=== PATIENT | female | born 1955 | race Caucasian/White ===

== ENCOUNTER → 2023-08-12 | Outpatient (CLI) | payer SELFPAY ==
--- NOTE | 2023-08-12 16:26 | CT_ITS ---
INDICATION: dilated bile ducts EXAMINATION: CT ABDOMEN WITH IV CONTRAST CT Abdomen W/ Contrast Injection TECHNIQUE: Helically acquired images were obtained of the abdomen following IV contrast. A radiation dose optimization technique was used for this scan. IV Contrast dosage and agent: Oral contrast: None. RADIATION DOSAGE (If Supplied By Facility): CTDIvol = ( 16.58 ) mGy, DLP = ( 551.69 ) mGycm COMPARISON: FINDINGS: LOWER CHEST: Lung bases are clear. No cardiomegaly or pericardial effusion. LIVER: Homogeneous. No focal mass. GALLBLADDER AND BILIARY TREE: Cholelithiasis. Mild gallbladder wall thickening. There is intra- and extrahepatic biliary ductal dilation. PANCREAS: No focal cystic or solid mass. SPLEEN: Normal size without focal cystic or solid mass. ADRENAL GLANDS: No nodules. KIDNEYS AND URETERS: Normal renal size and position. No hydronephrosis. PERITONEUM: No ascites or free air. No other fluid collection. BOWEL: No stomach or bowel distension. No focal inflammatory change. LYMPH NODES: No enlarged mesenteric or retroperitoneal lymph nodes. VESSELS: Aorta is non-dilated. ABDOMINAL WALL: No discrete abdominal wall hernia. BONES: No lytic or blastic abnormality. Disc protrusion at L5-S1 posteriorly. CT/Abdomen WITH IV Contrast IMPRESSION: Cholelithiasis. Mild gallbladder wall thickening. There is intra- and extrahepatic biliary ductal dilation. Electronically Signed: Abdirizak Esposito DO at 17:04 EDT ,
[2023-08-12 17:00] LABS: CREATININE FINGERSTICK < 1.0 mg/dL (0.55-1.02); EGFR FINGERSTICK > 60.0000 mL/min (>60)
== END | disposition home or self-care (01) ==
PROVIDERS: PCP Physician Assistant; Referring Provider Surgery; Visit Provider Surgery
DX: K83.8 Other specified diseases of biliary tract (principal); K80.20 Calculus of gallbladder without cholecystitis without obstruction; R74.8 Abnormal levels of other serum enzymes
CPT/HCPCS: 74160; Q9967

== ENCOUNTER → 2023-08-12 | Outpatient (CLI) | payer SELFPAY ==
[2023-08-12 14:48] LABS: Absolute Lymphocyte Count 1.99 X10^3/uL (0.83-4.51); Absolute Neutrophil Count 1.9 X10^3/uL (2.0-7.7); Basophil# 0.03 X10^3/uL; Basophil% 0.7 % (0-1); Eosinophil# 0.08 X10^3/uL; Eosinophils% 1.8 % (0-5); Hematocrit 40.2 % (37-47); Hemoglobin 13.3 g/dL (12.0-15.0); Lymphocyte # 1.99 X10^3/ul (0.83-4.51); Lymphocyte % 44.5 % (19-41); Mean Corp Hgb Conc 33.1 g/dL (32-36); Mean Corpuscular Volume 90.5 fL (81-99); Mean Platelet Vol. 9.2 fl (6.2-12.0); Monocyte# 0.43 X10^3/uL; Monocyte% 9.6 % (0-10); NRBC Flagged by Analyzer 0 % (0-5); Neutrophil # 1.93 X10^3/uL (2.7-7.7); Neutrophil % 43.2 % (47-70); Platelet Count 171 K/mm3 (150-450); RBC Distribution Width CV 12.6 % (11.6-14.6); RBC Distribution Width SD 41.7 fl (35.1-43.9); Red Blood Count 4.44 M/mm3 (4.2-5.4); White Blood Count 4.5 K/mm3 (4.4-11.0)
[2023-08-12 15:09] LABS: AST(SGOT) 26 U/L (15-37); Alanine Aminotransfer ALT/SGPT 44 U/L (13-56); Albumin, Serum 3.6 g/dL (3.2-5.0); Alkaline Phosphatase 217 U/L (45-117); Bilirubin, Direct 0.16 mg/dL (0.00-0.30); Globulin 3.5 g/dL (2.2-4.2); Protein, Total 7.1 g/dL (6.4-8.2)
== END | disposition home or self-care (01) ==
LOC: PAVLAB 14:19
PROVIDERS: PCP Physician Assistant; Referring Provider Surgery; Visit Provider Surgery
DX: K80.20 Calculus of gallbladder without cholecystitis without obstruction (principal)
CPT/HCPCS: 36415; 80076; 85025

== ENCOUNTER 2023-09-02 08:48 | Observation (INO) | payer SELFPAY ==
--- NOTE | 2023-09-01 | GALL_PTH ---
PATIENT: HELENA BRYAN LOC: MS3 U#:[id number] AGE/SX: 67/F ROOM: [facility] [place] RE09/02/[address]: Dr. Samra Duval MD : 1955 BED: 1 DIS: 09/02/2023 SPEC #: [id number] RECD: 09/02/23 11:05 STATUS: GUILLERMO RELuigi #: [id number] FRANCINE: 09/01/23 00:[address]: Samra Duval DEPT: SURGICAL PATHOLOGY RECD BY: Ben Jiménez ENTERED: 09/02/23 11:05 SP TYPE: RONY SANTOS DR: Camron Christianson PA-C Tissues: Gallbladder, NOS Procedures: Surgery Specimen Level III HEADER OPERATION: Laparoscopic, cholecystectomy with IOC PRE-OP DIAGNOSIS: Cholelithiasis, elevated liver enzymes, dilated bile duct TISSUE SUBMITTED: Gallbladder MICROSCOPIC DIAGNOSIS Gallbladder, cholecystectomy: Chronic cholecystitis and cholelithiasis. AM/mr 09/03/2023 MICROSCOPIC DESCRIPTION Slides are reviewed. GROSS DESCRIPTION Received is one container labeled with the patient's name and designated gallbladder. The specimen consists of a previously partially opened gallbladder measuring 8.0 cm in length and up to 2.7 cm in diameter. The external surface is pink-brady, smooth and glistening for the most part. Focally it is granular, hemorrhagic and contains cautery artifact. The gallbladder contains small amount of brownish-hemorrhagic bile. Present in the gallbladder and in the container are multiple multifaceted brown stone measuring in aggregate 7.0 x 4.0 x 3.0 cm and 0.2 to 3.5 cm in greatest dimension. The mucosa is bile-stained and without any mass lesions. The gallbladder wall measures up to 0.3 cm in thickness. Brine Room Laborer sections from the gallbladder and the cystic duct are submitted in one cassette. / SJ: 09/02/23 TC:3 CPT: 22558
[2023-09-02] VITALS (15 sets, daily range): BP systolic 112–166; BP diastolic 64–78; PULSE 58–87; RESP 16–18; TEMP 36.1–36.9; O2SAT 92–100; BMI 33.3
--- NOTE | 2023-09-02 06:30 | RAD_ITS ---
STUDY: INTRAOPERATIVE CHOLANGIOGRAM. REASON FOR EXAM: Female, 67 years old. Laparoscopic cholecystectomy. FLUOROSCOPY TIME (if supplied): ( 40.7 seconds ) minutes/seconds. 13.29 mGy. TECHNIQUE: An intraoperative cholangiogram was performed by the surgeon. Imaging was submitted. COMPARISON: None. FINDINGS: No intraluminal filling defect is seen. There is free flow of contrast into the duodenum. RAD/Cholangiogram/ O R,Initial IMPRESSION: Unremarkable intraoperative cholangiogram. Electronically Signed: Torrey Silverman MD at 8:41 EDT ,
[2023-09-02] MEDS: Lactated Ringers 1,000 ML 15 ML IV (06:44)
--- NOTE | 2023-09-02 06:46 | EKG12_ITS ---
Test Reason : PREOP Blood Pressure : / mmHG Vent. Rate : 062 BPM Atrial Rate : 062 BPM P-R Int : 170 ms QRS Dur : 084 ms QT Int : 416 ms P-R-T Axes : 028 002 014 degrees QTc Int : 422 ms Normal sinus rhythm Inferior infarct , age undetermined Cannot rule out Anterior infarct , age undetermined vs V2, V3 lead reversal Abnormal ECG Confirmed by Janak Yang ([id number]), web content editor FILIPPO BILL ([id number]) on 09/10/2023 1:16:09 PM Referred By: Camron Christianson Confirmed By:Janak Yang
--- NOTE | 2023-09-02 07:10 | HP.PCM.SX_ITS ---
HPI - General General Date of Service: 09/02/23 HPI Narrative HELENA BRYAN, is a 67 F who presents for laparoscopic cholecystectomy with cholangiograms. Patient's repeat blood work at time of office visit LFTs were normal also did a CAT scan did not obviously see any choledocholithiasis like the first CAT scan and the ducts were less dilated. Patient's epigastric abdominal pain has improved with the omeprazole given at time of appointment. office visit 08/12/23 HPI HPI: 67-year-old female presents for epigastric pain states she has had it for about a couple months describes as more of a pressure but rates it a 5/10 does not take any pain meds for it. Patient did have a CT abdomen pelvis with called a dilated common bile duct as well as a large gallstone in the gallbladder and her AST and ALT were elevated with an elevated alk phos but normal total bili on 07/11/2023. Patient does state her pain was worse at that time currently states it is little better. Patient was able to eat a chicken sandwich as well as chicken nuggets for lunch today without any increased issues or nausea. Patient's never had any abdominal surgeries not on any medications. [facility] Medical History (Updated 09/02/23 @ 07:[address] Samra Duval MD) Wears glasses Wears dentures Post-menopausal Arthritis Gastric reflux Non-smoker Leg cramps History of edema Constipation Home Medications ?Medication ?Instructions ?Recorded ?Last Taken ?Type ascorbic acid (vitamin C) 500 mg 500 mg PO DAILY 08/29/23 09/01/23 History tablet (C-500) omeprazole 40 mg capsule,delayed 40 mg PO DAILY 08/29/23 09/02/23 History release Allergy/AdvReac Type Severity Reaction Status Date / Time No Known Allergies Allergy Verified 09/02/23 06:27 Family History (Updated 08/12/23 @ 13:34 by Alexa Wade) Mother Hypertension Surgical History (Updated 08/29/23 @ 09:56 by Jyoti Saure) Hx of vaginal surgery Social History (Updated 08/12/23 @ 13:35 by Alexa Wade) Smoking Status: Never smoker alcohol intake: never Vital Signs Vital Signs Vital Signs: 09/02/23 06:30 09/02/23 06:32 Temperature 97.0 F L Temperature Source Temporal Pulse Rate 67 Respiratory Rate 18 Respiratory Pattern Normal Blood Pressure 140/68 H Blood Pressure Mean 92 Blood Pressure Source Monitor Blood Pressure Position Semi-Fowlers Blood Pressure Location Left Arm Pulse Ox 100 Oxygen Delivery Method Warm Humidified Isolette Weight Weight: 176 lb 2.389 oz Body Mass Index (BMI) 33.3 Physical Exam Const alert, oriented x3 and no apparent distress HEENT normocephalic and head/scalp atraumatic Resp normal respiratory effort Cardio regular rate GI soft to palpation and non-tender; Negative for non-distended Palpation: Negative for guarding Extremity no clubbing, cyanosis or edema Skin no rashes or lesions noted Neuro CN's II-XII intact bilaterally Psych mental status grossly normal Assessment & Plan Assessment/Plan (1) Cholelithiasis: (2) Elevated liver enzymes: (3) Dilated bile duct: PLAN: Plan Patient's elevated liver functions as well as dilated bile ducts had resolved/improved per CAT scan done at the time of office visit 08/12/2023 Reviewed the anatomy with the patient and discussed the procedure: laparoscopic cholecystectomy with possible cholangiograms, possible open. Review risks including but not limited to bleeding, infection, hernia, bile leak, retained gallstones requiring another procedure ERCP- Endoscopic Retrograde Cholangiopancreatography, injury to another organ (bile ducts, common bile duct, small bowel, etc.) and conversion to an open procedure. All questions were answered. Samra Duval M.D. Pager: [phone] [facility] [address] [place] [address], [address] [place] [id number] Office: [phone]
[2023-09-02] MEDS: Cefazolin 2 GM in 0.9% Normal Saline (100mL Bag) 100 ML IV (07:23)
[2023-09-02] MEDS: Bupivacaine Mpf 0.5% 30 ML VIAL (08:45)
--- NOTE | 2023-09-02 08:47 | OP.PCM_ITS ---
Report of Operation Date of Procedure: 09/02/23 Pre-Operative Diagnosis: Cholelithiasis, history of elevated LFTs and dilated c ommon bile duct Post-Operative Diagnosis: same, choledocholithiasis Surgery/Procedure Performed:: laparoscopic cholecystectomy with cholangiograms Description of Surgical Findings:: distal common bile duct stone seen on cholangiogram Surgeon: Samra Duval safety belt installer: Elida Mayo Type of Anesthesia: General/Supplemental
--- NOTE | 2023-09-02 08:47 | PCM.OPRPT ---
Report of Operation Date of Procedure: 09/02/23 Pre-Operative Diagnosis: Cholelithiasis, history of elevated LFTs and dilated common bile duct Post-Operative Diagnosis: same, choledocholithiasis Surgery/Procedure Performed:: laparoscopic cholecystectomy with cholangiograms Description of Surgical Findings:: distal common bile duct stone seen on cholangiogram Surgeon: Samra Duval benchroom shop optician: Elida Mayo Type of Anesthesia: General/Supplemental Anesthesiologist: Roberto Ingram Special Medications: Ancef 2 g IV x 1 Specimen's removed: gallbladder and stones Estimated Blood Loss (mL): 10 cc Description of Procedure: Indications: this is a 67 year-old female who developed abdominal pain and on workup was initially found to have choledocholithiasis/dilated bile ducts and elevated liver functions which did resolve with repeat testing/imaging and had cholelithiasis. Laparoscopic cholecystectomy with cholangiograms was elected. Description procedure: The patient was placed on operating table in supine position. A timeout was completed verifying correct patient, procedure, site, position and special equipment prior to beginning procedure. General Anesthesia was induced. The abdomen was prepped and draped in usual sterile fashion. An incision was made in the natural skin line [above] the umbilicus. The fascia was elevated and incised. The peritoneum was elevated and incised. Entry into the peritoneum was confirmed visually and no bowel was noted in the vicinity of the incision. Ramirez trocar was placed. The abdomen was insufflated with carbon dioxide to a pressure of 12-15 mmHg. Patient tolerated insufflation well. The laparoscope was then inserted and abdomen inspected. No injuries from initial trocar placement were noted. Additional trochars were then inserted in the following locations 5 mm trocar in the epigastrium and 2 more 5 mm trochars along the right costal margin. The abdomen was inspected Noted to have a dilated common bile duct. The table is placed in reverse Trendelenburg position with the right side up. The adhesions between the gallbladder and omentum were lysed sharply. The dome of the gallbladder was grasped with atraumatic grasper passed through the lateral port and retracted over the dome of the liver. Infundibulum was then grasped with atraumatic grasper through the midclavicular port and retracted to the right lower quadrant. Graspers did cause a hole in gallbladder wall inadvertently due to the thin walled gallbladder. Due to multiple stones this hole was enlarged and stones removed and placed in the endoscopic retrieval bag to prevent losing any stones during the procedure. This maneuver exposed Calot's triangle. The peritoneum overlying the gallbladder infundibulum was then incised and cystic duct and artery identified and circumferentially dissected. Ford catheter was used for cholangiograms. The cholangiogram showed Choledocholithiasis in the distal common bile duct some contrast did make it to the duodenum, good filling of the right and left bile ducts as well. The cystic duct and artery were then doubly clipped and divided close to the gallbladder. The gallbladder then dissected from its peritoneal attachments by electrocautery. Hemostasis was checked and the gallbladder and contained stones were removed using the endoscopic retrieval bag through the umbilical port?this was enlarged due to the 2 and half centimeter stone. The gallbladder is passed off table as specimen. The gallbladder fossa was irrigated with saline and hemostasis obtained and all stones were removed. There is no evidence of bleeding from the gallbladder fossa or cystic artery leakage of bile from the cystic duct stump. Secondary trochars removed under direct vision. No bleeding was noted the trocar sites. The laparoscope was withdrawn and umbilical trocar removed. The abdomen was allowed to collapse. The fascia of the 12 mm trocar was closed with 3 [id number] 0 Vicryl suture. The skin was closed with sutures of 4-0 Monocryl and Steri-Strips. The patient was extubated. The patient tolerated procedure well and was taken to the postanesthesia care unit in stable condition. Complications none
[2023-09-02] MEDS: Pantoprazole Sodium 40 MG in 0.9% Normal Saline (100mL MB+) 100 ML 330 MG IV (09:58)
[2023-09-02] MEDS: 0.9% Normal Saline (1000mL) 1,000 ML 100 ML IV (11:10)
[2023-09-02] MEDS: Piperacil/Tazobactam 3.375 GM in 0.9% Normal Saline (50mL MB+) 50 ML IV (11:17)
--- NOTE | 2023-09-02 11:54 | DCINST_ITS ---
Discharge Instructions Diet Discharge Diet: Light diet - advance as tolerated Activity Discharge Activity: May Not Drive (while taking narcotic pain medications.) May shower in (days): 1 Lifting Restrictions: no lifting >20 lbs x 2 wks, no strenuous exercise for 4 wks Dressing / Incision Call your doctor if your incision/area has: Continuous Slow Oozing, Sudden Increased Bleeding, Increased Pain/ Swelling, Increased Redness, Foul Smelling Discharge and Swelling at the incision site Call your doctor if you observe: Fever of 101 or Higher Remove Dressing in: 2 days Cleanse incision/area with: Soap & Water Additional Dressing/Incision Instructions:: Steri-Strips will fall off in 7 to 10 days, if they do not fall off okay to remove after 10 days. Follow Up Care Please Follow Up With: Samra Duval MD When: Call the office for a follow-up appointment 2 weeks; after 5 PM and on the weekends call [phone] with any concerns. Test Results: Test results from this visit will be discussed in further detail at your follow- up appointment, if applicable. Discharge Plan Admission Admit Date/Time: 09/02/23 08:48 Primary Reason for Your Visit: s/p lap cecy and ERCP Attending Provider: Samra Duval Primary Care Provider: Camron Christianson Discharge Orders/Prescriptions Prescriptions: New tramadol 50 mg tablet 50 mg PO Q6H PRN (Reason: pain) Qty: 10 0RF Continued omeprazole 40 mg capsule,delayed release(DR/EC) 40 mg PO DAILY ascorbic acid (vitamin C) [C-500] 500 mg tablet 500 mg PO DAILY Referrals / Follow Up: Camron Christianson PA-C [Primary Care Provider] - FriendEvaristo DO [Med Staff - Active Staff] - Within 1 Month (for ERCP stent removal) Disposition Disposition (needs filled in before D/C Order can be placed): Home, Self Care
--- NOTE | 2023-09-02 15:45 | RAD_ITS ---
Fluoroscopic guided ERCP INDICATION: Cholelithiasis and bile ductal dilatation TECHNIQUE: Fluoroscopic-guided ERCP was performed in usual fashion by racing secretary. DLP was 13.76 mGy FINDINGS: Fluoroscopic-guided ERCP was performed in the anterior projection in usual fashion. 10 images were obtained to document findings during the study. For more complete information recommend correlation with gastroenterology notes RAD/ERCP Biliary/Pancreas IMPRESSION: Fluoroscopic guided ERCP Electronically Signed: Nacho Younger MD at 19:55 EDT ,
--- NOTE | 2023-09-02 16:26 | OP.CCLET_ITS ---
09/02/2023 Camron Christianson Do Re : ERCP procedure for Lindsay Foster Dear Sammy This procedure was performed on Saturday, September 02, 2023. My impressions and recommendations are as follows: Impressions : - The biliary system were moderately dilated, with a stone causing an obstruction. - Choledocholithiasis was found. Complete removal was accomplished by biliary sphincterotomy and balloon extraction. - A biliary sphincterotomy was performed. - The biliary tree was swept. - The left main hepatic duct was successfully dilated. - One temporary stent was placed into the common bile duct. Recommendations : My findings are described in the full procedure note, which is enclosed. If I can be of further assistance, please feel free to contact me at . Sincerely, Evaristo Bagley DO 09/02/2023 4:25:31 PM This report has been signed electronically.
--- NOTE | 2023-09-02 16:26 | OP.ERCP_ITS ---
Patient Name: Lindsay Foster Procedure Date: 09/02/2023 3:27 PM Date of : 1955 Age: 67 Procedure: ERCP Indications: Bile duct stone(s) Providers: Evaristo Bagley DO Referring MD: Camron Christianson Do Medicines: Monitored Anesthesia Care Patient Profile: This is a 67 year old female. Refer to note in patient chart for documentation of history and physical. Patient has symptoms of acute right upper quadrant abdominal pain. She is status post laparoscopic cholecystectomy. Complications: No immediate complications. Procedure: Pre-Anesthesia Assessment: - Prior to the procedure, a History and Physical was performed, and patient medications and allergies were reviewed. The patient is competent. The risks and benefits of the procedure and the sedation options and risks were discussed with the patient. All questions were answered and informed consent was obtained. Patient identification and proposed procedure were verified by the physician. Mental Status Examination: alert and oriented. Airway Examination: normal oropharyngeal airway and neck mobility. Respiratory Examination: clear to auscultation. CV Examination: normal. Prophylactic Antibiotics: The patient does not require prophylactic antibiotics. Prior Anticoagulants: The patient has taken no anticoagulant or antiplatelet agents. ASA Grade Assessment: II - A patient with mild systemic disease. After reviewing the risks and benefits, the patient was deemed in satisfactory condition to undergo the procedure. The anesthesia plan was to use general anesthesia. Immediately prior to administration of medications, the patient was re-assessed for adequacy to receive sedatives. The heart rate, respiratory rate, oxygen saturations, blood pressure, adequacy of pulmonary ventilation, and response to care were monitored throughout the procedure. The physical status of the patient was re-assessed after the procedure. After obtaining informed consent, the scope was passed under direct vision. Throughout the procedure, the patient's blood pressure, pulse, and oxygen saturations were monitored continuously. The Duodenoscope was introduced through the mouth, and advanced to the duodenum and used to inject contrast into the bile duct. The ERCP was accomplished without difficulty. The patient tolerated the procedure well. Scope In: 4:04:54 PM Scope Out: 4:17:37 PM Total Procedure Duration Time 0 hours 12 minutes 43 seconds Findings: The regional sales coordinator film was normal. The esophagus was successfully intubated under direct vision. The scope was advanced to a normal major papilla in the descending duodenum without detailed examination of the pharynx, larynx and associated structures, and upper GI tract. The upper GI tract was grossly normal. The bile duct was deeply cannulated with the short-nosed traction sphincterotome. Contrast was injected. I personally interpreted the bile duct images. There was brisk flow of contrast through the ducts. Image quality was excellent. Contrast extended to the entire biliary tree. Opacification of the entire biliary tree except for the cystic duct and gallbladder was successful. The maximum diameter of the ducts was 9 mm. The upper third of the main bile duct contained one stone, which was 6 mm in diameter. The entire biliary tree except for the cystic duct and gallbladder were moderately dilated, with a stone causing an obstruction. The largest diameter was 10 mm. A straight Roadrunner wire was passed into the biliary tree. A 5 mm biliary sphincterotomy was made with a traction (standard) sphincterotome. The sphincterotomy oozed blood. The biliary tree was swept with a 12 mm balloon starting at the bifurcation. All stones were removed. Dilation of the left main hepatic duct with 5-7-8.5 Fr catheter dilator was successful. One 10 Fr by 5 cm temporary stent was placed 5 cm into the common bile duct. Bile flowed through the stent. The stent was in good position. Impression: - The biliary system were moderately dilated, with a stone causing an obstruction. - Choledocholithiasis was found. Complete removal was accomplished by biliary sphincterotomy and balloon extraction. - A biliary sphincterotomy was performed. - The biliary tree was swept. - The left main hepatic duct was successfully dilated. - One temporary stent was placed into the common bile duct. Procedure Code(s): --- Professional --- 49062, Endoscopic retrograde cholangiopancreatography (ERCP); with placement of endoscopic stent into biliary or pancreatic duct, including pre- and post-dilation and guide wire passage, when performed, including sphincterotomy, when performed, each stent 64449, Endoscopic retrograde cholangiopancreatography (ERCP); with removal of calculi/debris from biliary/pancreatic duct(s) 24446, 26, Endoscopic catheterization of the biliary ductal system, radiological supervision and interpretation 32405, Unlisted procedure, biliary tract CPT copyright 2021 [employer]. All rights reserved. The codes documented in this report are preliminary and upon pump erector helper review may be revised to meet current compliance requirements. Evaristo Bagley DO 09/02/2023 4:25:31 PM This report has been signed electronically. Number of Addenda: 0 Note Initiated On: 09/02/2023 3:27 PM
== END 2023-09-02 18:49 | disposition home or self-care (01) ==
LOC: SDC 10:26 → MS3 10:26
PROVIDERS: Internal Medicine Gastroenterology; Admitting Provider Surgery; PCP Physician Assistant; Referring Provider Physician Assistant; Visit Provider Surgery
PROC: (CPT 47610; principal; 2023-09-02 07:10)
DX: K80.65 Calculus of gallbladder and bile duct with chronic cholecystitis with obstruction (principal); K21.9 Gastro-esophageal reflux disease without esophagitis; Z79.899 Other long term (current) drug therapy; R94.31 Abnormal electrocardiogram [ECG] [EKG]
CPT/HCPCS: 47563; 00790; 43264; 43274; 74300; 74330; 76000; 88304; 93005; 94668; 99221; J7030; J7120; G0378; J2405

== ENCOUNTER 2023-10-13 11:22 | Day surgery (SDC) | payer SELFPAY ==
[2023-10-13] VITALS (9 sets, daily range): BP systolic 112–146; BP diastolic 67–86; PULSE 52–64; RESP 16; TEMP 36.2–36.8; O2SAT 96–100; BMI 33.2
--- NOTE | 2023-10-13 11:30 | PCM.HP.STD ---
HPI - General General Date of Admission: 10/13/23 Date of Service: 10/13/23 Chief Complaint: Stent removal HPI Narrative HELENA BRYAN, is a 68 F -year-old female presented for epigastric pain states she has had it for about a couple months describes as more of a pressure but rates it a 5/10 does not take any pain meds for it. Patient did have a CT abdomen pelvis with called a dilated common bile duct as well as a large gallstone in the gallbladder and her AST and ALT were elevated with an elevated alk phos but normal total bili on 07/11/2023. Patient does state her pain was worse at that time currently states it is little better. Patient was able to eat a chicken sandwich as well as chicken nuggets for lunch today without any increased issues or nausea. Patient's never had any abdominal surgeries not on any medications. She was identified as having acute cholecystitis and choledocholithiasis. She underwent cholecystectomy she underwent an ERCP with stone extraction and stent placement. She comes back in for stent removal today. [facility] Medical History Wears glasses Wears dentures Post-menopausal Arthritis Gastric reflux Non-smoker Leg cramps History of edema Constipation Home Medications ?Medication ?Instructions ?Recorded ?Last Taken ?Type NK 10/10/23 Unknown History Allergy/AdvReac Type Severity Reaction Status Date / Time No Known Allergies Allergy Verified 10/13/23 11:49 Family History Mother Hypertension Surgical History S/P ERCP S/P laparoscopic cholecystectomy Hx of vaginal surgery Social History Smoking Status: Never smoker alcohol intake: never ROS Review of Systems ROS Unobtainable: other Constitutional Constitutional: Denies fatigue, fever(s), poor appetite, weight gain or weight loss ENT HEENT: Denies mouth lesions Cardiovascular Cardiovascular: Denies abdominal bloating, abdominal edema or abdominal pain Respiratory/Chest Respiratory/Chest: Denies change in mental status, change in phlegm color, chest congestion or chest tightness Gastrointestinal Gastrointestinal: Denies belching, bloating, change in bowel habits, change in stool character, chewing difficulty, coffee ground emesis, constipation, cramping, diarrhea, dyspepsia, dysphagia, early satiety, excessive flatus, fecal incontinence, heartburn, hematemesis, hematochezia, hemorrhoids, loose stools, melena, nausea, odynophagia, rectal bleeding, tenesmus, vomiting or weight changes Genitourinary Genitourinary: Denies abdominal discomfort, burning urination or itching Musculoskeletal Musculoskeletal: Reports as per HPI; Denies muscle weakness or myalgias Integumentary Integumentary: Denies jaundice Neurologic Neurologic: Denies lack of coordination or weakness Psychiatric Psychiatric: Denies confusion, depression, memory loss, mood swings, paranoia or suicidal ideation Endocrine Endocrinology: Denies systems reviewed and no addt'l complaints, except as documented Hematologic/Lymphatic Hematologic/Lymphatic: Denies anemia, easy bleeding, easy bruising or lymphadenopathy Allergic/Immunologic Allergic/Immunologic: Denies systems reviewed and no addt'l complaints, except as documented Vital Signs Vital Signs Vital Signs: 10/13/23 11:49 10/13/23 11:49 10/13/23 12:41 Temperature 98.2 F 98.2 F Temperature Source Temporal Pulse Rate 64 64 Respiratory Rate 16 16 Respiratory Pattern Normal Blood Pressure 112/73 112/73 Blood Pressure Mean 86 Blood Pressure Source Monitor Blood Pressure Position Semi-Fowlers Blood Pressure Location Left Arm Baseline BP Pulse Ox 100 100 Oxygen Delivery Method Room Air 10/13/23 16:01 10/13/23 16:05 10/13/23 16:10 Temperature 97.1 F L Temperature Source Temporal Pulse Rate 62 60 58 L Respiratory Rate 16 16 16 Respiratory Pattern Normal Blood Pressure 146/86 H 141/82 H 136/71 H Blood Pressure Mean 106 101 92 Blood Pressure Source Monitor Monitor Monitor Blood Pressure Position Semi-Fowlers Semi-Fowlers Semi-Fowlers Blood Pressure Location Left Arm Left Arm Left Arm Baseline BP 112/73 112/73 112/73 Pulse Ox 96 96 97 Oxygen Delivery Method Room Air Room Air Room Air 10/13/23 16:11 10/13/23 16:15 10/13/23 16:29 Temperature 97.3 F L 97.2 F L Temperature Source Temporal Pulse Rate 62 59 L 52 L Respiratory Rate 16 16 16 Respiratory Pattern Blood Pressure 146/86 H 137/83 H 146/67 H Blood Pressure Mean 101 93 Blood Pressure Source Monitor Monitor Blood Pressure Position Semi-Fowlers Semi-Fowlers Blood Pressure Location Left Arm Left Arm Baseline BP 112/73 112/73 Pulse Ox 96 97 99 Oxygen Delivery Method Room Air Room Air Room Air 10/13/23 16:58 10/13/23 16:58 Temperature Temperature Source Pulse Rate Respiratory Rate Respiratory Pattern Normal Blood Pressure Blood Pressure Mean Blood Pressure Source Blood Pressure Position Blood Pressure Location Baseline BP 112/73 Pulse Ox Oxygen Delivery Method Weight Weight: 176 lb Body Mass Index (BMI) 33.2 Physical Exam Const alert, oriented x3 and no apparent distress HEENT normocephalic and head/scalp atraumatic Resp normal respiratory effort Cardio regular rate GI soft to palpation and non-tender; Negative for non-distended Palpation: Negative for guarding Extremity no clubbing, cyanosis or edema Skin no rashes or lesions noted Neuro CN's II-XII intact bilaterally Psych mental status grossly normal Assessment & Plan Assessment/Plan (1) S/P laparoscopic cholecystectomy: (2) Choledocholithiasis: PLAN: Plan 68-year-old comes in with acute abdominal pain discovered to have cholelithiasis and cholecystitis along with choledocholithiasis status post laparoscopic cholecystectomy and status post ERCP with stent placement after sphincterotomy and balloon extraction. She should undergo repeat ERCP with removal of the patient's stent or replacement. She was explained alternatives, risk, benefits include understanding bleeding, infection, sepsis, perforation, need for emergent. She have an ASA of 3.
--- NOTE | 2023-10-13 11:35 | EKG12_ITS ---
Test Reason : PREOP Blood Pressure : / mmHG Vent. Rate : 066 BPM Atrial Rate : 066 BPM P-R Int : 152 ms QRS Dur : 072 ms QT Int : 402 ms P-R-T Axes : 038 -01 013 degrees QTc Int : 421 ms Normal sinus rhythm AN NOT RULE OUT Inferior infarct (cited on or before 02-SEP-2023) Cannot rule out Anterior infarct (cited on or before 02-SEP-2023) Abnormal ECG When compared with ECG of 02-SEP-2023 06:32, No significant change was found Reconfirmed by Janak Yang ([id number]), storekeeper steward FILIPPO BILL ([id number]) on 10/20/2023 10:41:52 AM Referred By: Camron Christianson Confirmed By:Janak Yang
[2023-10-13] MEDS: Lactated Ringers 1,000 ML 15 ML IV (11:57)
--- NOTE | 2023-10-13 12:32 | PRE.ANES_ITS ---
ASA Classification* ASA Classification ASA Classification: 2 Assessment & Plan Anesthesia* Anesthesia Assessment Anesthesia Assessment: Discussed sedation and/or anesthesia options, risks, benefits, and alternatives with patient/parents/legal guardian/POA. Questions invited. The patient/parents/legal guardian/POA seems to understand and agrees to proceed with anesthesia plan. Reviewed the physical assessment, medical history, allergy history and patient home medications list prior to surgery/procedure/anesthetic and documented any changes. Performed airway and anesthesia risk assessments. Anesthesia Type Anesthesia Type: MAC History Source History Obtained from:: Patient and Chart Pre-Assessment Diagnosis/Proposed Procedure Planned Operative Procedure(s): ERCP STENT PULL Anesthesia History Anesthesia History - professional nurse: Anesthesia History - professional nurse Hx Hospitalization No 10/10/23 14:07 Any Problems With Anesthesia No 10/10/23 14:07 Cholinesterase deficiency No 10/10/23 14:07 You/Your Family Experience No 10/10/23 14:07 fever (hyperthermia) with Relationship Recent Exposure to Contagious No 10/13/23 11:49 Disease Does patient have nerve No 10/10/23 14:07 stimulator Patient instructed to have device shut off --Does patient have Pacemaker No 10/13/23 11:49 or ICD? When Was Last Pacemaker Check QUESTION #4 FULL TEXT: You/Your Family Experience fever (hyperthermia) with Anesthesia Last Oral Intake Last Oral intake: Last Oral Intake NPO since 00:00 10/13/23 11:49 Meds taken in AM with sips of water? Meds patient instructed to take am of surgery PONV PONV - professional nurse: PONV - professional nurse Female Yes 10/10/23 14:07 HX of Motion Sickness No 10/10/23 14:07 HX of N/V After Surgery No 10/10/23 14:07 Non-Smoker Yes 10/10/23 14:07 Duration of Surgery greater Yes 10/10/23 14:07 than 60 minutes Number of Risk Factors 3 10/10/23 14:07 PONV Score Moderate Risk 10/10/23 14:07 Height & Weight Height & Weight: Anesthesia: Height & Weight Height 5 ft 1 in 10/13/23 11:49 Weight: 79.832 kg 10/13/23 11:49 Body Mass Index (BMI) 33.2 10/13/23 11:49 Respiratory Assessment Respiratory Assessment - professional nurse: Respiratory Tract Infection Hx - professional nurse Hx Respiratory Tract Infection No 10/10/23 14:07 STOP Sleep Apnea STOP Sleep Apnea - professional nurse: STOP Sleep Apnea - professional nurse Hx Hypertension No 10/10/23 14:07 Hx Sleep Apnea No 10/10/23 14:07 CPAP BIPAP Do you snore loudly (louder Yes 10/10/23 14:07 than talking or can be heard Do you often feel tired/ Yes 10/10/23 14:07 fatigued/ sleepy during daytime? Has anyone observed you stop No 10/10/23 14:07 breathing during sleep? STOP Results Positive 10/10/23 14:07 QUESTION #5 FULL TEXT : Do you snore loudly (louder than talking or can be heard through closed doors)? Tobacco Use History Tobacco Use History - professional nurse: Tobacco Use History - professional nurse Tobacco Use Smoking Status Never smoker 10/10/23 14:07 Hx Tobacco Use No 10/10/23 14:07 Years Smoking Packs Smoked per Day Smoking Cessation Date was within the last 15 years Hx Smoking Cessation Date Hx Smoking Cessation Counseling Hematologic Medial History Hematologic Hx - professional nurse: Hematologic Medical Hx - pattern chain builder Hx of Blood Transfusion No 10/10/23 14:07 Hx of Transfusion in last 3 No 10/10/23 14:07 Months Date of Last Transfusion (if within last 3 months) Ever experience any problems No 10/10/23 14:07 with transfusion(s)? Specify any problems Hx of Preganancy in last 3 No 10/10/23 14:07 Months Nurse Filling Out Transfusion DSCHRIBER 10/10/23 14:07 & Questions: Date: 10/10/23 10/10/23 14:07 Time: 14:07 10/10/23 14:07 Patient unable to answer at this time (ie. confused, unrespo /Reproduction History /Reproductive History - professional nurse: /Reproductive Hx- professional nurse Hx Now Gestational Age (in weeks): EDC: Hx Hx Para Hx Section SAB No 10/10/23 14:07 Active Medications Active Medications: Current Medications Generic Name Dose Route Start Last Admin Trade Name Freq PRN Reason Stop Dose Admin Lactated Ringer's 1,000 mls @ 15 mls/hr 10/13/23 11:45 10/13/23 11:57 IV 15 mls/hr .Q48H RICKI Administration Anesthesia Focused Assessment* Temperature: 98.2 F Pulse Rate: 64 Blood Pressure: 112/73 Respiratory Rate: 16 Pulse Ox: 100 Airway Assessment Mouth opens: >3 cm Mallampati Score: I Teeth Condition: Dentures (Top dentures are out) and Missing (Missing a couple molars on the bottom. Rest are tight) Neck Range of motion (ROM): Full ROM Pertinent Findings EKG Pertinent Findings:: October 13, 2023 normal sinus rhythm. Possible inferior infarct possible anterior infarct. No change from September 02, 2019 Focused Labs Anesthesia Preop lab: CBC WBC 4.5 K/mm3 (4.4-11.0) 08/12/23 14:34 RBC 4.44 M/mm3 (4.2-5.4) 08/12/23 14:34 Hgb 13.3 g/dL (12.0-15.0) 08/12/23 14:34 Hct 40.2 % (37-47) 08/12/23 14:34 Plt Count 171 K/mm3 (150-450) 08/12/23 14:34 CHEMISTRY COAG Review of Systems (Anesthesia) ROS Narrative System reviewed and no additional complaints, except as documented. [facility] Medical History Wears glasses Wears dentures Post-menopausal Arthritis Gastric reflux Non-smoker Leg cramps History of edema Constipation Home Medications ?Medication ?Instructions ?Recorded ?Last Taken ?Type NK 10/10/23 Unknown History Allergy/AdvReac Type Severity Reaction Status Date / Time No Known Allergies Allergy Verified 10/13/23 11:49 Family History Mother Hypertension Surgical History S/P ERCP S/P laparoscopic cholecystectomy Hx of vaginal surgery Social History Smoking Status: Never smoker alcohol intake: never
--- NOTE | 2023-10-13 13:00 | FLU_PTH ---
PATIENT: HELENA BRYAN LOC: [facility] U#:[id number] AGE/SX: 68/F ROOM: RE10/13/[address]: Dr. Evaristo Bagley DO : 1955 BED: DIS: 10/13/2023 SPEC #: [id number] RECD: 10/13/23 16:10 STATUS: GUILLERMO QUAN #: [id number] FRANCINE: 10/13/23 13:[address]: Evaristo Bagley DEPT: CYTOLOGY RECD BY: Sangeetha Newton ENTERED: 10/14/23 08:22 SP TYPE: Fluid OTHR DR: Camron Christianson PA-C Tissues: A - Biliary tract, NOS B - Biliary tract, NOS C - Biliary tract, NOS Procedures: Special Stain Group II Surgery Specimen Level IV Cytospin Fluid Cytology Other HEADER OPERATION: ERCP, stent pull, brushings, stent placement PRE-OP DIAGNOSIS: Stent removal TISSUE SUBMITTED: A- ERCP stent for cytology, B- Cytology brushings of biliary stricture x3 slides, C- Cytology brush DIAGNOSIS CYTOLOGY A. ERCP stent and fluid for cytology (cytospin and cellblock): Negative for malignant cells. B. Cytology brush fluid (cytospin and cellblock): Negative for malignant cells. C. Biliary stricture brushing (smears): Negative for malignant cells. / 10/15/2023 COMMENT Correlation with clinical findings and appropriate follow up are necessary. CYTOLOGY STUDY Slides are reviewed. CYTOLOGY GROSS A. Received is 1 black stent and 0.2 ml of yellow material labeled with the patient's name and and designated per the requisition as ERCP Stent. Submitted for cytology preparation including cell block. B. Received are 3 smears labeled with the patient's name and designated per the requisition as Cytology brushings of biliary stricture. Submitted for staining. C. Received is 0.5 ml of yellow fluid with brush labeled with the patient's name and and designated per the requisition as Cytology brush. Submitted for cytology preparation including cell block. 10/14/2023 TC:5 CPT: 29655t2,40241f2,88562
--- NOTE | 2023-10-13 15:15 | RAD_ITS ---
STUDY: ERCP. REASON FOR EXAM: Female, 68 years old. ERCP, STENT PULL FLUOROSCOPY TIME (if supplied): ( ) minutes/seconds TECHNIQUE: COMPARISON: None. FINDINGS: RAD/ERCP Biliary/Pancreas IMPRESSION: Electronically Signed: Torrey Silverman MD at 11:15 EDT ,
--- NOTE | 2023-10-13 16:01 | PCM.POST.ANE ---
Anesthesia: Postop Eval I Current Vital Signs Temperature: 97.3 F Pulse Rate: 62 Blood Pressure: 146/86 Respiratory Rate: 16 Pulse Ox: 96 Oxygen Delivery Method: Room Air Assessment Airway patent: Yes Spontaneous unlabored respirations: Yes Mental status: Asleep nausea: No Vomiting: No Anesthesia Complication: No Fluid Hydration Crystalloid volume administer (ml): 1,200 Total IV fluid infused: 1,200 Progress Note Anesthesia document: Postop Eval 1 completed: Yes
--- NOTE | 2023-10-13 16:03 | OP.ERCP_ITS ---
Patient Name: Lindsay Foster Procedure Date: 10/13/2023 3:03 PM Date of : 1955 Age: 68 Procedure: ERCP Indications: Stent removal Providers: Evaristo Bagley DO Medicines: Monitored Anesthesia Care Patient Profile: This is a 68 year old female. Refer to note in patient chart for documentation of history and physical. Patient has symptoms of acute right upper quadrant abdominal pain and acute jaundice. Complications: No immediate complications. Procedure: Pre-Anesthesia Assessment: - Prior to the procedure, a History and Physical was performed, and patient medications and allergies were reviewed. The patient is competent. The risks and benefits of the procedure and the sedation options and risks were discussed with the patient. All questions were answered and informed consent was obtained. Patient identification and proposed procedure were verified by the physician in the pre-procedure area. Mental Status Examination: alert and oriented. Airway Examination: normal oropharyngeal airway and neck mobility. Respiratory Examination: clear to auscultation. CV Examination: normal. Prophylactic Antibiotics: The patient does not require prophylactic antibiotics. Prior Anticoagulants: The patient has taken no anticoagulant or antiplatelet agents. After reviewing the risks and benefits, the patient was deemed in satisfactory condition to undergo the procedure. The anesthesia plan was to use monitored anesthesia care (MAC). Immediately prior to administration of medications, the patient was re-assessed for adequacy to receive sedatives. The heart rate, respiratory rate, oxygen saturations, blood pressure, adequacy of pulmonary ventilation, and response to care were monitored throughout the procedure. The physical status of the patient was re-assessed after the procedure. After obtaining informed consent, the scope was passed under direct vision. Throughout the procedure, the patient's blood pressure, pulse, and oxygen saturations were monitored continuously. The Duodenoscope was introduced through the mouth, and advanced to the duodenum and used to inject contrast into the bile duct. The ERCP was accomplished without difficulty. The patient tolerated the procedure well. Scope In: 3:27:57 PM Scope Out: 3:49:05 PM Total Procedure Duration Time 0 hours 21 minutes 8 seconds Findings: The grease maker head film was normal. The esophagus was successfully intubated under direct vision. The scope was advanced to a normal major papilla in the descending duodenum without detailed examination of the pharynx, larynx and associated structures, and upper GI tract. The upper GI tract was grossly normal. The bile duct was deeply cannulated with the short-nosed traction sphincterotome. Contrast was injected. I personally interpreted the bile duct images. There was brisk flow of contrast through the ducts. Image quality was excellent. Contrast extended to the entire biliary tree. The main bile duct and entire biliary tree were diffusely dilated, secondary to a stricture. The largest diameter was 12 mm. A cholecystectomy had been performed. A straight Roadrunner wire was passed into the biliary tree. A 5 mm biliary sphincterotomy was made with a traction (standard) sphincterotome using ERBE electrocautery. There was no post-sphincterotomy bleeding. To discover objects, the biliary tree was swept with a 12 mm balloon starting at the bifurcation. Sludge was swept from the duct. Debris was swept from the duct. One stent was removed from the biliary tree using a snare and sent for cytology. The stent was found to be patent via the water column test. Cells for cytology were obtained by brushing in the middle third of the main bile duct and the left main hepatic duct. One 7 Fr by 12 cm temporary stent with a single external flap and a single internal flap was placed 5 cm into the common bile duct. Bile flowed through the stent. The stent was in good position. Impression: - The entire main bile duct and entire biliary tree were dilated, secondary to a stricture. - The patient has had a cholecystectomy. - A biliary sphincterotomy was performed. - The biliary tree was swept and sludge and debris were found. - One stent was removed from the biliary tree. - Cells for cytology obtained in the middle third of the main bile duct and in the left main hepatic duct. - One temporary stent was placed into the common bile duct. Procedure Code(s): --- Professional --- 65362, Endoscopic retrograde cholangiopancreatography (ERCP); with removal and exchange of stent(s), biliary or pancreatic duct, including pre- and post-dilation and guide wire passage, when performed, including sphincterotomy, when performed, each stent exchanged 88507, Endoscopic retrograde cholangiopancreatography (ERCP); with removal of calculi/debris from biliary/pancreatic duct(s) 28826, 26, Endoscopic catheterization of the biliary ductal system, radiological supervision and interpretation CPT copyright 2021 [employer]. All rights reserved. The codes documented in this report are preliminary and upon auto specialty services manager review may be revised to meet current compliance requirements. Evaristo Bagley DO 10/13/2023 4:02:27 PM This report has been signed electronically. Number of Addenda: 0 Note Initiated On: 10/13/2023 3:03 PM
--- NOTE | 2023-10-13 16:03 | OP.CCLET_ITS ---
10/13/2023 Camron Christianson Do Re : ERCP procedure for Lindsay Foster Dear Sammy This procedure was performed on Friday, October 13, 2023. My impressions and recommendations are as follows: Impressions : - The entire main bile duct and entire biliary tree were dilated, secondary to a stricture. - The patient has had a cholecystectomy. - A biliary sphincterotomy was performed. - The biliary tree was swept and sludge and debris were found. - One stent was removed from the biliary tree. - Cells for cytology obtained in the middle third of the main bile duct and in the left main hepatic duct. - One temporary stent was placed into the common bile duct. Recommendations : My findings are described in the full procedure note, which is enclosed. If I can be of further assistance, please feel free to contact me at . Sincerely, Evaristo Bagley DO 10/13/2023 4:02:27 PM This report has been signed electronically.
--- NOTE | 2023-10-14 10:56 | PCM.POSTANE2 ---
Anesthesia Postop Eval I Sum Postop Eval Completion status Anesthesia document: Postop Eval 1 completed: Yes Anesthesia Postop Eval I Summary Anesthesia Postop Eval I Summary: Anesthesia Postop Eval I: Assessment Summary Airway patent Yes 10/13/23 16:11 [email or web address] Spontaneous unlabored Yes 10/13/23 16:11 [email or web address] respirations Mental status Asleep 10/13/23 16:11 [email or web address] nausea No 10/13/23 16:11 [email or web address] Vomiting No 10/13/23 16:11 [email or web address] Anesthesia Postop Eval I: Fluid Summary Crystalloid volume administer 1,200 10/13/23 16:11 [email or web address] (ml) Colloids volume administered ( ml) Blood Product volume administered (ml) Total IV fluid infused 1,200 10/13/23 16:11 [email or web address] Anesthesia Postop Eval I: Summary Notes Anesthesia Complication No 10/13/23 16:11 [email or web address] Anesthesia Complication Comment: Post-operative progress note Anesthesia: Postop Eval II Evaluation Mental status: Awake and Calm Pain Level: 0 nausea: No Vomiting: No Complications Anesthesia Complication: No
[2023-10-15 16:10] LABS: Carbohydrate AG 19-9 42 U/mL (0-35); Cytoplasmic Ab (C-ANCA) <1:20 titer (Neg:<1:20); Perinuclear Ab (P-ANCA) <1:20 titer (Neg:<1:20)
== END 2023-10-13 17:45 | disposition home or self-care (01) ==
LOC: EN 11:26 → AC 11:27
PROVIDERS: PCP Physician Assistant; Referring Provider Physician Assistant; Visit Provider Internal Medicine Gastroenterology
PROC: (CPT 43260; principal; 2023-10-13 12:40)
DX: K83.1 Obstruction of bile duct (principal); Z90.49 Acquired absence of other specified parts of digestive tract
CPT/HCPCS: 43276; 43264; 36415; 74330; 76000; 86256; 86301; 88108; 88161; 88305; 88313; 93005; J7120; J2405

== ENCOUNTER 2023-10-15 17:37 | Inpatient (IN) | payer OTHER, SELFPAY ==
[2023-10-15] VITALS (8 sets, daily range): BP systolic 121–144; BP diastolic 64–73; PULSE 72–86; RESP 16–21; TEMP 36.6–37.7; O2SAT 93–100; BMI 32.5
--- NOTE | 2023-10-15 18:13 | EX.ED.DYSGE1 ---
HPI History of Present Illness Chief Complaint: Fever Detail of Chief Complaint: Fever Informant: patient Narrative Narrative: Patient presents to the emergency department complaint of a fever and not feeling well today. Patient states that 2 days ago she had a stent was placed in her biliary duct by Dr. Bagley. He also did some biopsies of the biliary duct. Today she developed a fever up to 104. She described chills and sweats. She denies cough or sore throat or runny nose. She denies vomiting or diarrhea. Denies significant abdominal pain. Patient denies urinary symptoms. She denies rashes. Denies sick contacts. [facility] Medical History Wears glasses Wears dentures Post-menopausal Arthritis Gastric reflux Non-smoker Leg cramps History of edema Constipation Home Medications ?Medication ?Instructions ?Recorded ?Last Taken ?Type NK 10/10/23 Unknown History Allergy/AdvReac Type Severity Reaction Status Date / Time No Known Allergies Allergy Verified 10/15/23 17:39 Family History Mother Hypertension Surgical History S/P ERCP S/P laparoscopic cholecystectomy Hx of vaginal surgery Social History household members: spouse Smoking Status: Never smoker alcohol intake: never substance use type: does not use ROS ROS ED Review of Systems ROS Unobtainable: other Constitutional Constitutional ED: Reports chills, fever(s), lethargy and sweats; Denies weight loss Eyes Eyes: Denies blurry vision, change in vision or diplopia ENT ENT ED: Denies rhinorrhea or sore throat Cardiovascular Cardiovascular: Denies chest pain, orthopnea or racing heartbeat Respiratory/Chest Respiratory/Chest: Denies cough, dyspnea, dyspnea on exertion, orthopnea or sputum Gastrointestinal Gastrointestinal: Denies abdominal pain, diarrhea, nausea or vomiting Genitourinary Genitourinary ED: Denies dysuria, hematuria or urinary frequency Musculoskeletal Musculoskeletal: Denies arthralgias, back pain, myalgias or neck pain Integumentary Denies abscess, Abrasions or rash Neurologic Neurologic: Denies headache(s) or weakness Psychiatric Psychiatric: Denies anxiety, depression or suicidal thoughts Endocrine Endocrinology: Denies polydipsia, polyphagia or polyuria Hematologic/Lymphatic Hematologic/Lymphatic: Denies easy bleeding, easy bruising or lymphadenopathy Allergic/Immunologic Allergic/Immunologic ED: Denies mouth swelling, tongue swelling or urticaria EXAM Physical Exam Const Vital Signs: 10/15/23 17:37 10/15/23 17:48 10/15/23 17:50 Temperature 97.8 F 99.1 F Temperature Source Temporal Oral Pulse Rate 79 75 Respiratory Rate 16 18 Respiratory Effort Normal Non-Labored Respiratory Pattern Normal Blood Pressure 127/73 H 129/66 H Blood Pressure Mean 91 87 Pulse Ox 100 97 Oxygen Delivery Method Room Air Room Air Positive well nourished and well developed General Appearance ED: well developed and NAD HEENT Reports TM's clear and moist mucous membranes normocephalic and atraumatic; Negative for trauma or tenderness Tympanic Membrane ED: Yes TM's clear Eyes PERRL and EOMs intact bilaterally General Eye ED: Negative for pale conjunctiva or scleral icterus Neck no lymphadenopathy, supple and no JVD General: Negative for tenderness Chest Wall inspection of chest normal and palpation of chest normal Chest: Negative for tenderness Resp normal respiratory effort and clear to auscultation bilaterally Effort and Inspection: Negative for respiratory distress or pain with movement Auscultation: Negative for rhonchi, wheezes or diminished lung sounds Cardio regular rate, regular rhythm, S1 normal heart sound, S2 normal heart sound and no murmurs Peripheral Pulses: pulses 2+ throughout GI normal to inspection, nondistended, normoactive bowel sounds, soft to palpation, non-tender and no masses GI Narrative: Abdomen soft with minimal discomfort in the epigastric region. There is no rebound, rigidity, or perineal signs. No mass palpated. Back/Spine no CVA tenderness and no thoracic nor lumbar tenderness Extremity normal to inspection General Extremety ED: Negative for edema General Extremity: Negative for edema Neuro oriented x3, CN's II-XII intact bilaterally, no sensory deficits noted and gait normal Sensorium / Orientation: awake, alert, oriented to person, oriented to place and oriented to time Motor Exam: strength 5/5 throughout and strength abnormal Psych mental status grossly normal Skin no rashes or lesions noted and no wounds MDM MDM MDM Narrative Medical decision making narrative: Patient presents with fever after having stent placed in the biliary duct. Denies significant abdominal pain. Denies any cough or sore throat. She had some vomiting after her procedure on her way home from the hospital 2 days ago. She has had no diarrhea. IV line established. Blood cultures ordered. CBC with differential obtained showed a normal WBC count. Chemistries unremarkable. LFTs had slight elevation. CT scan abdomen pelvis showed the recent placement of the biliary stent. No other acute abnormalities noted. Urinalysis was negative for infection. COVID flu and RSV testing was negative. 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 At this point etiology of fever unclear but would entertain possibility of a transient bacteremia from the procedure. Will start on Zosyn. Will admit until culture results return. Lab Data Attestation: I reviewed the patient's lab results. Discharge Plan Triage Chief Complaint: Fever ED Provider: Jacy Montero Dx/Rx/DC Orders Clinical Impression: Fever and chills, Elevated liver enzymes Prescriptions: No Action NK Primary Care Provider: Camron Christianson Referrals: Camron Christianson PA-C [Primary Care Provider] - Print Language: Belarusian Disposition Disposition: Acute Care Hospital [facility]
--- NOTE | 2023-10-15 18:18 | RAD_ITS ---
STUDY: X-RAY CHEST REASON FOR EXAM: Female, 68 years old. fever TECHNIQUE: AP portable COMPARISON: None. FINDINGS: Elevated right hemidiaphragm and minor basilar atelectasis or infiltrate.. There is no demonstrated pleural abnormality. Normal size heart. Normal mediastinum and blayne. Normal visualized pulmonary arteries. Normal visualized aortic arch and descending thoracic aorta. Normal visualized thoracic spine. Normal visualized ribs, clavicles, and shoulders. There is no demonstrated abnormality of the visualized soft tissue structures of the upper abdomen. RAD/Chest 1 View (Portable) IMPRESSION: Elevated right hemidiaphragm and minor basilar atelectasis or infiltrate Electronically Signed: Nacho Younger MD at 19:10 EDT ,
[2023-10-15] MEDS: 0.9% Normal Saline (1000mL) 1,000 ML 150 ML IV (18:50)
[2023-10-15 19:07] LABS: Bacteria 0 SEEN /hpf (None Seen); Mucous, Urine 0 SEEN /hpf (<or=2+); Red Blood Cells-Urine 0 SEEN /hpf (0-5); Squamous Epithelial Cells - UA 0 SEEN /hpf (5-10); White Blood Cells 0 SEEN /hpf (0-5)
[2023-10-15 19:08] LABS: Absolute Lymphocyte Count 0.88 X10^3/uL (0.83-4.51); Absolute Neutrophil Count 6.8 X10^3/uL (2.0-7.7); Basophil# 0.03 X10^3/uL; Basophil% 0.4 % (0-1); Eosinophil# 0.01 X10^3/uL; Eosinophils% 0.1 % (0-5); Hematocrit 41.6 % (37-47); Lymphocyte # 0.88 X10^3/ul (0.83-4.51); Lymphocyte % 10.8 % (19-41); Mean Corp Hgb Conc 33.7 g/dL (32-36); Mean Corpuscular Hgb 30.5 pg (27.0-32.0); Mean Corpuscular Volume 90.6 fL (81-99); Monocyte# 0.42 X10^3/uL; Monocyte% 5.2 % (0-10); NRBC Flagged by Analyzer 0 % (0-5); Neutrophil # 6.76 X10^3/uL (2.7-7.7); Neutrophil % 83.3 % (47-70); Platelet Count 162 K/mm3 (150-450); RBC Distribution Width CV 12.9 % (11.6-14.6); RBC Distribution Width SD 42.2 fl (35.1-43.9); Red Blood Count 4.59 M/mm3 (4.2-5.4); White Blood Count 8.1 K/mm3 (4.4-11.0)
[2023-10-15 19:08] LABS: Color, Urine Yellow (Yellow); Glucose, Dipstick Normal (Normal); Ketone-Dipstick Negative (Negative); Leukocyte Esterase-Dipstick Negative /ul (Negative); Nitrite-Dipstick Negative (Negative); Occult Blood-Urine Negative /ul (Negative); Protein-Dipstick Negative (Negative); Specific Gravity, Urine 1.005 (1.002-1.030); Urine Bilirubin Dipstick Negative (Negative); Urine Clarity Clear (Clear); Urine Urobilinogen Normal (Normal)
[2023-10-15 19:26] LABS: ALB/GLOB Ratio 0.9 RATIO (0.9-2.4); AST(SGOT) 56 U/L (15-37); Alanine Aminotransfer ALT/SGPT 62 U/L (13-56); Albumin, Serum 3.3 g/dL (3.2-5.0); Alkaline Phosphatase 167 U/L (45-117); Anion Gap 4 (5-15); BUN 12 mg/dL (7-18); BUN/Creat Ratio 13.2 RATIO (10-20); Calcium,Total 8.9 mg/dL (8.5-10.1); Chloride 105 mmol/L (98-107); Creatinine, Serum 0.91 mg/dL (0.55-1.02); EST Glomerular Filtration Rate 65 mL/min (>60); Est Glom Filt Rate - Afr Amer 79 mL/min (>60); Estimated Creatinine Clearance 55.19 ml/min; Globulin 3.8 g/dL (2.2-4.2); Glucose 122 mg/dL (74-106); Lipase 26 U/L (13-75); Potassium 3.6 mmol/L (3.5-5.1); Protein, Total 7.1 g/dL (6.4-8.2); Sodium Level 137 mmol/L (136-145)
[2023-10-15 19:52] LABS: Lactic Acid 1.2 mmol/L (0.4-1.9)
--- NOTE | 2023-10-15 20:00 | CT_ITS ---
STUDY: CT ABDOMEN AND PELVIS WITH CONTRAST REASON FOR EXAM: Female, 68 years old. ABDOMINAL PAIN HAD BILE DUCT STENT PLACED DIYA NOW HAVING FEVER RADIATION DOSAGE (If Supplied By Facility): CTDIvol = ( 14.15 ) mGy, DLP = ( 775.63 ) mGycm TECHNIQUE: Transaxial images were obtained from the dome of the diaphragm to the symphysis pubis without oral contrast. IV 100mL [id number]-[id number] was administered. Sagittal and coronal images were reconstructed. Individualized dose optimization techniques were used for this CT. COMPARISON: August 12, 2023 FINDINGS: The visualized lung bases are unremarkable. The visualized portions of the heart are within normal limits. There is elongation of right lobe of the liver consistent with normal variant. Tiny hypoattenuated density in the left lobe which is too small to characterize most likely cyst. Bile ducts are nondilated.. Gallbladder has been removed surgically and there is a biliary ductal stent noted. Normal spleen. Normal pancreas. Normal bilateral adrenal glands. Normal right kidney. Normal left kidney. Normal visualized stomach. Normal small intestine. Normal colon. The appendix is visualized and appears normal. Mild atherosclerotic changes of the aorta without evidence for aneurysm. Normal inferior vena cava. Normal retroperitoneum. There is a small fibroid noted within the uterine fundus. Incompletely distended mildly thick walled bladder likely of no significance... Small amount of free fluid in the cul-de-sac. Small left ovarian cyst measuring approximately 1.6 x 1.23 cm. Small subcentimeter inguinal nodes likely benign.. Normal osseous structures. CT/Abdomen/Pelvis W IV Cont ONLY IMPRESSION: Postop change status post cholecystectomy and biliary ductal stent placement. Small left ovarian cyst and mild fluid in the cul-de-sac of uncertain significance Small uterine fibroid. No evidence for small bowel obstruction or other acute abnormality Other findings as above Electronically Signed: Nacho Younger MD at 20:36 EDT ,
--- NOTE | 2023-10-15 22:57 | PCM.HP.STD ---
HPI - General General Date of Admission: 10/15/23 Date of Service: 10/15/23 Chief Complaint: Fever, chills, recent biliary stent placement. HPI Narrative The patient is a 68 y/o F w/ PMHx: Obesity, GERD, OA, choledocholithiasis status post recent ERCP with biliary stent placement status post previous cholecystectomy 09/02/23 with ongoing issues with epigastric discomfort following with Dr. Bagley gastroenterology who presents to the [facility] ED on 10/15/2023 with complaint of fever up to 104 with associated diaphoresis and chills as well as general fatigue and malaise on day of presentation with history of stent in the biliary duct placed per Dr. Bagley 2 days previously with some biopsies of the biliary duct also at that time with no nausea or emesis nor marked abdominal pain or changes to her bowel patterns but given the symptoms and recent intervention prompted ED evaluation. She notes her abdominal discomfort has significantly improved since her cholecystectomy and recent intervention. She notes she has normal bowel movements which are mildly constipated and unchanged per her. workup in the ED included Tmax 100, heart rate 79, BP 127/73, respiratory rate 16, 100% on room air, CBC with WBC 8.1, hemoglobin 14, platelet 162 without marked shift, CMP with glucose 122, AST/ALT 56/62, alk phos 167, lipase 26, lactic acid 1.2, unremarkable urinalysis, blood culture x 2 pending per ED, rapid SARS COVID/influenza/RSV PCR negative, chest x-ray with elevated right hemidiaphragm and minor basilar atelectasis, CT abdomen and pelvis with postoperative changes status postcholecystectomy and biliary ductal stent placement, small left ovarian cyst and mild fluid in the cul-de-sac of uncertain significance, small uterine fibroid, no evidence of any bowel obstruction or acute intra-abdominal finding. In the ED patient ministered maintenance IV fluids and IV zosyn. ED discussed case with Dr. Bagley Gastroenterology. [facility] Medical History Wears glasses Wears dentures Post-menopausal Arthritis Gastric reflux Non-smoker Leg cramps History of edema Constipation Home Medications ?Medication ?Instructions ?Recorded ?Last Taken ?Type NK 10/10/23 Unknown History Allergy/AdvReac Type Severity Reaction Status Date / Time No Known Allergies Allergy Verified 10/15/23 17:39 Family History Mother Hypertension Father No problems noted. Surgical History S/P ERCP S/P laparoscopic cholecystectomy Hx of vaginal surgery Social History household members: spouse Smoking Status: Never smoker alcohol intake: never substance use type: does not use Vital Signs Vital Signs Vital Signs: 10/15/23 17:37 10/15/23 17:48 10/15/23 17:50 Temperature 97.8 F 99.1 F Temperature Source Temporal Oral Pulse Rate 79 75 Respiratory Rate 16 18 Respiratory Effort Normal Non-Labored Respiratory Pattern Normal Blood Pressure 127/73 H 129/66 H Blood Pressure Mean 91 87 Pulse Ox 100 97 Oxygen Delivery Method Room Air Room Air 10/15/23 18:49 10/15/23 20:00 10/15/23 21:00 Temperature 99.5 F H 99.7 F H 98.7 F Temperature Source Oral Oral Temporal Pulse Rate 75 80 72 Respiratory Rate 18 21 H 21 H Respiratory Effort Respiratory Pattern Blood Pressure 127/68 H 144/68 H 121/65 H Blood Pressure Mean 87 93 83 Pulse Ox 93 96 94 Oxygen Delivery Method Room Air Room Air Room Air 10/15/23 22:19 10/15/23 22:53 Temperature 99.8 F H 100 F H Temperature Source Oral Oral Pulse Rate 82 86 Respiratory Rate 21 H 17 Respiratory Effort Respiratory Pattern Blood Pressure 122/64 H 128/68 H Blood Pressure Mean 83 88 Pulse Ox 95 94 Oxygen Delivery Method Room Air Room Air Weight Weight: 172 lb 3 oz Body Mass Index (BMI) 32.5 Physical Exam Narrative Physical Examination: General: Awake, alert, oriented x 3 and cooperative, laying in the ED bed, fatigued, denies any pain at this time. Skin: Mildly flushed color, normal turgor, no icterus, no cyanosis. HEENT: AT/NC, EOMI, PERRLA, dry MM, no carotid bruits or JVD noted. Lungs: Mildly diminished, greater bases, appropriate effort, no rales, ronchi or wheezing. Heart: Regular rate and rhythm; no gallop, rub audible. Abdomen: Soft, obese, NTTP, ND, mildly hyperactive BS, no appreciated HSM. Extremities: No cyanosis, clubbing, or edema. Neurological: Patient awake, alert, oriented as noted, cognitive function intact; pupils equally reactive to light and accommodation, cranial nerves grossly normal, moving all 4 extremities, no focal deficits, strength mildly globally creased. Psychiatric: Affect appears fatigued otherwise normal, no acute evidence of depressive or anxiety feelings. Results Lab / Micro Data 10/15/23 18:54 10/15/23 18:54 Labs: Laboratory Results - last 24 hr 10/15/23 18:54: WBC 8.1, RBC 4.59, Hgb 14.0, Hct 41.6, MCV 90.6, MCH 30.5, MCHC 33.7, RDW Std Deviation 42.2, RDW Coeff of Alicia 12.9, Plt Count 162, MPV 9.0, Immature Gran % (Auto) 0.200, Neut % (Auto) 83.3 H, Lymph % (Auto) 10.8 L, Bowman % (Auto) 5.2, Eos % (Auto) 0.1, Baso % (Auto) 0.4, Absolute Neuts (auto) 6.8, Absolute Lymphs (auto) 0.88, Nucleated RBC % 0, Sodium 137, Potassium 3.6, Chloride 105, Carbon Dioxide 28.0, Anion Gap 4 L, BUN 12, Creatinine 0.91, Estim Creat Clear Calc 55.19, Est GFR (MDRD) Af Amer 79, Est GFR (MDRD) Non-Af 65, BUN/Creatinine Ratio 13.2, Glucose 122 H, Lactic Acid 1.2, Calcium 8.9, Total Bilirubin 0.80, AST 56 H, ALT 62 H, Alkaline Phosphatase 167 H, Total Protein 7.1, Albumin 3.3, Globulin 3.8, Albumin/Globulin Ratio 0.9, Lipase 26 10/15/23 19:01: Urine Color Yellow, Urine Clarity Clear, Urine pH 7.0, Ur Specific Garrison 1.005, Urine Protein Negative, Urine Glucose (UA) Normal, Urine Ketones Negative, Urine Occult Blood Negative, Urine Nitrite Negative, Urine Bilirubin Negative, Urine Urobilinogen Normal, Ur Leukocyte Esterase Negative, Urine RBC 0 SEEN, Urine WBC 0 SEEN, Ur Squamous Epith Cells 0 SEEN, Urine Bacteria 0 SEEN, Urine Mucus 0 SEEN Micro: Microbiology 06/26/24 18:39 Mucosa - Nose SARS-CoV-2, Influenza & RSV (PCR) - Final Imaging Radiology Impression Chest X-Ray 10/15/23 18:18 IMPRESSION: Elevated right hemidiaphragm and minor basilar atelectasis or infiltrate Electronically Signed: Nacho Younger MD at 19:10 EDT , Abdomen/Pelvis CT 10/15/23 20:00 IMPRESSION: Postop change status post cholecystectomy and biliary ductal stent placement. Small left ovarian cyst and mild fluid in the cul-de-sac of uncertain significance Small uterine fibroid. No evidence for small bowel obstruction or other acute abnormality Other findings as above Electronically Signed: Nacho Younger MD at 20:36 EDT , Assessment & Plan Assessment/Plan (1) Fever and chills: PLAN: Plan The patient is a 68 y/o F w/ PMHx: Obesity, GERD, OA, choledocholithiasis status post recent ERCP with biliary stent placement status post previous cholecystectomy 09/02/23 with ongoing issues with epigastric discomfort following with Dr. Bagley gastroenterology who presents to the [facility] ED on 10/15/2023 with complaint of fever up to 104 with associated diaphoresis and chills as well as general fatigue and malaise on day of presentation with history of stent in the biliary duct placed per Dr. Bagley 2 days previously with some biopsies of the biliary duct also at that time with no nausea or emesis nor marked abdominal pain or changes to her bowel patterns but given the symptoms and recent intervention prompted ED evaluation. #1. Fever of unclear significance with mild transaminitis status post recent biliary stent, questionable transient bacteremia following recent intervention, low suspicion for any kind of cholangitis: To be cautious will admit to medical surgical floor, will maintain on IV fluids, will continue IV Zosyn initiated in the ED, blood culture x 2 pending per ED, will continue consultation with gastroenterology given recent stent intervention, will trend CBC and CMP, procalcitonin requested. #2. Obesity: Weight loss and lifestyle changes encouraged. #3. GERD: Will maintain on PPI. #4. DVT prophylaxis: Low risk, observation admission, encourage ambulation. Charges/Coding Visit Charges Inpatient E&M: 15887 Init Hosp L2
[2023-10-15] MEDS: Piperacil/Tazobactam 4.5 GM in 0.9% Normal Saline (100mL MB+) 100 ML IV (23:44)
[2023-10-16] VITALS (9 sets, daily range): BP systolic 110–132; BP diastolic 59–68; PULSE 67–81; RESP 16–18; TEMP 35.8–37.4; O2SAT 94–97; BMI 32.5
[2023-10-16 00:24] LABS: Procalcitonin 0.74 ng/mL (0.00-0.09)
[2023-10-16] MEDS: 0.9% Normal Saline (1000mL) 1,000 ML 125 ML IV ×2 (01:13→09:13)
[2023-10-16 05:21] LABS: Absolute Lymphocyte Count 0.78 X10^3/uL (0.83-4.51); Absolute Neutrophil Count 4.3 X10^3/uL (2.0-7.7); Basophil# 0.04 X10^3/uL; Basophil% 0.7 % (0-1); Eosinophil# 0.03 X10^3/uL; Eosinophils% 0.5 % (0-5); Hemoglobin 12.4 g/dL (12.0-15.0); Lymphocyte # 0.78 X10^3/ul (0.83-4.51); Mean Corp Hgb Conc 33.5 g/dL (32-36); Mean Corpuscular Hgb 30.4 pg (27.0-32.0); Mean Corpuscular Volume 90.7 fL (81-99); Mean Platelet Vol. 9.1 fl (6.2-12.0); Monocyte# 0.36 X10^3/uL; Monocyte% 6.5 % (0-10); NRBC Flagged by Analyzer 0 % (0-5); Neutrophil # 4.32 X10^3/uL (2.7-7.7); Neutrophil % 77.8 % (47-70); Platelet Count 141 K/mm3 (150-450); RBC Distribution Width CV 12.9 % (11.6-14.6); RBC Distribution Width SD 42.6 fl (35.1-43.9); Red Blood Count 4.08 M/mm3 (4.2-5.4); White Blood Count 5.6 K/mm3 (4.4-11.0)
[2023-10-16] MEDS: Piperacil/Tazobactam 3.375 GM in 0.9% Normal Saline (50mL MB+) 50 ML IV ×3 (05:39→21:36)
[2023-10-16 05:41] LABS: ALB/GLOB Ratio 0.8 RATIO (0.9-2.4); AST(SGOT) 69 U/L (15-37); Alanine Aminotransfer ALT/SGPT 70 U/L (13-56); Albumin, Serum 2.7 g/dL (3.2-5.0); Alkaline Phosphatase 141 U/L (45-117); Anion Gap 7 (5-15); BUN 9 mg/dL (7-18); BUN/Creat Ratio 12.6 RATIO (10-20); Calcium,Total 8.3 mg/dL (8.5-10.1); Chloride 109 mmol/L (98-107); Creatinine, Serum 0.72 mg/dL (0.55-1.02); EST Glomerular Filtration Rate 86 mL/min (>60); Est Glom Filt Rate - Afr Amer 104 mL/min (>60); Estimated Creatinine Clearance 62.82 ml/min; Globulin 3.3 g/dL (2.2-4.2); Glucose 129 mg/dL (74-106); Sodium Level 140 mmol/L (136-145)
--- NOTE | 2023-10-16 07:48 | PCM.PN.HOSP ---
Reason for Visit Reason for Visit: Diagnoses Fever, unspecified (10/15/23) Objective Data Objective Data Vital Signs: Vital Signs Temp Pulse Resp BP Pulse Ox O2 Del Method 98.4 F 68 18 110/60 95 Room Air 10/16/23 05:41 10/16/23 05:41 10/16/23 05:41 10/16/23 05:41 10/16/23 05:41 10/16/23 06:00 Oxygen Delivery Method Room Air Weight: 172 lb 6.424 oz Body Mass Index (BMI) 32.5 Intake & Output: Intake and Output for Last 24 Hours 10/14/23 10/15/23 10/16/23 23:59 23:59 23:59 Intake Total 1000 / 1000 500 / 500 Balance 1000 / 1000 500 / 500 Lab / Micro Data 10/16/23 05:01 10/16/23 05:01 Labs: Laboratory Results - last 24 hr 10/15/23 18:54: WBC 8.1, RBC 4.59, Hgb 14.0, Hct 41.6, MCV 90.6, MCH 30.5, MCHC 33.7, RDW Std Deviation 42.2, RDW Coeff of Alicia 12.9, Plt Count 162, MPV 9.0, Immature Gran % (Auto) 0.200, Neut % (Auto) 83.3 H, Lymph % (Auto) 10.8 L, [place] % (Auto) 5.2, Eos % (Auto) 0.1, Baso % (Auto) 0.4, Absolute Neuts (auto) 6.8, Absolute Lymphs (auto) 0.88, Nucleated RBC % 0, Sodium 137, Potassium 3.6, Chloride 105, Carbon Dioxide 28.0, Anion Gap 4 L, BUN 12, Creatinine 0.91, Estim Creat Clear Calc 55.19, Est GFR (MDRD) Af Amer 79, Est GFR (MDRD) Non-Af 65, BUN/Creatinine Ratio 13.2, Glucose 122 H, Lactic Acid 1.2, Calcium 8.9, Total Bilirubin 0.80, AST 56 H, ALT 62 H, Alkaline Phosphatase 167 H, Total Protein 7.1, Albumin 3.3, Globulin 3.8, Albumin/Globulin Ratio 0.9, Lipase 26 10/15/23 19:01: Urine Color Yellow, Urine Clarity Clear, Urine pH 7.0, Ur Specific [place] 1.005, Urine Protein Negative, Urine Glucose (UA) Normal, Urine Ketones Negative, Urine Occult Blood Negative, Urine Nitrite Negative, Urine Bilirubin Negative, Urine Urobilinogen Normal, Ur Leukocyte Esterase Negative, Urine RBC 0 SEEN, Urine WBC 0 SEEN, Ur Squamous Epith Cells 0 SEEN, Urine Bacteria 0 SEEN, Urine Mucus 0 SEEN 10/15/23 23:46: Procalcitonin 0.74 H 10/16/23 05:01: WBC 5.6, RBC 4.08 L, Hgb 12.4, Hct 37.0, MCV 90.7, MCH 30.4, MCHC 33.5, RDW Std Deviation 42.6, RDW Coeff of Alicia 12.9, Plt Count 141 L, MPV 9.1, Immature Gran % (Auto) 0.500, Neut % (Auto) 77.8 H, Lymph % (Auto) 14.0 L, [place] % (Auto) 6.5, Eos % (Auto) 0.5, Baso % (Auto) 0.7, Absolute Neuts (auto) 4.3, Absolute Lymphs (auto) 0.78 L, Nucleated RBC % 0, Sodium 140, Potassium 3.0 L, Chloride 109 H, Carbon Dioxide 24.0, Anion Gap 7, BUN 9, Creatinine 0.72, Estim Creat Clear Calc 62.82, Est GFR (MDRD) Af Amer 104, Est GFR (MDRD) Non-Af 86, BUN/Creatinine Ratio 12.6, Glucose 129 H, Calcium 8.3 L, Total Bilirubin 0.70, AST 69 H, ALT 70 H, Alkaline Phosphatase 141 H, Total Protein 6.0 L, Albumin 2.7 L, Globulin 3.3, Albumin/Globulin Ratio 0.8 L Micro: Microbiology 10/15/23 18:39 Mucosa - Nose SARS-CoV-2, Influenza & RSV (PCR) - Final Radiography Diagnostic Testing: Radiology Impression Chest X-Ray 10/15/23 18:18 IMPRESSION: Elevated right hemidiaphragm and minor basilar atelectasis or infiltrate Electronically Signed: Nacho Younger MD at 19:10 EDT , Abdomen/Pelvis CT 10/15/23 20:00 IMPRESSION: Postop change status post cholecystectomy and biliary ductal stent placement. Small left ovarian cyst and mild fluid in the cul-de-sac of uncertain significance Small uterine fibroid. No evidence for small bowel obstruction or other acute abnormality Other findings as above Electronically Signed: Nacho Younger MD at 20:36 EDT Reading Location ID and State: [facility] / [place] Tel , Service support , Physical Exam Narrative Seen and examined. Patient admitted with high-grade fever. Denies flulike symptoms, cough, nausea vomiting or abdominal pain. No acute burning micturition. Physical exam General: Alert, Oriented x3, Cooperative. Obesity grade 1 BMI 32.6 kg/m?. HEENT: Atraumatic, PERRLA, EOMI, Normocephalic Oral: Oral mucosa moist. No Gingival or Mucosal Lesions/ Ulcerations Neck: Supple, No JVD, Negative Carotid Bruits Chest wall/Lungs: Air entry diminished in bilateral lung bases. No crepitation/rhonchi Cardiovascular: Sinus rhythm, Normal S1, Normal S2, No M/G/R Abdomen: Lap cecy port scars healed. Bowel Sounds Present, Soft, Non Tender, Non-Distended. No ascites. : No dysuria. No renal angle tenderness. No suprapubic tenderness. Extremities: No edema, Capillary Refill Less than 3 Seconds Skin: No rashes, No breakdown Musculoskeletal: No Tenderness to Palpation of Joints or Extremities Neurological: Cranial nerves II-XII grossly intact, DTR 2+/4. No acute focal neurological deficit. Psych/Mental Status: Normal Affect, Appropriate. Assessment & Plan Assessment/Plan (1) Fever and chills: PLAN: Plan The patient is a 68 y/o F was admitted with fever, D104 Fahrenheit associate with chills and diaphoresis, malaise. Denies cough sore throat, vomiting or diarrhea. No significant abdominal pain. #1. Fever of unclear significance but suspected hepatobiliary origin with history of choledocholithiasis, biliary stricture: Patient had choledocholithiasis with temporary stenting and lap cecy with cholangiogram and dilated CBD on 09/02/2023. Subsequently on 10/13/2023 patient had temporary stent and replaced. Blood cultures x 2 ordered. Patient on IV Zosyn. GI is consulted. Procalcitonin elevated. ERCP 10/13/2023 impressions : - The entire main bile duct and entire biliary tree were dilated, secondary to a stricture. - The patient has had a cholecystectomy. - A biliary sphincterotomy was performed. - The biliary tree was swept and sludge and debris were found. - One stent was removed from the biliary tree. - Cells for cytology obtained in the middle third of the main bile duct and in the left main hepatic duct. - One temporary stent was placed into the common bile duct. #2. Obesity: Weight loss and lifestyle changes encouraged. #3. GERD: Will maintain on PPI. #4. DVT prophylaxis: Low risk, observation admission, encourage ambulation. Microbiology Past 72 Hours 10/15/23 18:39 Mucosa - Nose SARS-CoV-2, Influenza & RSV (PCR) - Final Laboratory Results 10/15/23 18:54: WBC 8.1, RBC 4.59, Hgb 14.0, Hct 41.6, MCV 90.6, MCH 30.5, MCHC 33.7, RDW Std Deviation 42.2, RDW Coeff of Alicia 12.9, Plt Count 162, MPV 9.0, Immature Gran % (Auto) 0.200, Neut % (Auto) 83.3 H, Lymph % (Auto) 10.8 L, [place] % (Auto) 5.2, Eos % (Auto) 0.1, Baso % (Auto) 0.4, Absolute Neuts (auto) 6.8, Absolute Lymphs (auto) 0.88, Nucleated RBC % 0, Sodium 137, Potassium 3.6, Chloride 105, Carbon Dioxide 28.0, Anion Gap 4 L, BUN 12, Creatinine 0.91, Estim Creat Clear Calc 55.19, Est GFR (MDRD) Af Amer 79, Est GFR (MDRD) Non-Af 65, BUN/Creatinine Ratio 13.2, Glucose 122 H, Lactic Acid 1.2, Calcium 8.9, Total Bilirubin 0.80, AST 56 H, ALT 62 H, Alkaline Phosphatase 167 H, Total Protein 7.1, Albumin 3.3, Globulin 3.8, Albumin/Globulin Ratio 0.9, Lipase 26 10/15/23 19:01: Urine Color Yellow, Urine Clarity Clear, Urine pH 7.0, Ur Specific [place] 1.005, Urine Protein Negative, Urine Glucose (UA) Normal, Urine Ketones Negative, Urine Occult Blood Negative, Urine Nitrite Negative, Urine Bilirubin Negative, Urine Urobilinogen Normal, Ur Leukocyte Esterase Negative, Urine RBC 0 SEEN, Urine WBC 0 SEEN, Ur Squamous Epith Cells 0 SEEN, Urine Bacteria 0 SEEN, Urine Mucus 0 SEEN 10/15/23 23:46: Procalcitonin 0.74 H 10/16/23 05:01: WBC 5.6, RBC 4.08 L, Hgb 12.4, Hct 37.0, MCV 90.7, MCH 30.4, MCHC 33.5, RDW Std Deviation 42.6, RDW Coeff of Alicia 12.9, Plt Count 141 L, MPV 9.1, Immature Gran % (Auto) 0.500, Neut % (Auto) 77.8 H, Lymph % (Auto) 14.0 L, [place] % (Auto) 6.5, Eos % (Auto) 0.5, Baso % (Auto) 0.7, Absolute Neuts (auto) 4.3, Absolute Lymphs (auto) 0.78 L, Nucleated RBC % 0, Sodium 140, Potassium 3.0 L, Chloride 109 H, Carbon Dioxide 24.0, Anion Gap 7, BUN 9, Creatinine 0.72, Estim Creat Clear Calc 62.82, Est GFR (MDRD) Af Amer 104, Est GFR (MDRD) Non-Af 86, BUN/Creatinine Ratio 12.6, Glucose 129 H, Calcium 8.3 L, Total Bilirubin 0.70, AST 69 H, ALT 70 H, Alkaline Phosphatase 141 H, Total Protein 6.0 L, Albumin 2.7 L, Globulin 3.3, Albumin/Globulin Ratio 0.8 L Charges/Coding Visit Charges Inpatient E&M: 17354 Subs Hosp L2
[2023-10-16] MEDS: Pantoprazole Sodium 20 MG Tablet PO ×2 (09:16→21:37)
[2023-10-16] MEDS: Potassium Chloride Oral Tablet 20 MEQ 40 MEQ PO ×2 (11:23→14:39)
--- NOTE | 2023-10-16 11:30 | CASEMGMT ---
RN CM Face to Face with patient for initial transition planning/care coordination assessment. RN CM introduced self and role at [facility]. Patient lying in bed, alert and oriented, family at bedside. Patient willing to participate in assessment and is able to answer all questions appropriately. Care providers, pharmacy, and demographics verified. PCP: Sammy Specialists: none Preferred Pharmacy: [facility] Retail Insurance: none Prescription Benefit: none Living Will/HPOA: none LNOK: Living Arrangements: Patient lives with in a 2 story home with bed and bath on first floor, 2 steps to enter the home. Patient states she is independent at home. Transportation: Driving service DME/HHC: Patient had cane and walker at home. No previous HHC or SNF. Patient wishes to discharge home, denies need for home health at this time. Patient states he has no further needs or concerns at this time. CM to follow for discharge planning needs that may arise. Disposition Plan: Patient to discharge home with family support and follow-up plans in place. Linh LOVE, RN, CM
[2023-10-17 04:11] LABS: Absolute Lymphocyte Count 1.07 X10^3/uL (0.83-4.51); Absolute Neutrophil Count 3.4 X10^3/uL (2.0-7.7); Basophil# 0.04 X10^3/uL; Basophil% 0.8 % (0-1); Eosinophil# 0.19 X10^3/uL; Eosinophils% 3.6 % (0-5); Hematocrit 36.7 % (37-47); Hemoglobin 12.3 g/dL (12.0-15.0); Lymphocyte # 1.07 X10^3/ul (0.83-4.51); Lymphocyte % 20.3 % (19-41); Mean Corp Hgb Conc 33.5 g/dL (32-36); Mean Corpuscular Hgb 30.4 pg (27.0-32.0); Mean Corpuscular Volume 90.6 fL (81-99); Mean Platelet Vol. 9.4 fl (6.2-12.0); Monocyte% 11.4 % (0-10); NRBC Flagged by Analyzer 0 % (0-5); Neutrophil # 3.35 X10^3/uL (2.7-7.7); Neutrophil % 63.5 % (47-70); Platelet Count 135 K/mm3 (150-450); RBC Distribution Width CV 12.9 % (11.6-14.6); RBC Distribution Width SD 43.2 fl (35.1-43.9); Red Blood Count 4.05 M/mm3 (4.2-5.4); White Blood Count 5.3 K/mm3 (4.4-11.0)
[2023-10-17 04:35] LABS: Anion Gap 5 (5-15); BUN 7 mg/dL (7-18); BUN/Creat Ratio 9.4 RATIO (10-20); Calcium,Total 8.6 mg/dL (8.5-10.1); Chloride 110 mmol/L (98-107); Creatinine, Serum 0.74 mg/dL (0.55-1.02); EST Glomerular Filtration Rate 82 mL/min (>60); Est Glom Filt Rate - Afr Amer 100 mL/min (>60); Estimated Creatinine Clearance 62.82 ml/min; Glucose 103 mg/dL (74-106); Potassium 3.9 mmol/L (3.5-5.1); Sodium Level 141 mmol/L (136-145)
[2023-10-17 05:22] VITALS: BMI 32.5
[2023-10-17] MEDS: Piperacil/Tazobactam 3.375 GM in 0.9% Normal Saline (50mL MB+) 50 ML IV (05:59)
[2023-10-17 06:00] VITALS: BP 114/65; PULSE 63; RESP 18; TEMP 35.8; TEMP 35.9; O2SAT 98
[2023-10-17 09:33] VITALS: BP 137/69; PULSE 62; RESP 16; TEMP 36; O2SAT 97
[2023-10-17] MEDS: Pantoprazole Sodium 20 MG Tablet PO (10:42)
--- NOTE | 2023-10-17 13:52 | DCINST_ITS ---
Discharge Instructions Diet Discharge Diet: No restrictions Activity Discharge Activity: Return to Normal Activity Weight Bearing Status: Weight bearing as tolerated Dressing / Incision Call your doctor if you observe: Fever of 101 or Higher, Coldness, Increased Pain, Numbness or Tingling, Change in Color, Inability to urinate, Inability to have a bowel movement, Using more than 1 pad per hour, Shortness of breath, Dizziness, Fainting spells, Swelling in the ankles, Chest pain, Prolonged hiccupping, Increased palpitations (irregular heartbeat) and Calf discomfort Follow Up Care When: IN 2 WEEKS Test Results: Test results from this visit will be discussed in further detail at your follow- up appointment, if applicable. Discharge Plan Admission Admit Date/Time: 10/16/23 14:06 Attending Provider: Dane Patel Primary Care Provider: Camron Christianson Consulting Providers: Mandi Rey Instructions Additional Instructions / Restrictions: [id number] Tylenol 500 mg every 6 hourly as needed for fever, temperature more than 102 Fahrenheit or mild pain. Discharge Orders/Prescriptions Prescriptions: New levofloxacin 500 mg tablet 500 mg PO DAILY 5 Days Qty: 5 0RF No Action NK Referrals / Follow Up: Camron Christianson PA-C [Primary Care Provider] - Evaristo Bagley DO [Med Staff - Active Staff] - Within 1 Month Disposition Disposition (needs filled in before D/C Order can be placed): Home, Self Care
--- NOTE | 2023-10-17 14:03 | PCM.DC.SUM ---
Providers Date of Admission: 10/16/23 Date of Discharge: 10/17/23 Primary Care Physician: Camron Christianson PA-C Consultations 10/16/23 18:12 Consult: Gastroenterology Routine Consulting Provider: [facility] Reason for Consult: readmitted after biliary stent EMERGENT Consult: No MD Notified: Yes Date Notified: 10/16/23 Time Notified: 18:12 Method of Notification: Verbal Reason For Visit: FUO Diagnosis Discharge Diagnosis (1) Fever and chills: Status: Acute Code(s): R50.9 - Fever, unspecified Plan The patient is a 68 y/o F was admitted with fever, D104 Fahrenheit associate with chills and diaphoresis, malaise. Denies cough sore throat, vomiting or diarrhea. No significant abdominal pain. #1. Fever of unclear significance due to E. coli bacteremia from recent ERCP with history of choledocholithiasis, biliary stricture: Patient had choledocholithiasis with temporary stenting and lap cecy with cholangiogram and dilated CBD on 09/02/2023. Subsequently on 10/13/2023 patient had temporary stent and replaced. Blood cultures x 2 ordered. Patient on IV Zosyn. GI is consulted. Procalcitonin elevated. ERCP 10/13/2023 impressions : - The entire main bile duct and entire biliary tree were dilated, secondary to a stricture. - The patient has had a cholecystectomy. - A biliary sphincterotomy was performed. - The biliary tree was swept and sludge and debris were found. - One stent was removed from the biliary tree. - Cells for cytology obtained in the middle third of the main bile duct and in the left main hepatic duct. - One temporary stent was placed into the common bile duct. 10/16: Discussed with the wellness director Dr. Beverly. He came and saw the patient. Overall it seems patient has translocation of gram-negative huma probably E. coli after ERCP with bacteremia. Discussed with ID. Jimenez with 5 days of Levaquin as empiric treatment. Patient did not have abdominal pain or fever last 36 hours. Follow-up in GI clinic in 1 to 2 months. #2. Obesity: Weight loss and lifestyle changes encouraged. #3. GERD: Will maintain on PPI. #4. DVT prophylaxis: Low risk, observation admission, encourage ambulation. Discharge medication reconciliation done. Discharge follow-up instructions completed. Discharge process discussed with the patient and all questions were answered to patient's satisfaction. Follow with PCP in 1 to 2 weeks Total time spent, exact 35 minutes on discharge meds reconciliation, examination, coordination of care with nurses and ancillary staff, review of imaging and blood test and discussion with the patient on follow-up instructions. Microbiology Past 72 Hours 10/15/23 18:39 Mucosa - Nose SARS-CoV-2, Influenza & RSV (PCR) - Final Laboratory Results 10/15/23 18:54: WBC 8.1, RBC 4.59, Hgb 14.0, Hct 41.6, MCV 90.6, MCH 30.5, MCHC 33.7, RDW Std Deviation 42.2, RDW Coeff of Alicia 12.9, Plt Count 162, MPV 9.0, Immature Gran % (Auto) 0.200, Neut % (Auto) 83.3 H, Lymph % (Auto) 10.8 L, [place] % (Auto) 5.2, Eos % (Auto) 0.1, Baso % (Auto) 0.4, Absolute Neuts (auto) 6.8, Absolute Lymphs (auto) 0.88, Nucleated RBC % 0, Sodium 137, Potassium 3.6, Chloride 105, Carbon Dioxide 28.0, Anion Gap 4 L, BUN 12, Creatinine 0.91, Estim Creat Clear Calc 55.19, Est GFR (MDRD) Af Amer 79, Est GFR (MDRD) Non-Af 65, BUN/Creatinine Ratio 13.2, Glucose 122 H, Lactic Acid 1.2, Calcium 8.9, Total Bilirubin 0.80, AST 56 H, ALT 62 H, Alkaline Phosphatase 167 H, Total Protein 7.1, Albumin 3.3, Globulin 3.8, Albumin/Globulin Ratio 0.9, Lipase 26 10/15/23 19:01: Urine Color Yellow, Urine Clarity Clear, Urine pH 7.0, Ur Specific [place] 1.005, Urine Protein Negative, Urine Glucose (UA) Normal, Urine Ketones Negative, Urine Occult Blood Negative, Urine Nitrite Negative, Urine Bilirubin Negative, Urine Urobilinogen Normal, Ur Leukocyte Esterase Negative, Urine RBC 0 SEEN, Urine WBC 0 SEEN, Ur Squamous Epith Cells 0 SEEN, Urine Bacteria 0 SEEN, Urine Mucus 0 SEEN 10/15/23 23:46: Procalcitonin 0.74 H 10/16/23 05:01: WBC 5.6, RBC 4.08 L, Hgb 12.4, Hct 37.0, MCV 90.7, MCH 30.4, MCHC 33.5, RDW Std Deviation 42.6, RDW Coeff of Alicia 12.9, Plt Count 141 L, MPV 9.1, Immature Gran % (Auto) 0.500, Neut % (Auto) 77.8 H, Lymph % (Auto) 14.0 L, [place] % (Auto) 6.5, Eos % (Auto) 0.5, Baso % (Auto) 0.7, Absolute Neuts (auto) 4.3, Absolute Lymphs (auto) 0.78 L, Nucleated RBC % 0, Sodium 140, Potassium 3.0 L, Chloride 109 H, Carbon Dioxide 24.0, Anion Gap 7, BUN 9, Creatinine 0.72, Estim Creat Clear Calc 62.82, Est GFR (MDRD) Af Amer 104, Est GFR (MDRD) Non-Af 86, BUN/Creatinine Ratio 12.6, Glucose 129 H, Calcium 8.3 L, Total Bilirubin 0.70, AST 69 H, ALT 70 H, Alkaline Phosphatase 141 H, Total Protein 6.0 L, Albumin 2.7 L, Globulin 3.3, Albumin/Globulin Ratio 0.8 L Medications at Discharge Home Medications levofloxacin 500 mg tablet 500 mg PO DAILY 5 days #5 tabs 10/17/23 pantoprazole 40 mg tablet,delayed release (Protonix) 40 mg PO DAILY #30 tabs 10/17/23 Physical Exam Narrative Seen and examined. No fever since admission. Denies flulike symptoms, cough, nausea vomiting or abdominal pain. No acute burning micturition. Physical exam General: Alert, Oriented x3, Cooperative. Obesity grade 1 BMI 32.6 kg/m?. HEENT: Atraumatic, PERRLA, EOMI, Normocephalic Oral: Oral mucosa moist. No Gingival or Mucosal Lesions/ Ulcerations Neck: Supple, No JVD, Negative Carotid Bruits Chest wall/Lungs: Air entry diminished in bilateral lung bases. No crepitation/rhonchi Cardiovascular: Sinus rhythm, Normal S1, Normal S2, No M/G/R Abdomen: Lap cecy port scars healed. Bowel Sounds Present, Soft, Non Tender, Non-Distended. No ascites. : No dysuria. No renal angle tenderness. No suprapubic tenderness. Extremities: No edema, Capillary Refill Less than 3 Seconds Skin: No rashes, No breakdown Musculoskeletal: No Tenderness to Palpation of Joints or Extremities Neurological: Cranial nerves II-XII grossly intact, DTR 2+/4. No acute focal neurological deficit. Psych/Mental Status: Normal Affect, Appropriate. Weight / BMI Weight Weight: 171 lb 15.369 oz Body Mass Index (BMI) 32.5 ABG / Lab / Microbiology Data 10/17/23 03:37 10/17/23 03:37 Laboratory: Laboratory Results - last 24 hr 10/17/23 03:37: WBC 5.3, RBC 4.05 L, Hgb 12.3, Hct 36.7 L, MCV 90.6, MCH 30.4, MCHC 33.5, RDW Std Deviation 43.2, RDW Coeff of Alicia 12.9, Plt Count 135 L, MPV 9.4, Immature Gran % (Auto) 0.400, Neut % (Auto) 63.5, Lymph % (Auto) 20.3, [place] % (Auto) 11.4 H, Eos % (Auto) 3.6, Baso % (Auto) 0.8, Absolute Neuts (auto) 3.4, Absolute Lymphs (auto) 1.07, Nucleated RBC % 0, Sodium 141, Potassium 3.9, Chloride 110 H, Carbon Dioxide 26.0, Anion Gap 5, BUN 7, Creatinine 0.74, Estim Creat Clear Calc 62.82, Est GFR (MDRD) Af Amer 100, Est GFR (MDRD) Non-Af 82, BUN/Creatinine Ratio 9.4 L, Glucose 103, Calcium 8.6 Microbiology: Microbiology 10/15/23 18:33 Blood Culture (Wb) - Anticubital Left Blood Culture - Preliminary Gram negative huma 10/15/23 18:39 Mucosa - Nose SARS-CoV-2, Influenza & RSV (PCR) - Final D/C Instructions Discharge Diet: No restrictions Weight Bearing Status: Weight bearing as tolerated Call your doctor if you observe: Fever of 101 or Higher, Coldness, Increased Pain, Numbness or Tingling, Change in Color, Inability to urinate, Inability to have a bowel movement, Using more than 1 pad per hour, Shortness of breath, Dizziness, Fainting spells, Swelling in the ankles, Chest pain, Prolonged hiccupping, Increased palpitations (irregular heartbeat) and Calf discomfort When: IN 2 WEEKS Meaningful Use Info Meaningful Use Meaningful Use Diagnoses (Choose all that apply): None applicable Ischemic Stroke Statin Dosing Therapy Reference: STATIN DOSE THERAPY REFERENCE: * Patients > 75 years receive moderate or high dose statin therapy. * Patients 75 years or YOUNGER should receive HIGH intensity statin dose unless contraindicated. You will be required to document reason for non-treatment if statin daily dose does not meet guidelines. HIGH DOSE STATIN THERAPY DAILY Atorvastatin > than or = to 40 mg Rosuvastatin > than or = to 20 mg Amlodipine + Atorvastatin > than or = to 2.5/40 mg Ezetimibe + Simvastatin 10/80 mg Simvastatin 80mg Discharge Plan Admission Admit Date/Time: 10/16/23 14:06 Attending Provider: Dane Patel Primary Care Provider: Camron Christianson Consulting Providers: Mandi Rey Instructions Additional Instructions / Restrictions: Qlro-uyo-hgojyof Tylenol 500 mg every 6 hourly as needed for fever, temperature more than 102 Fahrenheit or mild pain. Discharge Orders/Prescriptions Prescriptions: New levofloxacin 500 mg tablet 500 mg PO DAILY 5 Days Qty: 5 0RF pantoprazole [Protonix] 40 mg tablet,delayed release (DR/EC) 40 mg PO DAILY Qty: 30 1RF Referrals / Follow Up: Camron Christianson PA-C [Primary Care Provider] - Evaristo Bagley DO [Med Staff - Active Staff] - Within 1 Month Disposition Disposition (needs filled in before D/C Order can be placed): Home, Self Care Charges/Coding Visit Charges Inpatient E&M: 57662 Disch Hosp >30min
--- NOTE | 2023-10-17 14:23 | CASEMGMT ---
Patient has order for discharge. RN CM in to discuss needs at discharge, daughter at bedside. Patient denies needs or help at discharge. Patient had no further questions or concerns.
[2023-10-17 14:43] LABS: AST(SGOT) 79 U/L (15-37); Alanine Aminotransfer ALT/SGPT 101 U/L (13-56); Albumin, Serum 2.7 g/dL (3.2-5.0); Alkaline Phosphatase 207 U/L (45-117); Globulin 3.4 g/dL (2.2-4.2); Protein, Total 6.1 g/dL (6.4-8.2)
--- NOTE | 2023-10-17 17:08 | CON.PCM.GI_ITS ---
HPI Consult Data Date of Consult: 10/17/23 HPI Narrative Reason for Consultation: Fever of unknown origin HPI Narrative: HELENA BRYAN, is a 68 y/o F w/ PMHx: Obesity, GERD, OA, choledocholithiasis status post recent ERCP with biliary stent placement status post previous cholecystectomy 09/02/23 with ongoing issues with epigastric discomfort following with Dr. Bagley gastroenterology who presents to the [facility] ED on 10/15/2023 with complaint of fever up to 104 with associated diaphoresis and chills as well as general fatigue and malaise on day of presentation with history of stent in the biliary duct placed. 2 days previously with some biopsies of the biliary duct also at that time with no nausea or emesis nor marked abdominal pain or changes to her bowel patterns but given the symptoms and recent intervention prompted ED evaluation. She notes her abdominal discomfort has significantly improved since her cholecystectomy and recent intervention. She notes she has normal bowel movements which are mildly constipated and unchanged per her. workup in the ED included Tmax 100, heart rate 79, BP 127/73, respiratory rate 16, 100% on room air, CBC with WBC 8.1, hemoglobin 14, platelet 162 without marked shift, CMP with glucose 122, AST/ALT 56/62, alk phos 167, lipase 26, lactic acid 1.2, unremarkable urinalysis, blood culture x 2 pending per ED, rapid SARS COVID/influenza/RSV PCR negative, chest x-ray with elevated right hemidiaphragm and minor basilar atelectasis, CT abdomen and pelvis with postoperative changes status postcholecystectomy and biliary ductal stent placement, small left ovarian cyst and mild fluid in the cul-de-sac of uncertain significance, small uterine fibroid, no evidence of any bowel obstruction or acute intra-abdominal finding. In the ED patient ministered maintenance IV fluids and IV zosyn. [facility] Medical History Wears glasses Wears dentures Post-menopausal Arthritis Gastric reflux Non-smoker Leg cramps History of edema Constipation Home Medications ?Medication ?Instructions ?Recorded ?Last Taken ?Type levofloxacin 500 mg tablet 500 mg PO DAILY 5 days #5 tabs 10/17/23 Unknown Rx pantoprazole 40 mg tablet,delayed 40 mg PO DAILY #30 tabs 10/17/23 Unknown Rx release (Protonix) Allergy/AdvReac Type Severity Reaction Status Date / Time No Known Allergies Allergy Verified 10/15/23 17:39 Family History (Updated 10/15/23 @ 23:[address] Mandi Rey MD) Mother Hypertension Father No problems noted. Surgical History S/P ERCP S/P laparoscopic cholecystectomy Hx of vaginal surgery Social History household members: spouse Smoking Status: Never smoker alcohol intake: never substance use type: does not use ROS Review of Systems ROS Unobtainable: other Constitutional Constitutional: Denies fatigue, fever(s), poor appetite, weight gain or weight loss ENT HEENT: Denies mouth lesions Cardiovascular Cardiovascular: Denies abdominal bloating, abdominal edema or abdominal pain Respiratory/Chest Respiratory/Chest: Denies change in mental status, change in phlegm color, chest congestion or chest tightness Gastrointestinal Gastrointestinal: Denies belching, bloating, change in bowel habits, change in stool character, chewing difficulty, coffee ground emesis, constipation, cramping, diarrhea, dyspepsia, dysphagia, early satiety, excessive flatus, fecal incontinence, heartburn, hematemesis, hematochezia, hemorrhoids, loose stools, melena, nausea, odynophagia, rectal bleeding, tenesmus, vomiting or weight changes Genitourinary Genitourinary: Denies abdominal discomfort, burning urination or itching Musculoskeletal Musculoskeletal: Reports as per HPI; Denies muscle weakness or myalgias Integumentary Integumentary: Denies jaundice Neurologic Neurologic: Denies lack of coordination or weakness Psychiatric Psychiatric: Denies confusion, depression, memory loss, mood swings, paranoia or suicidal ideation Endocrine Endocrinology: Denies systems reviewed and no addt'l complaints, except as documented Hematologic/Lymphatic Hematologic/Lymphatic: Denies anemia, easy bleeding, easy bruising or lymphadenopathy Allergic/Immunologic Allergic/Immunologic: Denies systems reviewed and no addt'l complaints, except as documented Physical Exam Narrative Physical Examination: General: Awake, alert, oriented x 3 and cooperative, . Skin: Mildly flushed color, normal turgor, no icterus, no cyanosis. HEENT: AT/NC, EOMI, PERRLA, dry MM, no carotid bruits or JVD noted. Lungs: Mildly diminished, greater bases, appropriate effort, no rales, ronchi or wheezing. Heart: Regular rate and rhythm; no gallop, rub audible. Abdomen: Soft, obese, NTTP, ND, mildly hyperactive BS, no appreciated HSM. Extremities: No cyanosis, clubbing, or edema. Neurological: Patient awake, alert, oriented as noted, cognitive function intact; pupils equally reactive to light and accommodation, cranial nerves grossly normal, moving all 4 extremities, no focal deficits, strength mildly globally creased. Psychiatric: Affect appears fatigued otherwise normal, no acute evidence of depressive or anxiety feelings. Lab / Micro Data 10/17/23 03:37 10/17/23 03:37 Labs: Laboratory Results - last 24 hr 10/17/23 03:37: WBC 5.3, RBC 4.05 L, Hgb 12.3, Hct 36.7 L, MCV 90.6, MCH 30.4, MCHC 33.5, RDW Std Deviation 43.2, RDW Coeff of Alicia 12.9, Plt Count 135 L, MPV 9.4, Immature Gran % (Auto) 0.400, Neut % (Auto) 63.5, Lymph % (Auto) 20.3, [place] % (Auto) 11.4 H, Eos % (Auto) 3.6, Baso % (Auto) 0.8, Absolute Neuts (auto) 3.4, Absolute Lymphs (auto) 1.07, Nucleated RBC % 0, Sodium 141, Potassium 3.9, C hloride 110 H, Carbon Dioxide 26.0, Anion Gap 5, BUN 7, Creatinine 0.74, Estim Creat Clear Calc 62.82, Est GFR (MDRD) Af Amer 100, Est GFR (MDRD) Non-Af 82, B UN/Creatinine Ratio 9.4 L, Glucose 103, Calcium 8.6, Total Bilirubin 0.50, Direct Bilirubin 0.20, AST 79 H, ALT 101 H, Alkaline Phosphatase 207 H, Total Protein 6.1 L, Albumin 2.7 L, Globulin 3.4 Micro: Microbiology 10/15/23 18:33 Blood Culture (Wb) - Anticubital Left Blood Culture - Preliminary Gram negative huma Assessment & Plan Assessment/Plan (1) Fever and chills: PLAN: Plan The patient is a 68 y/o F w/ PMHx: Obesity, GERD, OA, choledocholithiasis status post recent ERCP with biliary stent placement status post previous cholecystectomy 09/02/23 with ongoing issues with epigastric discomfort who presents to the [facility] ED on 10/15/2023 with complaint of fever up to 104 with history of stent in the biliary duct symptoms and recent intervention prompted ED evaluation. Fever of unclear significance with mild transaminitis status post recent biliary stent, questionable transient bacteremia following recent intervention, low suspicion for any kind of cholangitis: Agree with admitting to medical surgical floor, will maintain on IV fluids, IV Zosyn initiated, blood culture x 2 positive for gram-negative rods. Recommend discharge to home with oral antibiotics to complete 14-day course. Charges/Coding Visit Charges Inpatient E&M: 90875 Init Hosp L3
== END 2023-10-17 16:00 | disposition home or self-care (01) | DRG 871 ==
LOC: ED 23:00 → PCU 23:13
PROVIDERS: Admitting Provider Family Medicine; Emergency Provider Emergency Medicine; PCP Physician Assistant; Visit Provider Internal Medicine
DX: R78.81 Bacteremia (principal); K83.1 Obstruction of bile duct; K21.9 Gastro-esophageal reflux disease without esophagitis; K82.8 Other specified diseases of gallbladder; E66.9 Obesity, unspecified; Z86.16 Personal history of COVID-19; B96.20 Unspecified Escherichia coli [E. coli] as the cause of diseases classified elsewhere; Z90.49 Acquired absence of other specified parts of digestive tract; Z68.32 Body mass index [BMI] 32.0-32.9, adult
CPT/HCPCS: 36415; 71045; 74177; 80048; 80053; 80076; 81001; 83605; 83690; 84145; 85025; 87040; 87077; 87186; 87631; 94668; 99285; J7030; J7040; Q9967; A4216

== ENCOUNTER → 2023-11-17 | Outpatient (CLI) | payer SELFPAY ==
[2023-11-17 16:02] LABS: Absolute Lymphocyte Count 2.04 X10^3/uL (0.83-4.51); Absolute Neutrophil Count 2.9 X10^3/uL (2.0-7.7); Basophil# 0.06 X10^3/uL; Basophil% 1.1 % (0-1); Eosinophil# 0.18 X10^3/uL; Eosinophils% 3.2 % (0-5); Hematocrit 38.2 % (37-47); Hemoglobin 12.8 g/dL (12.0-15.0); Lymphocyte # 2.04 X10^3/ul (0.83-4.51); Lymphocyte % 35.8 % (19-41); Mean Corp Hgb Conc 33.5 g/dL (32-36); Mean Corpuscular Hgb 30.2 pg (27.0-32.0); Mean Corpuscular Volume 90.1 fL (81-99); Mean Platelet Vol. 9.4 fl (6.2-12.0); Monocyte# 0.47 X10^3/uL; Monocyte% 8.2 % (0-10); NRBC Flagged by Analyzer 0 % (0-5); Neutrophil # 2.92 X10^3/uL (2.7-7.7); Neutrophil % 51.2 % (47-70); Platelet Count 214 K/mm3 (150-450); RBC Distribution Width CV 13.2 % (11.6-14.6); RBC Distribution Width SD 43.1 fl (35.1-43.9); Red Blood Count 4.24 M/mm3 (4.2-5.4); White Blood Count 5.7 K/mm3 (4.4-11.0)
[2023-11-17 16:31] LABS: AST(SGOT) 30 U/L (15-37); Alanine Aminotransfer ALT/SGPT 30 U/L (13-56); Albumin, Serum 3.3 g/dL (3.2-5.0); Alkaline Phosphatase 134 U/L (45-117); Anion Gap 2 (5-15); BUN 12 mg/dL (7-18); BUN/Creat Ratio 16.2 RATIO (10-20); Calcium,Total 8.7 mg/dL (8.5-10.1); Chloride 112 mmol/L (98-107); Creatinine, Serum 0.74 mg/dL (0.55-1.02); EST Glomerular Filtration Rate 82 mL/min (>60); Est Glom Filt Rate - Afr Amer 100 mL/min (>60); Globulin 3.3 g/dL (2.2-4.2); Glucose 103 mg/dL (74-106); Potassium 4.1 mmol/L (3.5-5.1); Protein, Total 6.6 g/dL (6.4-8.2); Sodium Level 143 mmol/L (136-145)
== END | disposition home or self-care (01) ==
PROVIDERS: PCP Physician Assistant; Referring Provider Student in an Organized Health Care Education/Training Program; Visit Provider Student in an Organized Health Care Education/Training Program
DX: R74.8 Abnormal levels of other serum enzymes (principal); R53.83 Other fatigue
CPT/HCPCS: 36415; 80053; 85025

== ENCOUNTER 2024-01-13 10:50 | Day surgery (SDC) | payer SELFPAY, OTHER ==
[2024-01-13] VITALS (9 sets, daily range): BP systolic 138–150; BP diastolic 71–79; PULSE 53–69; RESP 16–18; TEMP 36.1–36.3; O2SAT 98–100; BMI 32.3
--- NOTE | 2024-01-13 | FLU_PTH ---
PATIENT: HELENA BRYAN LOC: [facility] U#:[id number] AGE/SX: 68/F ROOM: RE01/13/[address]: Dr. Evaristo Bagley DO : 1955 BED: DIS: 01/13/2024 SPEC #: [id number] RECD: 01/13/24 14:10 STATUS: GUILLERMO QUAN #: [id number] FRANCINE: 01/13/24 00:[address]: Evaristo Bagley DEPT: CYTOLOGY RECD BY: Ben Jiménez ENTERED: 01/14/24 08:00 SP TYPE: Fluid OTHR DR: Camron Christianson PA-C Tissues: Biliary tract, NOS Procedures: Special Stain Group II Surgery Specimen Level IV Cytospin Fluid HEADER OPERATION: Stent pull, balloon sweep PRE-OP DIAGNOSIS: Cholelithasis TISSUE SUBMITTED: Biliary stent for cytology DIAGNOSIS CYTOLOGY Biliary stent fluid for cytology (cytospin and cellblock): Negative for malignant cells. See comment. 01/15/2024 COMMENT Clinical correlation and appropriate follow up are necessary. CYTOLOGY STUDY Slides are reviewed. CYTOLOGY GROSS Received is 1 stent with 0.2 ml of yellow thick material labeled with the patient's name and and designated per the requisition as Biliary stent. Submitted for cytology preparation including cell block. Mr 01/14/2024 TC:5 CPT: 36683,58373
--- NOTE | 2024-01-13 11:03 | EKG12_ITS ---
Test Reason : preop Blood Pressure : / mmHG Vent. Rate : 057 BPM Atrial Rate : 057 BPM P-R Int : 164 ms QRS Dur : 076 ms QT Int : 422 ms P-R-T Axes : 053 011 012 degrees QTc Int : 410 ms Sinus bradycardia Otherwise normal ECG When compared with ECG of 13-OCT-2023 11:45, No significant change was found Confirmed by UDAY KERR, NORMA ([id number]), advertising editor FILIPPO BILL ([id number]) on 01/22/2024 1:08:54 PM Referred By: Camron Christianson Confirmed By:NORMA FRYE MD
[2024-01-13] MEDS: Lactated Ringers 1,000 ML 15 ML IV (11:15)
--- NOTE | 2024-01-13 11:44 | PRE.ANES_ITS ---
ASA Classification* ASA Classification ASA Classification: 2 Assessment & Plan Anesthesia* Anesthesia Assessment Anesthesia Assessment: Discussed sedation and/or anesthesia options, risks, benefits, and alternatives with patient/parents/legal guardian/POA. Questions invited. The patient/parents/legal guardian/POA seems to understand and agrees to proceed with anesthesia plan. Reviewed the physical assessment, medical history, allergy history and patient home medications list prior to surgery/procedure/anesthetic and documented any changes. Performed airway and anesthesia risk assessments. Anesthesia Type Anesthesia Type: MAC History Source History Obtained from:: Patient and Chart Anesthesia Focused Assessment* Temperature: 97.3 F Pulse Rate: 58 Blood Pressure: 146/72 Respiratory Rate: 18 Pulse Ox: 100 Oxygen Delivery Method: Room Air Airway Assessment Mouth opens: >3 cm Mallampati Score: III Teeth Condition: Dentures (Patient has top dentures. Dentures are out.) and Missing (Multiple missing teeth on the bottom. Rest of the teeth are tight.) Neck Range of motion (ROM): Limited ROM (Somewhat decreased extension) Pertinent Findings EKG Pertinent Findings:: January 13, 2024. Sinus bradycardia at 57 bpm. 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 When Was Last Pacemaker Check QUESTION #4 FULL TEXT: You/Your Family Experience fever (hyperthermia) with Anesthesia Last Oral Intake Last Oral intake: Last Oral Intake NPO since 00:00 01/13/24 11:16 Meds taken in AM with sips of No 01/13/24 11:16 water? Meds patient instructed to take am of surgery PONV PONV - surveying teacher: PONV - surveying teacher Female Yes 01/09/24 14:34 HX of Motion Sickness No 01/09/24 14:34 HX of N/V After Surgery No 01/09/24 14:34 Non-Smoker Yes 01/09/24 14:34 Duration of Surgery greater No 01/09/24 14:34 than 60 minutes Number of Risk Factors 2 01/09/24 14:34 PONV Score Moderate Risk 01/09/24 14:34 Height & Weight Height & Weight: Anesthesia: Height & Weight Height 5 ft 2 in 01/13/24 11:16 Weight: 80.286 kg 01/13/24 11:16 Body Mass Index (BMI) 32.3 01/13/24 11:16 Respiratory Assessment Respiratory Assessment - surveying teacher: Respiratory Tract Infection Hx - surveying teacher Hx Respiratory Tract Infection No 01/09/24 14:34 STOP Sleep Apnea STOP Sleep Apnea - surveying teacher: STOP Sleep Apnea - surveying teacher Hx Hypertension No 01/09/24 14:34 Hx Sleep Apnea No 01/09/24 14:34 CPAP BIPAP Do you snore loudly (louder No 01/09/24 14:34 than talking or can be heard Do you often feel tired/ No 01/09/24 14:34 fatigued/ sleepy during daytime? Has anyone observed you stop No 01/09/24 14:34 breathing during sleep? STOP Results Negative 01/09/24 14:34 QUESTION #5 FULL TEXT : Do you snore loudly (louder than talking or can be heard through closed doors)? 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 Specify any problems Hx of Preganancy in last 3 No 01/09/24 14:34 Months Nurse Filling Out Transfusion VCHRISTIN 01/09/24 14:34 & Questions: Date: 01/09/24 01/09/24 14:34 Time: 14:35 01/09/24 14:34 Patient unable to answer at this time (ie. confused, unrespo /Reproduction History /Reproductive History - surveying teacher: /Reproductive Hx- surveying teacher Hx Now No 01/09/24 14:34 Gestational Age (in weeks): EDC: Hx Hx Para Hx Section SAB No 01/09/24 14:34 Active Medications Active Medications: Current Medications Generic Name Dose Route Start Last Admin Trade Name Mattiq PRN Reason Stop Dose Admin Lactated Ringer's 1,000 mls @ 15 mls/hr 01/13/24 11:00 01/13/24 11:15 IV 15 mls/hr .Q48H RICKI Administration PFSH Medical History (Updated 11/17/23 @ 14:33 by MARITZA Gardiner) Elevated liver enzymes Wears glasses Wears dentures Post-menopausal Arthritis Gastric reflux Non-smoker Leg cramps History of edema Constipation Home Medications ?Medication ?Instructions ?Recorded ?Last Taken ?Type NK 01/09/24 Unknown History Allergy/AdvReac Type Severity Reaction Status Date / Time No Known Allergies Allergy Verified 01/13/24 11:07 Family History (Updated 10/15/23 @ 23:[address] Mandi Rey MD) Mother Hypertension Father No problems noted. Surgical History (Updated 01/09/24 @ 14:34 by Anita Hugo) S/P ERCP S/P laparoscopic cholecystectomy Hx of vaginal surgery Social History household members: spouse Smoking Status: Never smoker alcohol intake: never substance use type: does not use Review of Systems (Anesthesia) ROS Narrative System reviewed and no additional complaints, except as documented.
--- NOTE | 2024-01-13 12:45 | RAD_ITS ---
STUDY: ERCP. REASON FOR EXAM: Female, 68 years old. PAIN FLUOROSCOPY TIME (if supplied): ( 1 minute and 44 seconds ) minutes/seconds. 21.64 mGy. 8 images were submitted. TECHNIQUE: ERCP was performed by the candy dipper. Imaging was provided. COMPARISON: None. FINDINGS: Contrast was injected. Mild degree of dilated common bile duct. The patient is status post cholecystectomy. RAD/ERCP Biliary/Pancreas IMPRESSION: Mildly dilated common bile duct. No intraluminal filling defect is seen. Status post cholecystectomy. Electronically Signed: Torrey Silverman MD at 8:44 EDT ,
--- NOTE | 2024-01-13 13:11 | OP.ERCP_ITS ---
Patient Name: Lindsay Foster Procedure Date: 01/13/2024 12:05 PM Date of : 1955 Age: 68 Procedure: ERCP Indications: Bile duct stone(s), Stent removal Providers: Evaristo Bagley DO Referring MD: Camron Christianson Do Medicines: Monitored Anesthesia Care Patient Profile: This is a 68 year old female. Refer to note in patient chart for documentation of history and physical. Patient has symptoms. She is status post laparoscopic cholecystectomy. Complications: No immediate complications. Procedure: Pre-Anesthesia Assessment: - Prior to the procedure, a History and Physical was performed, and patient medications and allergies were reviewed. The patient is competent. The risks and benefits of the procedure and the sedation options and risks were discussed with the patient. All questions were answered and informed consent was obtained. Patient identification and proposed procedure were verified by the physician. Mental Status Examination: normal. Prophylactic Antibiotics: The patient does not require prophylactic antibiotics. Prior Anticoagulants: The patient has taken no anticoagulant or antiplatelet agents. After reviewing the risks and benefits, the patient was deemed in satisfactory condition to undergo the procedure. The anesthesia plan was to use monitored anesthesia care (MAC). Immediately prior to administration of medications, the patient was re-assessed for adequacy to receive sedatives. The heart rate, respiratory rate, oxygen saturations, blood pressure, adequacy of pulmonary ventilation, and response to care were monitored throughout the procedure. The physical status of the patient was re-assessed after the procedure. After obtaining informed consent, the scope was passed under direct vision. Throughout the procedure, the patient's blood pressure, pulse, and oxygen saturations were monitored continuously. The Duodenoscope was introduced through the mouth, and advanced to the duodenum and used to inject contrast into the bile duct. The ERCP was accomplished without difficulty. The patient tolerated the procedure well. Scope In: 12:50:42 PM Scope Out: 12:59:30 PM Total Procedure Duration Time 0 hours 8 minutes 48 seconds Findings: The sweater designer film was normal. The esophagus was successfully intubated under direct vision. The scope was advanced to a normal major papilla in the descending duodenum without detailed examination of the pharynx, larynx and associated structures, and upper GI tract. The upper GI tract was grossly normal. A long 0.025 inch Jagwire was passed into the biliary tree. The short-nosed traction sphincterotome was passed over the guidewire and the bile duct was then deeply cannulated. Contrast was injected. I personally interpreted the bile duct images. There was brisk flow of contrast through the ducts. Image quality was adequate. Contrast extended to the entire biliary tree. Opacification of the entire opacified area, main bile duct and entire biliary tree was successful. The maximum diameter of the ducts was 10 mm. The lower third of the main bile duct contained two stones, the largest of which was 6 mm in diameter. The entire biliary tree was diffusely dilated, with a stone causing an obstruction. The largest diameter was 10 mm. A cholecystectomy had been performed. A 5 mm biliary sphincterotomy was made with a traction (standard) sphincterotome using ERBE electrocautery. There was no post-sphincterotomy bleeding. The biliary tree was swept with a 12 mm balloon starting at the bifurcation. Sludge was swept from the duct. All stones were removed. One stent was removed from the biliary tree using a snare and sent for cytology. The stent was found to be partially occluded via the water column test. Impression: - The entire biliary tree was dilated, with a stone causing an obstruction. - The patient has had a cholecystectomy. - Choledocholithiasis was found. Complete removal was accomplished by biliary sphincterotomy and balloon extraction. - A biliary sphincterotomy was performed. - The biliary tree was swept. - One stent was removed from the biliary tree. Procedure Code(s): --- Professional --- 63499, Endoscopic retrograde cholangiopancreatography (ERCP); with removal of foreign body(s) or stent(s) from biliary/pancreatic duct(s) 59738, Endoscopic retrograde cholangiopancreatography (ERCP); with removal of calculi/debris from biliary/pancreatic duct(s) 40142, Endoscopic retrograde cholangiopancreatography (ERCP); with sphincterotomy/papillotomy 67816, 26, Endoscopic catheterization of the biliary ductal system, radiological supervision and interpretation CPT copyright 2021 [employer] [place] [employer]. All rights reserved. The codes documented in this report are preliminary and upon medical coder review may be revised to meet current compliance requirements. Evaristo Bagley DO 01/13/2024 1:10:15 PM This report has been signed electronically. Number of Addenda: 0 Note Initiated On: 01/13/2024 12:05 PM
--- NOTE | 2024-01-13 13:11 | OP.CCLET_ITS ---
01/13/2024 Camron Christianson Do Re : ERCP procedure for Lindsay Foster Dear Sammy This procedure was performed on Saturday, January 13, 2024. My impressions and recommendations are as follows: Impressions : - The entire biliary tree was dilated, with a stone causing an obstruction. - The patient has had a cholecystectomy. - Choledocholithiasis was found. Complete removal was accomplished by biliary sphincterotomy and balloon extraction. - A biliary sphincterotomy was performed. - The biliary tree was swept. - One stent was removed from the biliary tree. Recommendations : My findings are described in the full procedure note, which is enclosed. If I can be of further assistance, please feel free to contact me at . Sincerely, Evaristo Bagley, 01/13/2024 1:10:15 PM This report has been signed electronically.
--- NOTE | 2024-01-13 13:11 | HP.PCM_ITS ---
History and Physical Date of Admission: 01/13/24 Chief Complaint: gallbladder Details: HELENA BRYAN, is a 68 F who presents to the office today for f/u appointment after hospitalization in September. Patient had cholecystectomy with ERCP on 09.02.23. She then had a stent placed in the CBD on 10.13.23 with biopsy for on going abdominal pain. Two days later 10.15.23 She presented to the ED with fever of 104, fatigue and chills. She had elevated liver enzymes at this time. She was admitted and started on Zosyn for suspected transient bacteremia. OV today 11/17/23 she has been doing well since her hospital stay. She denies having abdominal pain, heartburn, diarrhea, n/v or constipation. She is feeling fatigued but this has been progressively getting better. CBD biopsy 10.13.23 negative for malignant cells ROS Const Constitutional: Positive for weight change; No fatigue or fever(s) ENT ENT: No difficulty swallowing Gastro GI: No abdominal pain, belching, bloating, change in bowel habits, change in stool character, coffee ground emesis, constipation, cramping, diarrhea, heartburn, difficulty swallowing, feeling full early, excessive flatus, incontinent of stools, Vomiting blood/hematemesis, Blood in stool, loose stools, Black,tarry stools, nausea/dyspepsia, pain with swallowing, vomiting or other Musc Musculoskeletal: No joint pain Skin Skin: No yellowing of the eye or itchy eyes Psych Psychiatric: No anxiety and No depression Endo Endocrine: Positive for weight change; No fatigue Aller/Imm Allergy/Immunologic: No itchy eyes Josafat/Lymp Hematologic/Lymphatic: No easy bleeding or easy bruising Exam Const General: cooperative and comfortable Nutritional Appearance: average body habitus and well nourished [facility] Head: normal to inspection Ears: hearing grossly normal bilaterally Nose: external nose normal Face and sinus: normal facial exam Mouth: oral mucosae normal Throat: posterior oropharynx normal Eyes General: appearance normal, both eyes and all related structures Neck Neck: normal visual inspection Chest Chest palpation & inspection: normal inspection of the chest and normal palpation of entire chest wall Resp Effort & Inspection: normal respiratory effort Auscultation: Bilateral: Clear to Auscultation Cardio Palpation: normal PMI Rate: regular rate Rhythm: regular rhythm GI Inspection: normal to inspection Auscultation: normal bowel sounds Percussion: normal to percussion Palpation: no hepatosplenomegaly Skin General: no rashes or lesions noted Neuro General: patient alert Extrem General: normal to inspection Psych Affect: normal affect Assessment and Plan Assessment and Plan (1) Elevated liver enzymes: Status: Resolved Plan: Patient is here today for hospital f/u after transient bacteremia and elevated liver enzymes following ERCP with stent placement -She has been doing well and not having any GI related symptoms -Will schedule patient for CBD stent removal -Order CMP to monitor LFTs and CBC Orders: Orders CBC W/Diff, Automated Today R53.83 - Other fatigue Comprehensive Metabolic Profil Today R74.8 - Abnormal levels of other serum enzymes I have examined the patient and the H&P has been reviewed. There are no clinical changes since date of exam.
--- NOTE | 2024-01-13 13:20 | PCM.POST.ANE ---
Anesthesia: Postop Eval I Current Vital Signs Temperature: 97 F Pulse Rate: 67 Blood Pressure: 140/79 Respiratory Rate: 16 Pulse Ox: 98 Oxygen Delivery Method: Room Air Assessment Airway patent: Yes Spontaneous unlabored respirations: Yes Mental status: Awake and Calm nausea: No Vomiting: No Anesthesia Complication: No Fluid Hydration Crystalloid volume administer (ml): 800 Total IV fluid infused: 800 Progress Note Anesthesia document: Postop Eval 1 completed: Yes
--- NOTE | 2024-01-13 14:37 | PCM.POSTANE2 ---
Anesthesia Postop Eval I Sum Postop Eval Completion status Anesthesia document: Postop Eval 1 completed: Yes Anesthesia Postop Eval I Summary Anesthesia Postop Eval I Summary: Anesthesia Postop Eval I: Assessment Summary Airway patent Yes 01/13/24 13:21 [email or web address] Spontaneous unlabored Yes 01/13/24 13:21 [email or web address] respirations Mental status Awake,Calm 01/13/24 13:21 [email or web address] nausea No 01/13/24 13:21 [email or web address] Vomiting No 01/13/24 13:21 [email or web address] Anesthesia Postop Eval I: Fluid Summary Crystalloid volume administer 800 01/13/24 13:21 [email or web address] (ml) Colloids volume administered ( ml) Blood Product volume administered (ml) Total IV fluid infused 800 01/13/24 13:21 [email or web address] Anesthesia Postop Eval I: Summary Notes Anesthesia Complication No 01/13/24 13:21 [email or web address] Anesthesia Complication Comment: Post-operative progress note Anesthesia: Postop Eval II Evaluation Mental status: Awake and Calm Pain Level: 0 nausea: No Vomiting: No Complications Anesthesia Complication: No
== END 2024-01-13 14:54 | disposition home or self-care (01) ==
LOC: EN 10:53 → AC 10:54
PROVIDERS: PCP Physician Assistant; Referring Provider Physician Assistant; Visit Provider Internal Medicine Gastroenterology
PROC: (CPT 43260; principal; 2024-01-13 11:40)
DX: K80.51 Calculus of bile duct without cholangitis or cholecystitis with obstruction (principal); Z90.49 Acquired absence of other specified parts of digestive tract
CPT/HCPCS: 43264; 43275; 43262; 74330; 76000; 88108; 88305; 88313; 93005; J7120; J2405

== ENCOUNTER 2024-01-14 23:12 | Observation (INO) | payer SELFPAY ==
[2024-01-14 23:13] VITALS: BP 110/67; PULSE 84; RESP 16; TEMP 37.3; O2SAT 96; BMI 31.4
[2024-01-14 23:16] VITALS: BP 110/61; PULSE 75; RESP 16; TEMP 37.2; O2SAT 93
[2024-01-14] MEDS: 0.9% Normal Saline (1000mL) 1,000 ML 999 ML IV (23:42)
[2024-01-14] MEDS: Piperacil/Tazobactam 3.375 GM in 0.9% Normal Saline (50mL MB+) 50 ML IV (23:44)
[2024-01-14 23:50] LABS: Absolute Lymphocyte Count 0.55 X10^3/uL (0.83-4.51); Absolute Neutrophil Count 6.3 X10^3/uL (2.0-7.7); Basophil# 0.03 X10^3/uL; Basophil% 0.4 % (0-1); Eosinophil# 0.01 X10^3/uL; Eosinophils% 0.1 % (0-5); Hematocrit 38.8 % (37-47); Hemoglobin 12.9 g/dL (12.0-15.0); Lymphocyte # 0.55 X10^3/ul (0.83-4.51); Lymphocyte % 7.5 % (19-41); Mean Corp Hgb Conc 33.2 g/dL (32-36); Mean Corpuscular Hgb 29.9 pg (27.0-32.0); Mean Corpuscular Volume 89.8 fL (81-99); Mean Platelet Vol. 8.7 fl (6.2-12.0); Monocyte# 0.37 X10^3/uL; Monocyte% 5.1 % (0-10); NRBC Flagged by Analyzer 0 % (0-5); Neutrophil # 6.33 X10^3/uL (2.7-7.7); Neutrophil % 86.5 % (47-70); POSITIVE DIFFERENTIAL YES; Platelet Count 176 K/mm3 (150-450); RBC Distribution Width CV 12.6 % (11.6-14.6); RBC Distribution Width SD 41.8 fl (35.1-43.9); Red Blood Count 4.32 M/mm3 (4.2-5.4); White Blood Count 7.3 K/mm3 (4.4-11.0)
[2024-01-15] VITALS (11 sets, daily range): BP systolic 104–120; BP diastolic 52–63; PULSE 57–75; RESP 12–17; TEMP 36.6–37.2; O2SAT 94–97; BMI 33.5
--- NOTE | 2024-01-15 | RAD_ITS ---
INDICATION: fever EXAMINATION/TECHNIQUE: X-RAY - XR Chest 2 Views COMPARISON: October 15, 2023. FINDINGS: LINES/DEVICES: None. LUNGS: No consolidation, edema or effusion. No pneumothorax. MEDIASTINUM AND CARDIOVASCULAR STRUCTURES: Cardiac silhouette not enlarged. Aortic atherosclerosis. BONES AND SOFT TISSUES: Unremarkable. RAD/Chest PA and Lateral IMPRESSION: No radiographic evidence of acute cardiopulmonary disease. Electronically Signed: dE Kent MD at 1:10 EDT ,
[2024-01-15 00:06] LABS: Mucous, Urine 0 SEEN /hpf (<or=2+); Red Blood Cells-Urine 0 SEEN /hpf (0-5)
[2024-01-15 00:07] LABS: AST(SGOT) 793 U/L (15-37); Alanine Aminotransfer ALT/SGPT 463 U/L (13-56); Albumin, Serum 3.3 g/dL (3.2-5.0); Alkaline Phosphatase 238 U/L (45-117); Anion Gap 6 (5-15); BUN 12 mg/dL (7-18); BUN/Creat Ratio 11.8 RATIO (10-20); Bilirubin, Direct 0.46 mg/dL (0.00-0.30); Calcium,Total 8.8 mg/dL (8.5-10.1); Chloride 106 mmol/L (98-107); Creatinine, Serum 1.02 mg/dL (0.55-1.02); EST Glomerular Filtration Rate 57 mL/min (>60); Est Glom Filt Rate - Afr Amer 69 mL/min (>60); Estimated Creatinine Clearance 50.36 ml/min; Glucose 142 mg/dL (74-106); Lipase 37 U/L (13-75); Potassium 3.6 mmol/L (3.5-5.1); Protein, Total 6.3 g/dL (6.4-8.2); Sodium Level 138 mmol/L (136-145)
[2024-01-15 00:08] LABS: Color, Urine Yellow (Yellow); Glucose, Dipstick Normal (Normal); Ketone-Dipstick Negative (Negative); Leukocyte Esterase-Dipstick 100 /ul (Negative); Nitrite-Dipstick Negative (Negative); Occult Blood-Urine Negative /ul (Negative); Protein-Dipstick 15 mg/dl (Negative); Specific Gravity, Urine 1.015 (1.002-1.030); Urine Bilirubin Dipstick Negative (Negative); Urine Clarity Clear (Clear); Urine Urobilinogen Normal (Normal)
[2024-01-15 00:17] LABS: Lactic Acid 2.4 mmol/L (0.4-1.9)
[2024-01-15 00:17] LABS: Bacteria 1+ /hpf (None Seen); Squamous Epithelial Cells - UA 0-5 SEEN /hpf (5-10); White Blood Cells 10-25 SEEN /hpf (0-5)
--- NOTE | 2024-01-15 02:08 | EDS_ITS ---
HPI History of Present Illness Chief Complaint: Fever Informant: patient, spouse/S.O. and family Narrative Narrative: Patient is a 68-year-old female with history of choledocholithiasis status post laparoscopic cholecystectomy as well as need for biliary stent placement. Patient developed a fever following the biliary stent placement roughly 4 to 5 months ago and needed admitted to the hospital for IV antibiotics following this. She recently developed an obstruction of the stent and underwent a ERCP with stent and obstruction removal just yesterday. She states that she was discharged after the procedure went home and had been feeling well throughout the entire day. However around 6 or 7 PM she developed fevers and chills and reports she took her temperature at home and it was elevated at 101. Other than having the fever she denies any cough congestion sore throat chest pain abdominal pain dysuria nausea vomiting or diarrhea. However because of the complications with her past procedure she states she contacted her varnisher plasticoater and was advised to come to the hospital for further evaluation. Patient denies any history of immunosuppression [facility] Medical History History of biliary stent insertion Elevated liver enzymes Wears glasses Wears dentures Post-menopausal Arthritis Gastric reflux Non-smoker Leg cramps History of edema Constipation Home Medications ?Medication ?Instructions ?Recorded ?Last Taken ?Type NK 01/09/24 Unknown History Allergy/AdvReac Type Severity Reaction Status Date / Time No Known Allergies Allergy Verified 01/14/24 23:13 Family History Mother Hypertension Father No problems noted. Surgical History S/P ERCP S/P laparoscopic cholecystectomy Hx of vaginal surgery Social History household members: spouse Smoking Status: Never smoker alcohol intake: never substance use type: does not use ROS ROS ED Constitutional Constitutional ED: Reports chills and fever(s) Eyes Eyes: Denies blurry vision or change in vision ENT ENT ED: Denies ear pain, rhinorrhea or sore throat Cardiovascular Cardiovascular: Denies chest pain, palpitations or racing heartbeat Respiratory/Chest Respiratory/Chest: Denies cough or dyspnea Gastrointestinal Gastrointestinal: Denies abdominal pain, diarrhea, nausea or vomiting Genitourinary Genitourinary ED: Denies dysuria Musculoskeletal Musculoskeletal: Denies myalgias Integumentary Denies rash Neurologic Neurologic: Denies headache(s) Hematologic/Lymphatic Hematologic/Lymphatic: Denies easy bleeding or easy bruising EXAM Physical Exam Const Vital Signs: 01/14/24 23:13 01/14/24 23:16 01/14/24 23:23 Temperature 99.2 F H 99.0 F Temperature Source Oral Oral Pulse Rate 84 75 Respiratory Rate 16 16 Respiratory Effort Normal Respiratory Pattern Normal Blood Pressure 110/67 110/61 Blood Pressure Mean 81 77 Pulse Ox 96 93 Oxygen Delivery Method Room Air Room Air 01/15/24 00:16 01/15/24 01:00 01/15/24 01:10 Temperature 99.0 F 98.3 F Temperature Source Oral Oral Pulse Rate 75 67 67 Respiratory Rate 16 16 16 Respiratory Effort Respiratory Pattern Blood Pressure 120/63 114/60 114/60 Blood Pressure Mean 82 78 78 Pulse Ox 94 97 97 Oxygen Delivery Method Room Air Room Air Room Air 01/15/24 02:00 Temperature 98.4 F Temperature Source Oral Pulse Rate 63 Respiratory Rate 16 Respiratory Effort Respiratory Pattern Blood Pressure 111/61 Blood Pressure Mean 77 Pulse Ox 95 Oxygen Delivery Method Room Air Positive well nourished and well developed General Appearance ED: well developed; Negative for pallor HEENT Reports moist mucous membranes HEENT Narrative: No tongue or lip swelling no oral lesions no airway edema or compromise There is mild cobblestoning the posterior pharynx consistent with sinus drainage without overt findings to suggest infection Eyes PERRL and EOMs intact bilaterally General Eye ED: Negative for scleral icterus Neck supple Neck Narrative: No nuchal rigidity or meningeal signs noted Resp normal respiratory effort and clear to auscultation bilaterally Resp Narrative: Lungs are clear throughout without nasal flaring retractions tachypnea or accessory muscle use Cardio regular rate and regular rhythm GI normal to inspection, nondistended, normoactive bowel sounds, non-tender, non- distended and no masses GI Narrative: Soft nontender nondistended with normal active bowel sound. No voluntary guarding or rigidity or pulsatile mass. No fluid wave or increased tympany. Auscultation: normoactive bowel sounds Palpation: soft Back/Spine no CVA tenderness Extremity normal to inspection Extremity Narrative: No asymmetric edema no pitting edema negative Homans' sign bilaterally Neuro oriented x3, CN's II-XII intact bilaterally and no sensory deficits noted Sensorium / Orientation: alert Motor Exam: strength 5/5 throughout Psych mental status grossly normal Skin no rashes or lesions noted General Skin Exam: Negative for jaundice or pallor MDM MDM MDM Narrative Medical decision making narrative: Patient arrived to the ER afebrile at 99 to but did report taking Tylenol around 7 PM. With her recent operation there is concern that she has now developed leading infection such as acute cholangitis or pneumonia or UTI or even a viral infection such as COVID flu RSV. Secondary to this basic labs were obtained as well as a chest x-ray and CT scan with IV. Labs show no leukocytosis or left shift. Patient's liver enzymes are elevated but this could be related to her recent surgical process. Chest x-ray reveals no signs of pneumonia pneumothorax atelectasis or effusion. As she is only roughly 24 hours postop and has no chest pain or shortness of breath I have low concern for DVT/PE and do not feel the need for a CTA of the chest. The patient's urine sample does question infection as she has white blood cells and +1 bacteria without contamination but she is also nitrite negative and has no dysuria. At this time the patient will have blood cultures and urine cultures obtained superstar on Zosyn secondary to concern for developing cholangitis. The case was discussed with the varnisher plasticoater Dr. Bagley. At this time he feels her safest option is admission to the hospital for continued monitoring especially as she developed an infection following her last biliary stent. Therefore medicine was also contacted and they agreed to accept the patient at this time for continued antibiotic therapy and monitoring to ensure she does not develop acute cholangitis History & Record Review Discussion w/independent historian: Patient and Family Lab Data Attestation: I reviewed the patient's lab results. Labs: Laboratory Results - last 24 hr 01/14/24 01/15/24 23:42 00:01 WBC 7.3 RBC 4.32 Hgb 12.9 Hct 38.8 MCV 89.8 MCH 29.9 MCHC 33.2 RDW Std Deviation 41.8 RDW Coeff of Alicia 12.6 Plt Count 176 MPV 8.7 Immature Gran % (Auto) 0.400 Neut % (Auto) 86.5 H Lymph % (Auto) 7.5 L [place]ike % (Auto) 5.1 Eos % (Auto) 0.1 Baso % (Auto) 0.4 Absolute Neuts (auto) 6.3 Absolute Lymphs (auto) 0.55 L Nucleated RBC % 0 Sodium 138 Potassium 3.6 Chloride 106 Carbon Dioxide 26.0 Anion Gap 6 BUN 12 Creatinine 1.02 Estim Creat Clear Calc 50.36 Est GFR (MDRD) Af Amer 69 Est GFR (MDRD) Non-Af 57 L BUN/Creatinine Ratio 11.8 Glucose 142 H Lactic Acid 2.4 H* Calcium 8.8 Total Bilirubin 1.00 Direct Bilirubin 0.46 H AST 793 H ALT 463 H Alkaline Phosphatase 238 H Total Protein 6.3 L Albumin 3.3 Globulin 3.0 Lipase 37 Urine Color Yellow Urine Clarity Clear Urine pH 6.0 Ur Specific [place] 1.015 Urine Protein 15 H Urine Glucose (UA) Normal Urine Ketones Negative Urine Occult Blood Negative Urine Nitrite Negative Urine Bilirubin Negative Urine Urobilinogen Normal Ur Leukocyte Esterase 100 H Urine RBC 0 SEEN Urine WBC 10-25 SEEN Ur Squamous Epith Cells 0-5 SEEN Urine Bacteria 1+ Urine Mucus 0 SEEN Radiography Diagnostic Testing: Clinical Impression(s) from Imaging Studies Chest X-Ray 01/15/24 00:00 IMPRESSION: No radiographic evidence of acute cardiopulmonary disease. Electronically Signed: Ed Kent MD at 1:10 EDT , Abdomen/Pelvis CT 01/15/24 23:33 IMPRESSION: Small bowel mesenteric stranding is nonspecific but can be seen with mild infectious enteritis in the appropriate setting. Large colonic stool burden. Left ovarian 1.8 cm cyst or cystic mass, unchanged from October 15, 2023. Ultrasound could further characterize if not stable on more remote exams Lower lumbar small posterior disc protrusions with mild spinal canal narrowing.. Electronically Signed: Ed Kent MD at 1:24 EDT , Chest x-ray as interpreted by the emergency medicine physician reveals no acute infiltrate pneumothorax or pleural effusion Management Discussion w/another healthcare provider: Hospitalist and Creative Services Manager Discharge Plan Triage Chief Complaint: Fever ED Provider: Estuardo Toth Dx/Rx/DC Orders Clinical Impression: Postoperative fever, Elevated liver enzymes, UTI (urinary tract infection) Prescriptions: No Action NK Primary Care Provider: Camron Christianson Referrals: Camron Christianson PA-C [Primary Care Provider] - Print Language: Kyrgyz Disposition Disposition: Acute Care [facility]
--- NOTE | 2024-01-15 02:40 | PCM.HP.STD ---
[facility] - General General Date of Admission: 01/15/24 Date of Service: 01/15/24 Chief Complaint: Fever and Chills after ERCP with Stent Removal. HPI Narrative HELENA BRYAN, is a 68 F with a past medical history of obesity; with BMI of 31.5 this admission, GERD, history of constipation, OA, choledocholithiasis; s/p laparoscopic cholecystectomy (09/02/2023) directly followed by an ERCP with biliary stent placement by Dr. Bagley of gastroenterology resulting in admission to the hospital for IV antibiotics with recent development of an obstruction of her biliary stent; s/p ERCP with stent removal yesterday who presents to [facility] ER complaining of fever and chills after ERCP with stent removal. Ms. Bryan reports she was feeling fine when she was discharged home and also throughout the day until ~6:00 PM when she abruptly developed a fever up to 101 degrees Fahrenheit with chills. She then contacted her rehabilitation supervisor who recommended she come to the ER for further evaluation and treatment. She denies associated abdominal pain, nausea, vomiting, diarrhea, dysuria, chest pain or SOB. In the ER she was noted to have laboratory evidence of acute liver inflammation with an elevated direct bilirubin of 0.46 mg/dL and hypertransaminasemia (AST: 793 U/L, ALT: 463 U/L and Alkaline Phosphatase of 238 U/L) with Lactic Acidosis of 2.4 mmol/L present on admission after recent ERCP with stent removal complicated by UA positive for Acute Cystitis; without hematuria along with CT of the abdomen and pelvis positive for Constipation with large stool burden along with an old ~1.8 cm Left ovarian cyst vs. cystic mass similar in appearance to lesion noted in September 2023 and she was then admitted to the general medical floor under observation status for ongoing care for a stay that is expected to be less than 2 midnights. [facility] Medical History History of biliary stent insertion Elevated liver enzymes Wears glasses Wears dentures Post-menopausal Arthritis Gastric reflux Non-smoker Leg cramps History of edema Constipation Home Medications ?Medication ?Instructions ?Recorded ?Last Taken ?Type NK 01/09/24 Unknown History Allergy/AdvReac Type Severity Reaction Status Date / Time No Known Allergies Allergy Verified 01/14/24 23:13 Family History Mother Hypertension Father No problems noted. Surgical History S/P ERCP S/P laparoscopic cholecystectomy Hx of vaginal surgery Social History household members: spouse Smoking Status: Never smoker alcohol intake: never substance use type: does not use ROS ROS Narrative Review of Systems: Constitutional: Patient admits to fever and chills. Eyes: Patient denies changes in vision or discharge from eyes. ENT: Patient denies runny nose, sore throat or ear pain. Resp: Patient denies SOB or cough. CV: Patient denies chest pain, palpitations or heart racing. GI: Patient denies abdominal pain, nausea, vomiting or diarrhea as per HPI. : Patient denies dysuria or hematuria. MSK: Patient denies arthralgias or myalgias. Skin: Patient denies rash, abscess, wound or jaundice. Neuro: Patient denies headache, paresthesias or focal neurologic deficits. Psych: Patient denies symptoms of uncontrolled depression or anxiety. Allergy: Patient denies lip swelling, tongue swelling or urticaria. Hematology: Patient denies easy bleeding or easy bruisability. Endocrinology: Patient denies polyuria, polydipsia and polyphagia. 14 point ROS otherwise negative except for positives noted above. Vital Signs Vital Signs Vital Signs: 01/14/24 23:13 01/14/24 23:16 01/14/24 23:23 Temperature 99.2 F H 99.0 F Temperature Source Oral Oral Pulse Rate 84 75 Respiratory Rate 16 16 Respiratory Effort Normal Respiratory Pattern Normal Blood Pressure 110/67 110/61 Blood Pressure Mean 81 77 Pulse Ox 96 93 Oxygen Delivery Method Room Air Room Air 01/15/24 00:16 01/15/24 01:00 01/15/24 01:10 Temperature 99.0 F 98.3 F Temperature Source Oral Oral Pulse Rate 75 67 67 Respiratory Rate 16 16 16 Respiratory Effort Respiratory Pattern Blood Pressure 120/63 114/60 114/60 Blood Pressure Mean 82 78 78 Pulse Ox 94 97 97 Oxygen Delivery Method Room Air Room Air Room Air 01/15/24 02:00 Temperature 98.4 F Temperature Source Oral Pulse Rate 63 Respiratory Rate 16 Respiratory Effort Respiratory Pattern Blood Pressure 111/61 Blood Pressure Mean 77 Pulse Ox 95 Oxygen Delivery Method Room Air Weight Weight: 172 lb 1.6 oz Body Mass Index (BMI) 31.4 Physical Exam Const alert, oriented x3, no apparent distress and average body habitus General Appearance: cooperative HEENT normocephalic, head/scalp atraumatic, hearing grossly normal bilaterally and moist oral mucous membranes Eyes PERRL and EOMs intact bilaterally Neck no lymphadenopathy and supple Resp normal respiratory effort, no retractions, no use of accessory muscles and clear to auscultation bilaterally Cardio regular rate and regular rhythm GI normal to inspection, nondistended, normoactive bowel sounds, soft to palpation, non-tender and non-distended Extremity normal to inspection and full ROM Skin Skin Narrative: Patient has no evidence of rash, abscess, wound or jaundice. Neuro oriented x3, CN's II-XII intact bilaterally, moves all extremities and no focal motor deficits Sensorium / Orientation: awake, alert, oriented to person, oriented to place and oriented to time Speech: speech normal Psych affect normal Results Medical Records Data Attestation: I reviewed the patient's medical records Lab / Micro Data Attestation: I reviewed the patient's lab results. 01/14/24 23:42 01/14/24 23:42 Labs: Laboratory Results - last 24 hr 01/14/24 23:42: WBC 7.3, RBC 4.32, Hgb 12.9, Hct 38.8, MCV 89.8, MCH 29.9, MCHC 33.2, RDW Std Deviation 41.8, RDW Coeff of Alicia 12.6, Plt Count 176, MPV 8.7, Immature Gran % (Auto) 0.400, Neut % (Auto) 86.5 H, Lymph % (Auto) 7.5 L, [place] % (Auto) 5.1, Eos % (Auto) 0.1, Baso % (Auto) 0.4, Absolute Neuts (auto) 6.3, Absolute Lymphs (auto) 0.55 L, Nucleated RBC % 0, Sodium 138, Potassium 3.6, Chloride 106, Carbon Dioxide 26.0, Anion Gap 6, BUN 12, Creatinine 1.02, Estim Creat Clear Calc 50.36, Est GFR (MDRD) Af Amer 69, Est GFR (MDRD) Non-Af 57 L, BUN/Creatinine Ratio 11.8, Glucose 142 H, Lactic Acid 2.4 H*, Calcium 8.8, Total Bilirubin 1.00, Direct Bilirubin 0.46 H, AST 793 H, ALT 463 H, Alkaline Phosphatase 238 H, Total Protein 6.3 L, Albumin 3.3, Globulin 3.0, Lipase 37 01/15/24 00:01: Urine Color Yellow, Urine Clarity Clear, Urine pH 6.0, Ur Specific [place] 1.015, Urine Protein 15 H, Urine Glucose (UA) Normal, Urine Ketones Negative, Urine Occult Blood Negative, Urine Nitrite Negative, Urine Bilirubin Negative, Urine Urobilinogen Normal, Ur Leukocyte Esterase 100 H, Urine RBC 0 SEEN, Urine WBC 10-25 SEEN, Ur Squamous Epith Cells 0-5 SEEN, Urine Bacteria 1+, Urine Mucus 0 SEEN Imaging Radiology Impression Chest X-Ray 01/15/24 00:00 IMPRESSION: No radiographic evidence of acute cardiopulmonary disease. Electronically Signed: Ed Kent MD at 1:10 EDT Reading Location ID and State: [facility] / [place] Tel , Service support , Abdomen/Pelvis CT 01/15/24 23:33 IMPRESSION: Small bowel mesenteric stranding is nonspecific but can be seen with mild infectious enteritis in the appropriate setting. Large colonic stool burden. Left ovarian 1.8 cm cyst or cystic mass, unchanged from October 15, 2023. Ultrasound could further characterize if not stable on more remote exams Lower lumbar small posterior disc protrusions with mild spinal canal narrowing.. Electronically Signed: Ed Kent MD at 1:24 EDT , Assessment & Plan Assessment/Plan (1) Elevated liver enzymes: (2) Postoperative fever: (3) UTI (urinary tract infection): QUALIFIERS: Urinary tract infection type: acute cystitis Hematuria presence: without hematuria Qualified Code(s): N30.00 - Acute cystitis without hematuria (4) Fatigue: QUALIFIERS: Fatigue type: unspecified Qualified Code(s): R53.83 - Other fatigue (5) S/P laparoscopic cholecystectomy: (6) Obesity (BMI 30.0-34.9): (7) Left ovarian cyst: (8) Constipation: QUALIFIERS: Constipation type: unspecified constipation type Qualified Code(s): K59.00 - Constipation, unspecified PLAN: Plan 1. Acute liver inflammation with an elevated direct bilirubin of 0.46 mg/dL and hypertransaminasemia (AST: 793 U/L, ALT: 463 U/L and Alkaline Phosphatase of 238 U/L) with Lactic Acidosis of 2.4 mmol/L present on admission after recent ERCP with stent removal - Admit to general medical floor under observation status. Continue empiric Zosyn begun in the ER. Keep NPO. Give ibuprofen prn for [id number] (level 1-5/10) pain or fever. Give Morphine prn for severe (level 6-10/10) pain. Give Zofran IV prn nausea. Avoid potentially hepatotoxic agents. Check hepatitis profile. Finally, we will consult gastroenterology to see this patient on-rounds in the AM for further recommendations with help appreciated in advance. 2. UA positive for Acute Cystitis; without hematuria complicating #1 - Continue antibiotics initiated for #1 and await culture and sensitivity data. 3. History of choledocholithiasis; s/p laparoscopic cholecystectomy (09/02/2023) directly followed by an ERCP with biliary stent placement by Dr. Bagley of gastroenterology resulting in admission to the hospital for IV antibiotics with recent development of an obstruction of her biliary stent; s/p ERCP with stent removal yesterday compounding #1 & #2 - Noted. 4. CT of the abdomen and pelvis positive for Constipation with large stool burden along with an old ~1.8 cm Left ovarian cyst vs. cystic mass similar in appearance to lesion noted in September 2023 adding to the medical complexity of #1 - #3 - Give Fleet's enema once now to evacuate bowel. Once GI workup has been completed we will treat with routine bowel regimen to minimize risk of recurrence. Patient will need referral to GEOMAGNETIST to complete evaluation of her chronic Left ovarian cystic lesion. 5. Obesity; with BMI of 31.5 this admission - Weight loss will be recommended. Check TSH. This complicated her case and may hamper recovery. 6. GERD - Continue PPI IV. 7. OA - Stable. 8. DVT prophylaxis - SCD's only with likely impending repeat ERCP. Total time: Approximately 70 minutes. Charges/Coding Visit Charges OBSV E&M: 75258 Observ/hosp same date L2
[2024-01-15 02:43] LABS: Reflex Lactate? Y
[2024-01-15 03:56] LABS: Lactic Acid 1.9 mmol/L (0.4-1.9)
[2024-01-15] MEDS: 0.9% Normal Saline (1000mL) 1,000 ML 75 ML IV ×2 (03:57→17:23)
[2024-01-15] MEDS: Fleet Enema 133 ML RC (04:07)
--- NOTE | 2024-01-15 04:13 | NURSING ---
Enema given. Pt did not hold it well but said she thinks there is still some in there
[2024-01-15] MEDS: Piperacil/Tazobactam 3.375 GM in 0.9% Normal Saline (50mL MB+) 50 ML IV ×3 (05:43→21:49)
[2024-01-15 06:37] LABS: Absolute Lymphocyte Count 0.89 X10^3/uL (0.83-4.51); Absolute Neutrophil Count 6.6 X10^3/uL (2.0-7.7); Basophil# 0.04 X10^3/uL; Basophil% 0.5 % (0-1); Eosinophil# 0.04 X10^3/uL; Eosinophils% 0.5 % (0-5); Hematocrit 35.2 % (37-47); Hemoglobin 11.7 g/dL (12.0-15.0); Lymphocyte # 0.89 X10^3/ul (0.83-4.51); Lymphocyte % 11.2 % (19-41); Mean Corp Hgb Conc 33.2 g/dL (32-36); Mean Corpuscular Hgb 30.2 pg (27.0-32.0); Monocyte# 0.36 X10^3/uL; Monocyte% 4.5 % (0-10); NRBC Flagged by Analyzer 0 % (0-5); Neutrophil # 6.57 X10^3/uL (2.7-7.7); Neutrophil % 82.9 % (47-70); Platelet Count 193 K/mm3 (150-450); RBC Distribution Width SD 42.1 fl (35.1-43.9); Red Blood Count 3.87 M/mm3 (4.2-5.4); White Blood Count 7.9 K/mm3 (4.4-11.0)
[2024-01-15 07:14] LABS: AST(SGOT) 660 U/L (15-37); Alanine Aminotransfer ALT/SGPT 533 U/L (13-56); Albumin, Serum 2.9 g/dL (3.2-5.0); Alkaline Phosphatase 231 U/L (45-117); Anion Gap 5 (5-15); BUN 10 mg/dL (7-18); BUN/Creat Ratio 12.9 RATIO (10-20); Calcium,Total 8.5 mg/dL (8.5-10.1); Chloride 112 mmol/L (98-107); Creatinine, Serum 0.77 mg/dL (0.55-1.02); EST Glomerular Filtration Rate 79 mL/min (>60); Est Glom Filt Rate - Afr Amer 95 mL/min (>60); Estimated Creatinine Clearance 63.79 ml/min; Globulin 2.9 g/dL (2.2-4.2); Glucose 116 mg/dL (74-106); Phosphorus 3.6 mg/dL (2.5-4.9); Potassium 3.9 mmol/L (3.5-5.1); Protein, Total 5.8 g/dL (6.4-8.2); Sodium Level 142 mmol/L (136-145)
--- NOTE | 2024-01-15 07:44 | PN.HOSP_ITS ---
Reason for Visit Reason for Visit: Diagnoses Obesity, unspecified (01/15/24) Constipation, unspecified (01/15/24) Acute cystitis without hematuria (01/15/24) Unspecified ovarian cyst, left side (01/15/24) Postprocedural fever (01/15/24) Other fatigue (01/15/24) Abnormal levels of other serum enzymes (01/15/24) Acquired absence of other specified parts of digestive tract (01/15/24) Subjective Subjective Feeling well. Denies abdominal pain. Objective Data Objective Data Vital Signs: Vital Signs Temp Pulse Resp BP Pulse Ox O2 Del Method 36.7 C 57 L 17 104/52 L 96 Room Air 01/15/24 03:48 01/15/24 03:48 01/15/24 03:48 01/15/24 03:48 01/15/24 03:48 01/15/24 03:48 Oxygen Delivery Method Room Air Weight: 80.5 kg Body Mass Index (BMI) 33.5 Intake & Output: Intake and Output for Last 24 Hours 01/13/24 01/14/24 01/15/24 23:59 23:59 23:59 Intake Total 1050 / 1050 Balance 1050 / 1050 Lab / Micro Data 01/15/24 05:36 01/15/24 05:36 Labs: Laboratory Results - last 24 hr 01/14/24 23:42: WBC 7.3, RBC 4.32, Hgb 12.9, Hct 38.8, MCV 89.8, MCH 29.9, MCHC 33.2, RDW Std Deviation 41.8, RDW Coeff of Alicia 12.6, Plt Count 176, MPV 8.7, Immature Gran % (Auto) 0.400, Neut % (Auto) 86.5 H, Lymph % (Auto) 7.5 L, [place] % (Auto) 5.1, Eos % (Auto) 0.1, Baso % (Auto) 0.4, Absolute Neuts (auto) 6.3, A bsolute Lymphs (auto) 0.55 L, Nucleated RBC % 0, Sodium 138, Potassium 3.6, Chloride 106, Carbon Dioxide 26.0, Anion Gap 6, BUN 12, Creatinine 1.02, Estim Creat Clear Calc 50.36, Est GFR (MDRD) Af Amer 69, Est GFR (MDRD) Non-Af 57 L, BUN/Creatinine Ratio 11.8, Glucose 142 H, Lactic Acid 2.4 H*, Calcium 8.8, Total Bilirubin 1.00, Direct Bilirubin 0.46 H, AST 793 H, ALT 463 H, Alkaline Phosphatase 238 H, Total Protein 6.3 L, Albumin 3.3, Globulin 3.0, Lipase 37 01/15/24 00:01: Urine Color Yellow, Urine Clarity Clear, Urine pH 6.0, Ur Specific [place] 1.015, Urine Protein 15 H, Urine Glucose (UA) Normal, Urine Ketones Negative, Urine Occult Blood Negative, Urine Nitrite Negative, Urine Bilirubin Negative, Urine Urobilinogen Normal, Ur Leukocyte Esterase 100 H, Urine RBC 0 SEEN, Urine WBC 10-25 SEEN, Ur Squamous Epith Cells 0-5 SEEN, Urine Bacteria 1+, Urine Mucus 0 SEEN 01/15/24 02:49: Lactic Acid 1.9 01/15/24 05:36: WBC 7.9, RBC 3.87 L, Hgb 11.7 L, Hct 35.2 L, MCV 91.0, MCH 30.2, MCHC 33.2, RDW Std Deviation 42.1, RDW Coeff of Alicia 13.0, Plt Count 193, MPV 9.0, Immature Gran % (Auto) 0.400, Neut % (Auto) 82.9 H, Lymph % (Auto) 11.2 L, [place] % (Auto) 4.5, Eos % (Auto) 0.5, Baso % (Auto) 0.5, Absolute Neuts (auto) 6.6, Absolute Lymphs (auto) 0.89, Nucleated RBC % 0, Sodium 142, Potassium 3.9, Chloride 112 H, Carbon Dioxide 24.0, Anion Gap 5, BUN 10, Creatinine 0.77, Estim Creat Clear Calc 63.79, Est GFR (MDRD) Af Amer 95, Est GFR (MDRD) Non-Af 79, BUN/Creatinine Ratio 12.9, Glucose 116 H, Calcium 8.5, Phosphorus 3.6, Magnesium 2.0, Total Bilirubin 1.00, AST 660 H, ALT 533 H, Alkaline Phosphatase 231 H, T otal Protein 5.8 L, Albumin 2.9 L, Globulin 2.9, Albumin/Globulin Ratio 1.0, TSH 2.450 Radiography Diagnostic Testing: Radiology Impression Chest X-Ray 01/15/24 00:00 IMPRESSION: No radiographic evidence of acute cardiopulmonary disease. Electronically Signed: Ed Kent MD at 1:10 EDT Reading Location ID and State: [facility] / [place] Tel , Service support , Abdomen/Pelvis CT 01/15/24 23:33 IMPRESSION: Small bowel mesenteric stranding is nonspecific but can be seen with mild infectious enteritis in the appropriate setting. Large colonic stool burden. Left ovarian 1.8 cm cyst or cystic mass, unchanged from October 15, 2023. Ultrasound could further characterize if not stable on more remote exams Lower lumbar small posterior disc protrusions with mild spinal canal narrowing.. Electronically Signed: Ed Kent MD at 1:24 EDT Reading Location ID and State: [facility] / [place] Tel , Service support , Physical Exam Const alert and no apparent distress HEENT head/scalp atraumatic Resp normal respiratory effort, no retractions, no use of accessory muscles and clear to auscultation bilaterally Cardio regular rate, regular rhythm, S1 normal heart sound and S2 normal heart sound GI normal to inspection, nondistended, normoactive bowel sounds, soft to palpation, non-tender and non-distended Extremity normal to inspection and full ROM Neuro Sensorium / Orientation: awake and alert Assessment & Plan Assessment/Plan (1) Elevated liver enzymes: (2) Postoperative fever: (3) Fatigue: QUALIFIERS: Fatigue type: unspecified Qualified Code(s): R53.83 - Other fatigue (4) Left ovarian cyst: PLAN: Plan Acute transaminitis * CT scan shows small bowel mesenteric stranding large colonic stool burden. Left ovarian 1.8 cm cyst or cystic mass that is unchanged from October 15, 2023. * Started on pip-tazo. Currently continued. * GI consult * Acute hepatitis profile pending Abnormal urinalysis * Rather benign looking at the leuk esterase is slightly elevated and white cells are minimally elevated though I would not feel that this qualifies urinary tract infection. Already on antibiotics with pip-tazo. Constipation * Noted large stool burden on CT. Received fleets enema. Has subsequently had a bowel movement. Chronic condition * Obesity class I: Complicates care and recovery * GERD: PPI VTE prophylaxis with SCDs Charges/Coding Procedures Hospitalists Procedures: Other Procedure - See Report (Nonbillable rounding as patient was admitted after midnight.)
[2024-01-15] MEDS: Pantoprazole Sodium 40 MG in 0.9% Normal Saline (100mL MB+) 100 ML 330 MG IV (11:17)
--- NOTE | 2024-01-15 13:50 | CASEMGMT ---
Social Work- Pt reports that she does not have directives and is not interested in information at this time. DAVID Mata
--- NOTE | 2024-01-15 15:01 | CASEMGMT ---
Social Work- SW met with pt, pt spouse, and pt dtr to discuss self pay status. Pt had a [employer] form that they had nearly completed. SW assisted in answering questions and providing information. Pt family completed form with assistance. SW encouraged family to drop form off between 8-4:30 to [place] and provided the location. PT and family report no other needs at this time. DAVID Mata
[2024-01-15] MEDS: 0.9% Normal Saline (250mL Bag) 250 ML 15 ML IV (21:50)
--- NOTE | 2024-01-15 23:33 | CT_ITS ---
INDICATION: post op fever EXAMINATION: CT ABDOMEN AND PELVIS WITH CONTRAST - CT Abdomen And Pelvis W/ Contrast Injection TECHNIQUE: Helically acquired images were obtained of the abdomen and pelvis following IV contrast. A radiation dose optimization technique was used for this scan. IV Contrast dosage and agent: [100 mL [id number] Oral contrast: None. COMPARISON: None. FINDINGS: LOWER CHEST: Lung bases are clear. No cardiomegaly or pericardial effusion. LIVER: Homogeneous. No focal mass. GALLBLADDER AND BILIARY TREE: Prior cholecystectomy. Mild expected postsurgical intra- or extrahepatic biliary ductal dilation. PANCREAS: No focal cystic or solid mass. SPLEEN: Normal size without focal cystic or solid mass. ADRENAL GLANDS: No nodules. KIDNEYS AND URETERS: Left kidney is externally rotated.. Normal renal size without hydronephrosis. No perinephric inflammation. PERITONEUM: No ascites or free air. No other fluid collection. BOWEL: No acute gastric finding. No small bowel distention. Mild diffuse small bowel mesenteric vascular engorgement and fat stranding without wall thickening. Appendix is not seen. No right lower quadrant inflammation to suggest appendicitis. Large colonic stool burden. . LYMPH NODES: No enlarged mesenteric or retroperitoneal lymph nodes. VESSELS: Aortic atherosclerosis without ectasia.. URINARY BLADDER: Unremarkable. REPRODUCTIVE ORGANS: Anterior uterus. No evidence of adnexal mass. Left ovary 1.8 cm cyst.. ABDOMINAL WALL: No discrete abdominal or pelvic wall hernia. BONES: No lytic or blastic abnormality. Small posterior disc protrusions L4-5 and L5-S1 with mild spinal canal and bilateral neural foraminal stenosis CT/Abdomen/Pelvis W IV Cont ONLY IMPRESSION: Small bowel mesenteric stranding is nonspecific but can be seen with mild infectious enteritis in the appropriate setting. Large colonic stool burden. Left ovarian 1.8 cm cyst or cystic mass, unchanged from October 15, 2023. Ultrasound could further characterize if not stable on more remote exams Lower lumbar small posterior disc protrusions with mild spinal canal narrowing.. Electronically Signed: Ed Kent MD at 1:24 EDT ,
[2024-01-16] VITALS (14 sets, daily range): BP systolic 115–161; BP diastolic 65–87; PULSE 61–76; RESP 12–17; TEMP 36.2–37.2; O2SAT 96–97; BMI 33.5
[2024-01-16] MEDS: 0.9% Normal Saline (1000mL) 1,000 ML 75 ML IV ×2 (05:00→20:30)
[2024-01-16] MEDS: Piperacil/Tazobactam 3.375 GM in 0.9% Normal Saline (50mL MB+) 50 ML IV ×3 (05:00→22:07)
[2024-01-16 05:05] LABS: Absolute Lymphocyte Count 0.67 X10^3/uL (0.83-4.51); Absolute Neutrophil Count 3.7 X10^3/uL (2.0-7.7); Basophil# 0.05 X10^3/uL; Eosinophil# 0.06 X10^3/uL; Eosinophils% 1.2 % (0-5); Hematocrit 37.1 % (37-47); Hemoglobin 11.9 g/dL (12.0-15.0); Lymphocyte # 0.67 X10^3/ul (0.83-4.51); Lymphocyte % 13.7 % (19-41); Mean Corp Hgb Conc 32.1 g/dL (32-36); Mean Corpuscular Hgb 29.5 pg (27.0-32.0); Mean Corpuscular Volume 92.1 fL (81-99); Mean Platelet Vol. 9.3 fl (6.2-12.0); Monocyte# 0.38 X10^3/uL; Monocyte% 7.8 % (0-10); NRBC Flagged by Analyzer 0.6 % (0-5); Neutrophil # 3.71 X10^3/uL (2.7-7.7); Neutrophil % 75.7 % (47-70); Platelet Count 158 K/mm3 (150-450); RBC Distribution Width CV 12.9 % (11.6-14.6); RBC Distribution Width SD 43.5 fl (35.1-43.9); Red Blood Count 4.03 M/mm3 (4.2-5.4); White Blood Count 4.9 K/mm3 (4.4-11.0)
[2024-01-16 05:08] LABS: HEPATITIS B SURFACE AG Negative (Negative); Hep C Antibodies Non Reactive (Non Reactive); Hepatitis A IgM Antibody Negative (Negative); Hepatitis B Core AB IgM Negative (Negative)
[2024-01-16 05:45] LABS: ALB/GLOB Ratio 0.9 RATIO (0.9-2.4); AST(SGOT) 710 U/L (15-37); Alanine Aminotransfer ALT/SGPT 703 U/L (13-56); Albumin, Serum 2.7 g/dL (3.2-5.0); Alkaline Phosphatase 309 U/L (45-117); Anion Gap 4 (5-15); BUN 7 mg/dL (7-18); BUN/Creat Ratio 9.3 RATIO (10-20); Calcium,Total 8.3 mg/dL (8.5-10.1); Chloride 112 mmol/L (98-107); Creatinine, Serum 0.75 mg/dL (0.55-1.02); EST Glomerular Filtration Rate 81 mL/min (>60); Est Glom Filt Rate - Afr Amer 98 mL/min (>60); Estimated Creatinine Clearance 63.79 ml/min; Globulin 2.9 g/dL (2.2-4.2); Glucose 123 mg/dL (74-106); Potassium 3.6 mmol/L (3.5-5.1); Protein, Total 5.6 g/dL (6.4-8.2); Sodium Level 141 mmol/L (136-145)
--- NOTE | 2024-01-16 06:00 | EKG12_ITS ---
Test Reason : AM EKG Blood Pressure : / mmHG Vent. Rate : 070 BPM Atrial Rate : 070 BPM P-R Int : 174 ms QRS Dur : 072 ms QT Int : 372 ms P-R-T Axes : 058 037 035 degrees QTc Int : 401 ms Normal sinus rhythm Low voltage QRS Borderline ECG Confirmed by UDAY KERR, NORMA ([id number]), supervising film or videotape editor PERRI MARCOS ([id number]) on 01/16/2024 9:10:57 AM Referred By: MERCER Confirmed By:NORMA FRYE MD
--- NOTE | 2024-01-16 07:17 | PN.HOSP_ITS ---
Reason for Visit Reason for Visit: Diagnoses Obesity, unspecified (01/15/24) Constipation, unspecified (01/15/24) Acute cystitis without hematuria (01/15/24) Unspecified ovarian cyst, left side (01/15/24) Postprocedural fever (01/15/24) Other fatigue (01/15/24) Abnormal levels of other serum enzymes (01/15/24) Acquired absence of other specified parts of digestive tract (01/15/24) Subjective Subjective No abdominal pain. Objective Data Objective Data Vital Signs: Vital Signs Temp Pulse Resp BP Pulse Ox O2 Del Method 37.2 C 66 16 136/83 H 97 Room Air 01/16/24 05:05 01/16/24 05:05 01/16/24 05:05 01/16/24 05:05 01/16/24 05:05 01/16/24 05:05 Oxygen Delivery Method Room Air Weight: 80.5 kg Body Mass Index (BMI) 33.5 Intake & Output: Intake and Output for Last 24 Hours 01/14/24 01/15/24 01/16/24 23:59 23:59 23:59 Intake Total 2260.25 / 2260.25 968.25 / 968.25 Balance 2260.25 / 2260.25 968.25 / 968.25 Lab / Micro Data 01/16/24 04:09 01/16/24 04:09 Labs: Laboratory Results - last 24 hr 01/15/24 05:36: Hepatitis A IgM Ab Negative, Hep Bs Antigen Negative, Hep B Core IgM Ab Negative, Hepatitis C Ab (EIA) Non Reactive, Hep C Ab Comment Comment 01/16/24 04:09: WBC 4.9, RBC 4.03 L, Hgb 11.9 L, Hct 37.1, MCV 92.1, MCH 29.5, MCHC 32.1, RDW Std Deviation 43.5, RDW Coeff of Alicia 12.9, Plt Count 158, MPV 9.3, Immature Gran % (Auto) 0.600, Neut % (Auto) 75.7 H, Lymph % (Auto) 13.7 L, [place] % (Auto) 7.8, Eos % (Auto) 1.2, Baso % (Auto) 1.0, Absolute Neuts (auto) 3.7, Absolute Lymphs (auto) 0.67 L, Nucleated RBC % 0.6, Sodium 141, Potassium 3.6, Chloride 112 H, Carbon Dioxide 24.0, Anion Gap 4 L, BUN 7, Creatinine 0.75, Estim Creat Clear Calc 63.79, Est GFR (MDRD) Af Amer 98, Est GFR (MDRD) Non-Af 81, BUN/Creatinine Ratio 9.3 L, Glucose 123 H, Calcium 8.3 L, Total Bilirubin 1.60 H, AST 710 H, ALT 703 H, Alkaline Phosphatase 309 H, Total Protein 5.6 L, A lbumin 2.7 L, Globulin 2.9, Albumin/Globulin Ratio 0.9 Physical Exam Const alert and no apparent distress HEENT head/scalp atraumatic and moist oral mucous membranes Cardio regular rate, regular rhythm, S1 normal heart sound and S2 normal heart sound GI normal to inspection, nondistended, normoactive bowel sounds, soft to palpation, non-tender and non-distended Neuro Sensorium / Orientation: awake and alert Assessment & Plan Assessment/Plan (1) Elevated liver enzymes: (2) Postoperative fever: (3) Fatigue: QUALIFIERS: Fatigue type: unspecified Qualified Code(s): R53.83 - Other fatigue (4) Left ovarian cyst: PLAN: Plan Acute transaminitis * improved initially, but now back up. * CT scan shows small bowel mesenteric stranding large colonic stool burden. Left ovarian 1.8 cm cyst or cystic mass that is unchanged from October 15, 2023. * Abx w pip/tazo * ERCP * Acute hepatitis profile negative. Abnormal urinalysis * Rather benign looking at the leuk esterase is slightly elevated and white cells are minimally elevated though I would not feel that this qualifies urinary tract infection. Already on antibiotics with pip-tazo. Constipation * Noted large stool burden on CT. Received fleets enema. Has subsequently had a bowel movement. Chronic condition * Obesity class I: Complicates care and recovery * GERD: PPI VTE prophylaxis with SCDs Charges/Coding Visit Charges Inpatient E&M: 14733 Subs Hosp L2
--- NOTE | 2024-01-16 07:29 | CPS ---
Pt sleeping at this time. SMI and Pep therapy held.
[2024-01-16] MEDS: Pantoprazole Sodium 40 MG in 0.9% Normal Saline (100mL MB+) 100 ML 330 MG IV (09:38)
--- NOTE | 2024-01-16 15:28 | PCM.PRE.AN2 ---
ASA Classification* ASA Classification ASA Classification: 3 Assessment & Plan Anesthesia* Anesthesia Assessment Anesthesia Assessment: Discussed sedation and/or anesthesia options, risks, benefits, and alternatives with patient/parents/legal guardian/POA. Questions invited. The patient/parents/legal guardian/POA seems to understand and agrees to proceed with anesthesia plan. Reviewed the physical assessment, medical history, allergy history and patient home medications list prior to surgery/procedure/anesthetic and documented any changes. Performed airway and anesthesia risk assessments. Anesthesia Type Anesthesia Type: General History Source History Obtained from:: Patient and Chart Anesthesia Focused Assessment* Temperature: 98.9 F Pulse Rate: 62 Blood Pressure: 115/87 Respiratory Rate: 14 Pulse Ox: 96 Oxygen Delivery Method: Room Air Airway Assessment Mouth opens: 2 cm Mallampati Score: III Teeth Condition: Full (Full dentures on top is out.) Neck Range of motion (ROM): Limited ROM (Somewhat decreased in extension) Pertinent Findings EKG Pertinent Findings:: January 16, 2024. normal sinus rhythm. Focused Labs Anesthesia Preop lab: CBC WBC 4.9 K/mm3 (4.4-11.0) 01/16/24 04:09 RBC 4.03 M/mm3 (4.2-5.4) L 01/16/24 04:09 Hgb 11.9 g/dL (12.0-15.0) L 01/16/24 04:09 Hct 37.1 % (37-47) 01/16/24 04:09 Plt Count 158 K/mm3 (150-450) 01/16/24 04:09 CHEMISTRY Potassium 3.6 mmol/L (3.5-5.1) 01/16/24 04:09 Sodium 141 mmol/L (136-145) 01/16/24 04:09 Magnesium 2.0 mg/dL (1.6-2.6) 01/15/24 05:36 Phosphorus 3.6 mg/dL (2.5-4.9) 01/15/24 05:36 BUN 7 mg/dL (7-18) 01/16/24 04:09 Creatinine 0.75 mg/dL (0.55-1.02) 01/16/24 04:09 Glucose 123 mg/dL (74-106) H 01/16/24 04:09 TSH 2.450 uIU/mL (0.358-3.740) 01/15/24 05:36 COAG Pre-Assessment Diagnosis/Proposed Procedure Planned Operative Procedure(s): ERCP Anesthesia History Anesthesia History - campaign advisor: Anesthesia History - campaign advisor Hx Hospitalization No 01/09/24 14:34 Any Problems With Anesthesia No 01/16/24 13:11 Cholinesterase deficiency No 01/16/24 13:11 You/Your Family Experience No 01/16/24 13:11 fever (hyperthermia) with Relationship Recent Exposure to Contagious No 01/16/24 13:11 Disease Does patient have nerve No 01/16/24 13:11 stimulator Patient instructed to have device shut off --Does patient have Pacemaker No 01/16/24 13:28 or ICD? When Was Last Pacemaker Check QUESTION #4 FULL TEXT: You/Your Family Experience fever (hyperthermia) with Anesthesia Last Oral Intake Last Oral intake: Last Oral Intake NPO since 00:00 01/16/24 13:28 Meds taken in AM with sips of No 01/16/24 13:28 water? Meds patient instructed to take am of surgery PONV PONV - campaign advisor: PONV - campaign advisor Female HX of Motion Sickness HX of N/V After Surgery Non-Smoker Duration of Surgery greater than 60 minutes Number of Risk Factors PONV Score Height & Weight Height & Weight: Anesthesia: Height & Weight Height 5 ft 1 in 01/16/24 13:28 Weight: 80.5 kg 01/16/24 13:28 Body Mass Index (BMI) 33.5 01/16/24 13:28 Respiratory Assessment Respiratory Assessment - campaign advisor: Respiratory Tract Infection Hx - campaign advisor Hx Respiratory Tract Infection No 01/16/24 13:11 STOP Sleep Apnea STOP Sleep Apnea - campaign advisor: STOP Sleep Apnea - campaign advisor Hx Hypertension No 01/15/24 14:27 Hx Sleep Apnea No 01/15/24 03:45 CPAP BIPAP Do you snore loudly (louder No 01/15/24 03:45 than talking or can be heard Do you often feel tired/ No 01/15/24 03:45 fatigued/ sleepy during daytime? Has anyone observed you stop No 01/15/24 03:45 breathing during sleep? STOP Results Negative 01/15/24 03:45 QUESTION #5 FULL TEXT : Do you snore loudly (louder than talking or can be heard through closed doors)? 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 Specify any problems Hx of Preganancy in last 3 No 01/15/24 03:45 Months Nurse Filling Out Transfusion DREDICK 01/15/24 03:45 & Questions: Date: 01/15/24 01/15/24 03:45 Time: 03:46 01/15/24 03:45 Patient unable to answer at this time (ie. confused, unrespo /Reproduction History /Reproductive History - campaign advisor: /Reproductive Hx- campaign advisor Hx Now No 01/16/24 13:11 Gestational Age (in weeks): EDC: Hx Hx Para Hx Section SAB No 01/16/24 13:11 Active Medications Active Medications: Current Medications Generic Name Dose Route Start Last Admin Trade Name Freq PRN Reason Stop Dose Admin Sodium Chloride 1,000 mls @ 75 mls/hr 01/15/24 03:35 01/16/24 05:00 IV 75 mls/hr .[id number] RICKI Administration Pantoprazole Sodium 40 mg/ 110 mls @ 330 mls/hr 01/15/24 10:00 01/16/24 10:00 Sodium Chloride IV Infused Q24 RICKI Infusion Piperacillin Sod/Tazobactam 50 mls @ 12.5 mls/hr 01/15/24 06:00 01/16/24 13:06 Sod 3.375 gm/ Sodium Chloride IV 13.5 mls/hr Q8 RICKI Administration Sodium Chloride 250 mls @ 15 mls/hr 01/15/24 03:36 01/16/24 05:00 IV 0 mls/hr .[id number] PRN Infusion Additional IVPB Infusion Sodium Chloride 250 mls @ 15 mls/hr 01/15/24 03:36 IV .[id number] PRN Saline Flush Ibuprofen 200 mg 01/15/24 03:35 Ibuprofen 200 Mg Tablet PO Q4H PRN PRN Pain 1-5/10 Or Fever >100.7 Melatonin 3 mg 01/15/24 03:35 Melatonin 3 Mg Tablet PO QHS PRN PRN INSOMNIA Morphine Sulfate 2 mg 01/15/24 03:35 Morphine 2 Mg/Ml Syringe IV Q4H PRN PRN Pain Score 6-10 Ondansetron HCl 4 mg 01/15/24 03:35 Ondansetron 4 Mg/2 Ml Vial IV Q6H PRN PRN NAUSEA/VOMITING Sodium Chloride 10 - 40 ml 01/15/24 03:36 0.9% Saline Lock 10 Ml Syringe IV UD PRN SALINE FLUSH PFSH Medical History History of biliary stent insertion Elevated liver enzymes Wears glasses Wears dentures Post-menopausal Arthritis Gastric reflux Non-smoker Leg cramps History of edema Constipation Home Medications ?Medication ?Instructions ?Recorded ?Last Taken ?Type NK 01/09/24 Unknown History Allergy/AdvReac Type Severity Reaction Status Date / Time No Known Allergies Allergy Verified 01/14/24 23:13 Family History Mother Hypertension Father No problems noted. Surgical History S/P ERCP S/P laparoscopic cholecystectomy Hx of vaginal surgery Social History household members: spouse Smoking Status: Never smoker alcohol intake: never substance use type: does not use Review of Systems (Anesthesia) ROS Narrative System reviewed and no additional complaints, except as documented.
--- NOTE | 2024-01-16 17:35 | CON.PCM.GI_ITS ---
HPI Consult Data Date of Consult: 01/16/24 HPI Narrative Reason for Consultation: Cholestatic hepatitis and right upper quadrant pain HPI Narrative: HELENA FOSTER, is a 68 F with a past medical history of obesity; with BMI of 31.5 this admission, GERD, history of constipation, OA, choledocholithiasis; s/p laparoscopic cholecystectomy (09/02/2023) directly followed by an ERCP with biliary stent placement resulting in admission to the hospital for IV antibiotics with recent development of an obstruction of her biliary stent; s/p ERCP with stent removal. She presents to [facility] ER complaining of fever and chills after ERCP with stent removal. Ms. Foster reports she was feeling fine when she was discharged home and also throughout the day until ~6:00 PM when she abruptly developed a fever up to 101 degrees Fahrenheit with chills. She then contacted her accounting generalist who recommended she come to the ER for further evaluation and treatment. She denies associated abdominal pain, nausea, vomiting, diarrhea, dysuria, chest pain or SOB. In the ER she was noted to have laboratory evidence of acute liver inflammation with an elevated direct bilirubin of 0.46 mg/dL and hypertransaminasemia (AST: 793 U/L, ALT: 463 U/L and Alkaline Phosphatase of 238 U/L) with Lactic Acidosis of 2.4 mmol/L present on admission after recent ERCP with stent removal complicated by UA positive for Acute Cystitis; without hematuria along with CT of the abdomen and pelvis positive for Constipation with large stool burden along with an old ~1.8 cm Left ovarian cyst vs. cystic mass similar in appearance to lesion [facility] Medical History History of biliary stent insertion Elevated liver enzymes Wears glasses Wears dentures Post-menopausal Arthritis Gastric reflux Non-smoker Leg cramps History of edema Constipation Home Medications ?Medication ?Instructions ?Recorded ?Last Taken ?Type NK 01/09/24 Unknown History Allergy/AdvReac Type Severity Reaction Status Date / Time No Known Allergies Allergy Verified 01/14/24 23:13 Family History Mother Hypertension Father No problems noted. Surgical History S/P ERCP S/P laparoscopic cholecystectomy Hx of vaginal surgery Social History household members: spouse Smoking Status: Never smoker alcohol intake: never substance use type: does not use ROS ROS Narrative Review of Systems: Constitutional: Patient admits to fever and chills. Eyes: Patient denies changes in vision or discharge from eyes. ENT: Patient denies runny nose, sore throat or ear pain. Resp: Patient denies SOB or cough. CV: Patient denies chest pain, palpitations or heart racing. GI: Patient denies abdominal pain, nausea, vomiting or diarrhea as per HPI. : Patient denies dysuria or hematuria. MSK: Patient denies arthralgias or myalgias. Skin: Patient denies rash, abscess, wound or jaundice. Neuro: Patient denies headache, paresthesias or focal neurologic deficits. Psych: Patient denies symptoms of uncontrolled depression or anxiety. Allergy: Patient denies lip swelling, tongue swelling or urticaria. Hematology: Patient denies easy bleeding or easy bruisability. Endocrinology: Patient denies polyuria, polydipsia and polyphagia. 14 point ROS otherwise negative except for positives noted above. Physical Exam Const alert and no apparent distress HEENT head/scalp atraumatic and moist oral mucous membranes Cardio regular rate, regular rhythm, S1 normal heart sound and S2 normal heart sound GI normal to inspection, nondistended, normoactive bowel sounds, soft to palpation, non-tender and non-distended Neuro Sensorium / Orientation: awake and alert Lab / Micro Data 01/16/24 04:09 01/16/24 04:09 Labs: Laboratory Results - last 24 hr 01/15/24 05:36: Hepatitis A IgM Ab Negative, Hep Bs Antigen Negative, Hep B Core IgM Ab Negative, Hepatitis C Ab (EIA) Non Reactive, Hep C Ab Comment Comment 01/16/24 04:09: WBC 4.9, RBC 4.03 L, Hgb 11.9 L, Hct 37.1, MCV 92.1, MCH 29.5, MCHC 32.1, RDW Std Deviation 43.5, RDW Coeff of Alicia 12.9, Plt Count 158, MPV 9.3, Immature Gran % (Auto) 0.600, Neut % (Auto) 75.7 H, Lymph % (Auto) 13.7 L, Toombs % (Auto) 7.8, Eos % (Auto) 1.2, Baso % (Auto) 1.0, Absolute Neuts (auto) 3.7, Absolute Lymphs (auto) 0.67 L, Nucleated RBC % 0.6, Sodium 141, Potassium 3.6, Chloride 112 H, Carbon Dioxide 24.0, Anion Gap 4 L, BUN 7, Creatinine 0.75, Estim Creat Clear Calc 63.79, Est GFR (MDRD) Af Amer 98, Est GFR (MDRD) Non-Af 81, BUN/Creatinine Ratio 9.3 L, Glucose 123 H, Calcium 8.3 L, Total Bilirubin 1.60 H, AST 710 H, ALT 703 H, Alkaline Phosphatase 309 H, Total Protein 5.6 L, A lbumin 2.7 L, Globulin 2.9, Albumin/Globulin Ratio 0.9 Micro: Microbiology 01/15/24 00:01 Urine, Clean Catch Urine Culture - Preliminary Culture exhibits no growth. Assessment & Plan Assessment/Plan (1) Elevated liver enzymes: (2) Postoperative fever: (3) UTI (urinary tract infection): QUALIFIERS: Urinary tract infection type: acute cystitis H ematuria presence: without hematuria Qualified Code(s): N30.00 - Acute cystitis without hematuria (4) Fatigue: QUALIFIERS: Fatigue type: unspecified Qualified Code(s): R53.83 - Other fatigue (5) S/P laparoscopic cholecystectomy: (6) Obesity (BMI 30.0-34.9): (7) Left ovarian cyst: (8) Constipation: QUALIFIERS: Constipation type: unspecified constipation type Q ualified Code(s): K59.00 - Constipation, unspecified PLAN: Plan Acute liver inflammation with an elevated direct bilirubin of 0.46 mg/dL and hypertransaminasemia (AST: 793 U/L, ALT: 463 U/L and Alkaline Phosphatase of 238 U/L) with Lactic Acidosis of 2.4 mmol/L present on admission after recent ERCP with stent removal - Admit to general medical floor under observation status. Continue empiric Zosyn begun in the ER. Keep NPO. Give ibuprofen prn for [id number] (level 1-5/10) pain or fever. Give Morphine prn for severe (level 6-10/10) pain. Give Zofran IV prn nausea. Avoid potentially hepatotoxic agents. Check hepatitis profile. She has a biliary stricture and possible retained stones that causes her bilirubin to go back up when the stent was removed. So we will perform ERCP with spyglass to evaluate her common bile duct. She was explained alternatives, risk, benefits include not withstanding bleeding, infection, sepsis, perforation, need emergent urgent . She have an ASA of 3. Charges/Coding Visit Charges Inpatient E&M: 99273 Init Hosp L3
--- NOTE | 2024-01-16 17:55 | RAD_ITS ---
ERCP next INDICATION: Abdominal pain. Fluoroscopy time: 70 seconds. Images obtained: 13 TECHNIQUE: Fluoroscopy the abdomen was utilized operating room during ERCP and possible images are cemented for interpretation. FINDINGS: There is a filling defect within the common bile duct worrisome for a common bile duct stone. Balloon sphincterotomy was performed. RAD/ERCP Biliary/Pancreas IMPRESSION: Suspect choledocholithiasis treated with balloon sphincterotomy. Electronically Signed: Raymundo Watts MD at 20:07 EDT ,
--- NOTE | 2024-01-16 18:46 | PCM.POST.ANE ---
Anesthesia: Postop Eval I Current Vital Signs Temperature: 98.5 F Pulse Rate: 76 Blood Pressure: 143/71 Respiratory Rate: 17 Pulse Ox: 96 Assessment Airway patent: Yes Spontaneous unlabored respirations: Yes nausea: No Vomiting: No Anesthesia Complication: No Fluid Hydration Crystalloid volume administer (ml): 300 Total IV fluid infused: 300 Progress Note Anesthesia document: Postop Eval 1 completed: Yes
--- NOTE | 2024-01-16 18:47 | POSTOPAN2_ITS ---
Anesthesia Postop Eval I Sum Postop Eval Completion status Anesthesia document: Postop Eval 1 completed: Yes Anesthesia Postop Eval I Summary Anesthesia Postop Eval I Summary: Anesthesia Postop Eval I: Assessment Summary Airway patent Yes 01/16/24 18:46 LIQUID WASTE TREATMENT PLANT OPERATOR.MDOT Spontaneous unlabored Yes 01/16/24 18:46 LIQUID WASTE TREATMENT PLANT OPERATOR.JACQUE respirations Mental status nausea No 01/16/24 18:46 LIQUID WASTE TREATMENT PLANT OPERATOR.MDOT Vomiting No 01/16/24 18:46 LIQUID WASTE TREATMENT PLANT OPERATOR.MDOT Anesthesia Postop Eval I: Fluid Summary Crystalloid volume administer 300 01/16/24 18:46 LIQUID WASTE TREATMENT PLANT OPERATOR.MDOT (ml) Colloids volume administered ( ml) Blood Product volume administered (ml) Total IV fluid infused 300 01/16/24 18:46 LIQUID WASTE TREATMENT PLANT OPERATOR.JACQUE Anesthesia Postop Eval I: Summary Notes Anesthesia Complication No 01/16/24 18:46 LIQUID WASTE TREATMENT PLANT OPERATOR.MDOT Anesthesia Complication Comment: Post-operative progress note Anesthesia: Postop Eval II Evaluation Mental status: Awake Pain Level: 0 nausea: No Vomiting: No
--- NOTE | 2024-01-16 18:47 | PCM.POSTANE2 ---
Anesthesia Postop Eval I Sum Postop Eval Completion status Anesthesia document: Postop Eval 1 completed: Yes Anesthesia Postop Eval I Summary Anesthesia Postop Eval I Summary: Anesthesia Postop Eval I: Assessment Summary Airway patent Yes 01/16/24 18:46 REPAIRING CALIBRATOR.MDOT Spontaneous unlabored Yes 01/16/24 18:46 REPAIRING CALIBRATOR.JACQUE respirations Mental status nausea No 01/16/24 18:46 REPAIRING CALIBRATOR.MDOT Vomiting No 01/16/24 18:46 REPAIRING CALIBRATOR.MDOT Anesthesia Postop Eval I: Fluid Summary Crystalloid volume administer 300 01/16/24 18:46 REPAIRING CALIBRATOR.MDOT (ml) Colloids volume administered ( ml) Blood Product volume administered (ml) Total IV fluid infused 300 01/16/24 18:46 REPAIRING CALIBRATOR.JACQUE Anesthesia Postop Eval I: Summary Notes Anesthesia Complication No 01/16/24 18:46 REPAIRING CALIBRATOR.MDOT Anesthesia Complication Comment: Post-operative progress note Anesthesia: Postop Eval II Evaluation Mental status: Awake Pain Level: 0 nausea: No Vomiting: No
--- NOTE | 2024-01-16 18:58 | OP.CCLET_ITS ---
01/16/2024 Camron Christianson Do Re : ERCP procedure for Lindsay Foster Dear Sammy This procedure was performed on Tuesday, January 16, 2024. My impressions and recommendations are as follows: Impressions : - The common bile duct was dilated, with a stone causing an obstruction. - Choledocholithiasis was found. Complete removal was accomplished by biliary sphincterotomy and balloon extraction. - A biliary sphincterotomy was performed. - The biliary tree was swept. - One stent was removed from the biliary tree. - Common bile duct was successfully dilated. - One covered metal stent was placed into the common bile duct. Recommendations : My findings are described in the full procedure note, which is enclosed. If I can be of further assistance, please feel free to contact me at . Sincerely, Evaristo Bagley, 01/16/2024 6:58:15 PM This report has been signed electronically.
--- NOTE | 2024-01-16 18:58 | OP.ERCP_ITS ---
Patient Name: Lindsay Fotser Procedure Date: 01/16/2024 5:21 PM Date of : 1955 Age: 68 Procedure: ERCP Indications: Bile duct stone(s), Jaundice, Elevated liver enzymes Providers: Evaristo Bagley DO Medicines: Monitored Anesthesia Care Patient Profile: This is a 68 year old female. Refer to note in patient chart for documentation of history and physical. Patient has symptoms of acute right upper quadrant abdominal pain. Her most recent ERCP for stone removal was within the past three months. Complications: No immediate complications. Procedure: Pre-Anesthesia Assessment: - Prior to the procedure, a History and Physical was performed, and patient medications and allergies were reviewed. The patient is competent. The risks and benefits of the procedure and the sedation options and risks were discussed with the patient. All questions were answered and informed consent was obtained. Patient identification and proposed procedure were verified by the physician in the pre-procedure area. Mental Status Examination: alert and oriented. Airway Examination: normal oropharyngeal airway and neck mobility. Respiratory Examination: clear to auscultation. CV Examination: normal. Prophylactic Antibiotics: The patient does not require prophylactic antibiotics. Prior Anticoagulants: The patient has taken no anticoagulant or antiplatelet agents except for NSAID medication. ASA Grade Assessment: II - A patient with mild systemic disease. After reviewing the risks and benefits, the patient was deemed in satisfactory condition to undergo the procedure. The anesthesia plan was to use general anesthesia. Immediately prior to administration of medications, the patient was re-assessed for adequacy to receive sedatives. The heart rate, respiratory rate, oxygen saturations, blood pressure, adequacy of pulmonary ventilation, and response to care were monitored throughout the procedure. The physical status of the patient was re-assessed after the procedure. After obtaining informed consent, the scope was passed under direct vision. Throughout the procedure, the patient's blood pressure, pulse, and oxygen saturations were monitored continuously. The Duodenoscope was introduced through the mouth, and advanced to the duodenum and used to inject contrast into the bile duct. The ERCP was accomplished without difficulty. The patient tolerated the procedure well. Scope In: 5:52:57 PM Scope Out: 6:23:19 PM Total Procedure Duration Time 0 hours 30 minutes 22 seconds Findings: The mannequin wig maker film was normal. The esophagus was successfully intubated under direct vision. The scope was advanced to a normal major papilla in the descending duodenum without detailed examination of the pharynx, larynx and associated structures, and upper GI tract. The upper GI tract was grossly normal. A long 0.021 inch Jagwire was passed into the biliary tree. The short-nosed traction sphincterotome was passed over the guidewire and the bile duct was then deeply cannulated. Contrast was injected. I personally interpreted the bile duct images. There was brisk flow of contrast through the ducts. Image quality was adequate. Contrast extended to the entire biliary tree. The lower third of the main bile duct contained two stones, the largest of which was 6 mm in diameter. The common bile duct was diffusely dilated, with a stone causing an obstruction. The largest diameter was 12 mm. A 5 mm biliary sphincterotomy was made with a traction (standard) sphincterotome using ERBE electrocautery. The sphincterotomy oozed blood. The biliary tree was swept with a 15 mm balloon starting at the left intrahepatic duct(s). All stones were removed. One stent was removed from the biliary tree using a 15 mm balloon. The stent was found to be partially occluded via the water column test. The bile duct was explored endoscopically using the SpMobile Multimedialass direct visualization system. The SpyScope was advanced to the left intrahepatic duct(s). Visibility with the scope was good. The main bile duct, common bile duct and hepatic duct bifurcation were normal. The in the biliary system were normal. Dilation of the common bile duct with an 8-9-10 mm balloon (to a maximum balloon size of 10 mm) dilator was successful. One 10 mm by 6 cm covered metal stent was placed 5 cm into the common bile duct. Bile flowed through the stent. The stent was in good position. Impression: - The common bile duct was dilated, with a stone causing an obstruction. - Choledocholithiasis was found. Complete removal was accomplished by biliary sphincterotomy and balloon extraction. - A biliary sphincterotomy was performed. - The biliary tree was swept. - One stent was removed from the biliary tree. - Common bile duct was successfully dilated. - One covered metal stent was placed into the common bile duct. Procedure Code(s): --- Professional --- 77745, Endoscopic retrograde cholangiopancreatography (ERCP); with removal and exchange of stent(s), biliary or pancreatic duct, including pre- and post-dilation and guide wire passage, when performed, including sphincterotomy, when performed, each stent exchanged [id number], Endoscopic retrograde cholangiopancreatography (ERCP); with removal of calculi/debris from biliary/pancreatic duct(s) 42054, Endoscopic cannulation of papilla with direct visualization of pancreatic/common bile duct(s) (List separately in addition to code(s) for primary procedure) 50916, 26, Endoscopic catheterization of the biliary ductal system, radiological supervision and interpretation CPT copyright 2021 [employer]. All rights reserved. The codes documented in this report are preliminary and upon neonatal critical care nurse review may be revised to meet current compliance requirements. Evaristo Bagley DO 01/16/2024 6:58:15 PM This report has been signed electronically. Number of Addenda: 0 Note Initiated On: 01/16/2024 5:21 PM
[2024-01-17 00:28] VITALS: BP 133/64; PULSE 53; RESP 14; TEMP 36.6; O2SAT 94
[2024-01-17 04:11] VITALS: BP 149/70; PULSE 57; RESP 16; TEMP 36.5; O2SAT 96
[2024-01-17 04:41] VITALS: BMI 33.6
[2024-01-17] MEDS: Piperacil/Tazobactam 3.375 GM in 0.9% Normal Saline (50mL MB+) 50 ML IV (05:29)
[2024-01-17 06:36] LABS: ALB/GLOB Ratio 0.9 RATIO (0.9-2.4); AST(SGOT) 299 U/L (15-37); Alanine Aminotransfer ALT/SGPT 525 U/L (13-56); Albumin, Serum 2.6 g/dL (3.2-5.0); Alkaline Phosphatase 335 U/L (45-117); Anion Gap 4 (5-15); BUN 5 mg/dL (7-18); BUN/Creat Ratio 7.2 RATIO (10-20); Calcium,Total 8.6 mg/dL (8.5-10.1); Chloride 114 mmol/L (98-107); Creatinine, Serum 0.69 mg/dL (0.55-1.02); EST Glomerular Filtration Rate 89 mL/min (>60); Est Glom Filt Rate - Afr Amer 108 mL/min (>60); Estimated Creatinine Clearance 63.89 ml/min; Glucose 83 mg/dL (74-106); Potassium 3.6 mmol/L (3.5-5.1); Protein, Total 5.6 g/dL (6.4-8.2); Sodium Level 142 mmol/L (136-145)
--- NOTE | 2024-01-17 07:01 | PCM.PN.HOSP ---
Reason for Visit Reason for Visit: Diagnoses Obesity, unspecified (01/15/24) Constipation, unspecified (01/15/24) Acute cystitis without hematuria (01/15/24) Unspecified ovarian cyst, left side (01/15/24) Postprocedural fever (01/15/24) Other fatigue (01/15/24) Abnormal levels of other serum enzymes (01/15/24) Acquired absence of other specified parts of digestive tract (01/15/24) Subjective Subjective Feels well post-ercp. No new events. Objective Data Objective Data Vital Signs: Vital Signs Temp Pulse Resp BP Pulse Ox O2 Del Method 36.5 C L 57 L 16 149/70 H 96 Room Air 01/17/24 04:11 01/17/24 04:11 01/17/24 04:11 01/17/24 04:11 01/17/24 04:11 01/17/24 04:11 Oxygen Delivery Method Room Air Weight: 80.739 kg Body Mass Index (BMI) 33.6 Intake & Output: Intake and Output for Last 24 Hours 01/15/24 01/16/24 01/17/24 23:59 23:59 23:59 Intake Total 2260.25 / 2260.25 2378.25 / 2378.25 50 / 50 Balance 2260.25 / 2260.25 2378.25 / 2378.25 50 / 50 Lab / Micro Data 01/16/24 04:09 01/17/24 05:20 Labs: Laboratory Results - last 24 hr 01/17/24 05:20: Sodium 142, Potassium 3.6, Chloride 114 H, Carbon Dioxide 24.0, Anion Gap 4 L, BUN 5 L, Creatinine 0.69, Estim Creat Clear Calc 63.89, Est GFR (MDRD) Af Amer 108, Est GFR (MDRD) Non-Af 89, BUN/Creatinine Ratio 7.2 L, Glucose 83, Calcium 8.6, Total Bilirubin 1.40 H, AST 299 H, ALT 525 H, Alkaline Phosphatase 335 H, Total Protein 5.6 L, Albumin 2.6 L, Globulin 3.0, Albumin/Globulin Ratio 0.9 Micro: Microbiology 01/15/24 00:01 Urine, Clean Catch Urine Culture - Preliminary Culture exhibits no growth. Physical Exam Const alert and no apparent distress HEENT head/scalp atraumatic and moist oral mucous membranes Resp normal respiratory effort and no retractions GI GI Narrative: soft NT ND. Assessment & Plan Assessment/Plan (1) Elevated liver enzymes: (2) Postoperative fever: (3) Fatigue: QUALIFIERS: Fatigue type: unspecified Qualified Code(s): R53.83 - Other fatigue (4) Left ovarian cyst: PLAN: Plan Choledocholithiasis causing acute transaminitis s/p cholecystectomy improved post ERCP. CT scan shows small bowel mesenteric stranding large colonic stool burden. Left ovarian 1.8 cm cyst or cystic mass that is unchanged from October 15, 2023. Abx w pip/tazo Acute hepatitis profile negative. ERCP: stone causing obstruction. Removal performed with biliary sphincterotomy with balloon extraction. Follow up with Gi for stent extraction. Abnormal urinalysis Rather benign looking at the leuk esterase is slightly elevated and white cells are minimally elevated though I would not feel that this qualifies urinary tract infection. Already on antibiotics with pip-tazo. Constipation Noted large stool burden on CT. Received fleets enema. Has subsequently had a bowel movement. Chronic condition Obesity class I: Complicates care and recovery GERD: PPI VTE prophylaxis with SCDs
[2024-01-17 07:44] VITALS: BP 133/69; PULSE 63; RESP 16; TEMP 36.4; O2SAT 97
[2024-01-17 08:57] LABS: Erythrocyte Sedimentation Rate 13 mm/hr (0-30)
--- NOTE | 2024-01-17 10:58 | DS.PCM_ITS ---
Providers Date of Admission: 01/15/24 Primary Care Physician: Camron Christianson PA-C Consultations 01/15/24 03:35 Consult: Gastroenterology Routine Consulting Provider: [facility] Reason for Consult: Fever and increased LFT's after ERCP with stent removal. EMERGENT Consult: No MD Notified: Yes Date Notified: 01/15/24 Time Notified: 06:11 Method of Notification: Text Reason For Visit: FEVER, CHILLS AD HYPERTRANSAMINASEMIA AFTER Diagnosis Discharge Diagnosis (1) Elevated liver enzymes: Status: Acute Code(s): R74.8 - Abnormal levels of other serum enzymes (2) Postoperative fever: Status: Acute Code(s): R50.82 - Postprocedural fever (3) Fatigue: Status: Acute Code(s): R53.83 - Other fatigue Qualifiers: Fatigue type: unspecified Qualified Code(s): R53.83 - Other fatigue (4) Left ovarian cyst: Status: Acute Code(s): N83.202 - Unspecified ovarian cyst, left side Plan Choledocholithiasis causing acute transaminitis * s/p cholecystectomy * improved post ERCP. * CT scan shows small bowel mesenteric stranding large colonic stool burden. Left ovarian 1.8 cm cyst or cystic mass that is unchanged from October 15, 2023. * Abx w pip/tazo * Acute hepatitis profile negative. * ERCP: stone causing obstruction. Removal performed with biliary sphincterotomy with balloon extraction. Follow up with Gi for stent extraction. Abnormal urinalysis * Rather benign looking at the leuk esterase is slightly elevated and white cells are minimally elevated though I would not feel that this qualifies urinary tract infection. Already on antibiotics with pip-tazo. Constipation * Noted large stool burden on CT. Received fleets enema. Has subsequently had a bowel movement. Chronic condition * Obesity class I: Complicates care and recovery * GERD: PPI VTE prophylaxis with SCDs Medications at Discharge Home Medications NK 01/09/24 Hospital Course Procedures - (ERCP) Summary of Care Provided Hospital Course: Patient presents with her chills and abdominal pain. Patient undergone an ERCP on the and then later developed fever or chills. Patient had elevated liver transaminases. Patient underwent another ERCP that showed choledocholithiasis. Patient has been fine since she has been here. She did have blood cultures that were performed that were negative. Urine culture showed mixed gram-positive organisms. COVID-19, influenza and RSV was negative. Patient will be discharged and follow-up with gastroenterology to have stent removal in the future. Patient advised to return if she has worsening symptoms. Weight / BMI Weight Weight: 80.739 kg Body Mass Index (BMI) 33.6 ABG / Lab / Microbiology Data 01/16/24 04:09 01/17/24 05:20 Laboratory: Laboratory Results - last 24 hr 01/17/24 05:20: ESR 13, Sodium 142, Potassium 3.6, Chloride 114 H, Carbon Dioxide 24.0, Anion Gap 4 L, BUN 5 L, Creatinine 0.69, Estim Creat Clear Calc 63.89, Est GFR (MDRD) Af Amer 108, Est GFR (MDRD) Non-Af 89, BUN/Creatinine Ratio 7.2 L, Glucose 83, Calcium 8.6, Total Bilirubin 1.40 H, AST 299 H, ALT 525 H, Alkaline Phosphatase 335 H, C-React Prot Ext Range 58.10 H, Total Protein 5.6 L, Albumin 2.6 L, Globulin 3.0, Albumin/Globulin Ratio 0.9 Microbiology: Microbiology 01/17/24 09:25 Mucosa - Nasopharyngeal SARS-CoV-2, Influenza & RSV (PCR) - Final 01/14/24 23:42 Blood Culture (Wb) - Anticubital Right Blood Culture - Preliminary No growth in 48 hours. 01/15/24 00:01 Urine, Clean Catch Urine Culture - Final Mixed Gram Positive Organisms D/C Instructions Discharge Diet: - (Clear liquid diet for 24 hours more than bland diet then advance as tolerated.) Meaningful Use Info Meaningful Use Meaningful Use Diagnoses (Choose all that apply): None applicable Ischemic Stroke Statin Dosing Therapy Reference: STATIN DOSE THERAPY REFERENCE: * Patients > 75 years receive moderate or high dose statin therapy. * Patients 75 years or YOUNGER should receive HIGH intensity statin dose unless contraindicated. You will be required to document reason for non-treatment if statin daily dose does not meet guidelines. HIGH DOSE STATIN THERAPY DAILY Atorvastatin > than or = to 40 mg Rosuvastatin > than or = to 20 mg Amlodipine + Atorvastatin > than or = to 2.5/40 mg Ezetimibe + Simvastatin 10/80 mg Simvastatin 80mg Discharge Plan Admission Admit Date/Time: 01/15/24 03:15 Primary Reason for Your Visit: Choledocholithiasis Attending Provider: Roberto Taylor Primary Care Provider: Camron Christianson Consulting Providers: Jose Reeder Discharge Orders/Prescriptions Prescriptions: No Action NK Referrals / Follow Up: [facility] [Provider Group] - Within 3 Months Camron Christianson PA-C [Primary Care Provider] - Within 2 Weeks Disposition Disposition (needs filled in before D/C Order can be placed): Home, Self Care Charges/Coding Visit Charges Inpatient E&M: 35998 Disch Hosp
[2024-01-17 11:02] VITALS: BP 135/60; PULSE 52; RESP 16; TEMP 37.1; O2SAT 97
[2024-01-17] MEDS: Pantoprazole Sodium 40 MG in 0.9% Normal Saline (100mL MB+) 100 ML 330 MG IV (11:05)
[2024-01-17] MEDS: 0.9% Normal Saline (1000mL) 1,000 ML 75 ML IV (11:07)
[2024-01-17] MEDS: 0.9% Saline Lock 10 ML Syringe IV (11:09)
[2024-01-20 16:10] LABS: Anti-Mitochondrial AB <20.0 Units (0.0-20.0)
[2024-01-22 00:06] LABS: Anti-Smooth Muscle ABS 5 Units (0-19); CMV Acute Antibody IgM < 30.0 AU/mL (0.0-29.9); EBV Acute VCA IgM < 36.0 U/mL (0.0-35.9); EBV Nuclear Antigen IgG 30.5 U/mL (0.0-17.9); HEPATITIS B SURFACE AG Negative (Negative); Hep C Antibodies Non Reactive (Non Reactive); Hepatitis A IgM Antibody Negative (Negative); Hepatitis B Core AB IgM Negative (Negative); Immunoglobulin A 164 mg/dL (87-352); Immunoglobulin E 4 IU/mL (6-495); Immunoglobulin G 789 mg/dL (586-1602); Immunoglobulin M 124 mg/dL (26-217)
== END 2024-01-17 12:58 | disposition home or self-care (01) ==
LOC: ED 01-15 02:52 → MS3 01-15 04:26
PROVIDERS: Internal Medicine Gastroenterology; Admitting Provider Internal Medicine; Emergency Provider Emergency Medicine; PCP Physician Assistant
PROC: (CPT 43260; principal; 2024-01-16 14:55)
DX: K80.51 Calculus of bile duct without cholangitis or cholecystitis with obstruction (principal); R74.8 Abnormal levels of other serum enzymes; N30.00 Acute cystitis without hematuria; Z90.49 Acquired absence of other specified parts of digestive tract; N83.202 Unspecified ovarian cyst, left side; R50.82 Postprocedural fever; Z68.31 Body mass index [BMI] 31.0-31.9, adult; K59.00 Constipation, unspecified; E66.9 Obesity, unspecified; M19.90 Unspecified osteoarthritis, unspecified site; K21.9 Gastro-esophageal reflux disease without esophagitis
CPT/HCPCS: 43264; 43276; 43273; 36415; 71046; 74177; 74330; 76000; 80048; 80053; 80074; 80076; 81001; 82784; 82785; 83516; 83605; 83690; 83735; 84100; 84443; 85025; 85652; 86140; 86645; 86664; 86665; 87040; 87086; 87088; 87631; 93005; 94668; 96361; 96365; 96366; 96367; 99221; 99285; J7030; J7050; Q9967; A4216; G0378; J2405